=== PATIENT | female | born 1960 | race Caucasian/White ===

== ENCOUNTER → 2016-09-01 | Outpatient (REF) | payer OTHER ==
[~2016-09-01] MED LIST: /ADVA50050 IN; /ESOM40CA PO; /INSU7030 SC; /INSULEV SC; /PREG25CA PO; ACET500C PO; ACTO45TA PO; ADV250INH INH; ALBU17IN INH; ALBU83IN INH; ALEN10TA2 OR; AMBI10TA OR; AMBI10TA PO; AMBI5TAB PO; AMIT10TA PO; AMIT75TA PO; AMIT75TA2 OR; AMOX500T PO; ANOR1AER INH; ASPI81TA13 PO; ASPI81TA85 PO; ATOR40TA PO; AUGM500T34 PO; AUGM875T27 PO; BACITAB PO; BACITAB3 PO; BACL10TA2 PO; BACT2CRE EX; BACT2CRE TOP; BACT800T OR; BACT800T5 PO; BUPR150T5 PO; BUPR300T34 PO; BUPROPION PO; BYETTA SC; CARV6.25 PO; CIPR500T89 PO; CLAR1TAB2 PO; CLAR5CHW OR; COLA100C PO; COLA100C2 OR; DEXT50IN6 IV; DOCQ100C PO; DRIS50002 PO; DULC10SU2 PR; DULC5TAB PO; FENO105T4 PO; FERR325T PO; FERR325T3 PO; FLUC100T PO; FLUC10TA PO; FLUD1TA PO; FOSA70TA PO; GABA-279 PO; GABA-283 PO; GABA300C3 PO; GLUCAGON SC; HUMA100I3 SC; IBUP200C PO; INSUDET SC; INSUH10VL INJ; INSUH10VL SC; INSULIN PEN SC; K-TA1TAB PO; KADIAN OR; KLOR1POW2 PO; KLOR1TAB77 PO; KLOR20TA PO; LACT10SO29 PO; LIDO5DIS36 TD; LIPI20TA OR; LOTR15CR EXT; LYRI150C PO; METH-107 PO; MICO7CR PV; MIRALEX PO; NEXI40CA PO; NIAC1TAB PO; NIAS1TAB PO; NIAS500T2 OR; NIASPAN ER PO; NICO21PAT TD; NITR4TASL SL; NOVOLOG SC; OMEP40CA2 PO; OXYB5TAB5 OR; OXYGEN; PERCOCET PO; PHEN25IN3 PO; PHENERGAN; PREG50CA PO; PROM25TA PO; PROT1TAB2 PO; RISP0.5T16 PO; RISP2TAB3 PO; RISP3TAB16 OR; RISP3TAB18 PO; SENN8.6C PO; SENN8.6T10 PO; SENNSYP PO; SENO8.6T2 PO; SENO8.6T9 PO; SERT100T OR; SPIR25TA2 PO; SUMA125TA OR; SUMA50TA2 PO; TOBRAMYCIN SULFATE IV; TRAM50TA2 PO; TRIC145T19 OR; TRIL135C PO; TYLE325T5 PO; TYLENOL PO; VALI5TAB PO; VENTAER INH; VENTOLIN ROTAHALER INH; VICODINES TAB OR; VIT D 2000 OR; VITA10002 PO; VITA200028 PO; VITA400T15 PO; VITA500046 PO; VITAMIN D PO; XANA0.5T PO; ZANT150T PO; ZOLO100T PO; ZOLO50TA PO; [UNRECOGNIZED DRUG - CODE] PO; [UNRECOGNIZED DRUG - CODE] PO; [UNRECOGNIZED DRUG - OTHER]; [UNRECOGNIZED DRUG - OTHER] PO; [UNRECOGNIZED DRUG - OTHER] SC; byetta; heparin lock flush IV; lantus SC; lortab PO; novolin 70/30 SC; percocet PO; saline lock flush IV
== END ==
LOC: M SMT 12:45
PROVIDERS: ATTEND Nurse Practitioner Women's Health
DX: N39.0 Urinary tract infection, site not specified (principal)

== ENCOUNTER → 2016-09-03 | Outpatient (CLI) | payer OTHER ==
--- NOTE | 2016-09-05 00:03 | ECWPNPC ---
PATIENT NAME: JULIO ONEILL : 1960 GENDER: FEMALE VISIT DATE: 09/03/2016 DISCHARGE DATE: 09/03/16 1140 VISIT LOCKED DATE TIME: PHYSICIAN: SEEMA KIRAN RESOURCE: SEEMA KIRAN REASON FOR APPOINTMENT 1. BACK HISTORY OF PRESENT ILLNESS HISTORY OF PRESENT ILLNESS: PAIN THE PATIENT DESCRIBES THE PAIN... FALL RISK SCREENING: SCREENING :NO FALLS IN THE PAST YEAR TODAY'S VISIT: NOTES: FELL ONE MONTH AGO AND FX LEFT FOOT. IS NOT ABLE TO USE CANE THIS CAUSES FALLS. IS NOT ABLE TO USE WALKER THIS WILL NOT LOCK AND IT "ROLLS AWAY" ON HER AND HAS CAUSED FALLS. HAS VERY POOR BALANCE. REPORTS PAIN , NUMBNESS AND BURNING IN BOTH HANDS AND FEET. CURRENT MEDICATIONS TAKING AMITRIPTYLINE HCL 50 MG TABLET 1 TABLET AT BEDTIME ORALLY ONCE A DAY TAKING VITAMIN B-12 1000 MCG TABLET 1 TABLET ORALLY ONCE A DAY TAKING FLUDROCORTISONE ACETATE 0.1 MG TABLET 1 TABLET ORALLY THREE TIMES A WEEK TAKING LEVEMIR 100 UNIT/ML . 64 UNITS SUBCUTANEOUS DAILYAT BEDTIME TAKING NITROGLYCERIN 0.4 MG TABLET SUBLINGUAL 1 TABLET UNDER THE TONGUE SUBLINGUAL DIRECTED TAKING OMEPRAZOLE 40 MG CAPSULE DELAYED RELEASE 1 CAPSULE ORALLY ONCE A DAY TAKING VITAMIN D 89700 UNIT CAPSULE 1 CAPSULE ORALLY WEEKLY TAKING TRILIPIX 135 MG CAPSULE DELAYED RELEASE 1 CAPSULE ORALLY ONCE A DAY TAKING ALPHA LIPOIC ACID 200 MG CAPSULE ORALLY DAILY TAKING METHOCARBAMOL 500 MG TABLET 1 TAB ORALLY Q 8 HRS NEEDED TAKING SUMATRIPTAN SUCCINATE 50 MG TABLET 1 TABLET NEEDED ORALLY TWICE A DAY TAKING FLUTICASONE PROPIONATE 50 MCG/ACT SUSPENSION 1 SPRAY IN EACH NOSTRIL NASALLY ONCE A DAY TAKING BACLOFEN 10 MG TABLET 1 TABLET WITH FOOD OR MILK ORALLY TWICE DAILY NEEDED FOR SPASMS TAKING BUPROPION HCL (XL) 300 MG TABLET EXTENDED RELEASE 24 HOUR 1 TABLET IN THE MORNING ORALLY ONCE A DAY TAKING FOSAMAX 70 MG TABLET 1 TABLET ORALLY WEEKLY TAKING ASPIR-81 81 MG TABLET DELAYED RELEASE 1 TABLET ORALLY ONCE A DAY TAKING TIZANIDINE HCL 2 MG TABLET 1 TABLET ORALLY THREE TIMES A DAY TAKING LYRICA 150 MG CAPSULE 1 CAPSULE ORALLY TAKE 1 CAP BID MDD=2 TAKING KLOR-CON 20 MEQ TABLET 2 TABLETS WITH FOOD ORALLY TWICE DAILY TAKING ONE TOUCH DELICA 33 GAUGE DIRECTED SUBCUTANEOUSLY DX:E11.9 BID AND PRN FOR SYMPTOMS MDD6 TAKING ONE TOUCH ULTRA TEST STRIPS STRIPS 1 STRIP DX:E11.9 BID AND PRN FOR SYMPTOMS MDD6 TAKING GLUCOMETER DIRECTED DX:E11.9 BID AND PRN FOR SYMPTOMS TAKING URECHOLINE 25 MG TABLET 1 TABLET ON AN EMPTY STOMACH ORALLY THREE TIMES A DAY TAKING VENTOLIN HFA 108 (90 BASE) MCG/ACT AEROSOL SOLUTION 2 PUFFS INHALATION QID PRN TAKING ANORO ELLIPTA UMECLIDINIUM 62.5 MCG AND VILANTEROL 25 MCG INHALATION POWDER 1 INHALATION ORAL ONCE DAILY TAKING TRAMADOL HCL 50 MG TABLET 1 TABLET ORALLY EVERY 6 HRS PRN PAIN MDD=3 MEDICATION LIST REVIEWED AND RECONCILED WITH THE PATIENT PAST MEDICAL HISTORY DM II- DIAGNOSED ABOUT [address] 2ND TO DM HTN ANXIETY/DEPRESSION ASTHMA/COPD PFTS, [facility], 03/08/2015. NONSPECIFIC AIRFLOW REDUCTION, MILD AIR TRAPPING AND MODERATE DIFFUSION IMPAIRMENT. SOME IMPROVEMENT NOTED FOLLOWING BRONCHO-DILATOR ADMINISTRATION DIVERTICULOSIS GERD OSTEOPENIA DEXA 01/04 KIDNEY STONES ATROPHIC KIDNEY (REMOVED) MIGRAINE HEADACHES DIZZINESS HEART MURMUR; DX 2000 (HOLISTIC) ECHOARDIOGRAM08/05/10 ALTERED DIASTOLIC COMPLIANCE EF 65& STRESS NUCLEAR REGADENOSON08/07/10 NORMAL STUDY, NORMAL LV FUNCTION EF72% 03/21/2016, ECHOCARDIOGRAM [facility], NO SIGNIFICANT VALVULAR DISEASE, TRACE MITRAL INSUFFICIENCY, LEFT VENTRICULAR SYSTOLIC FUNCTION NORMAL, LEFT VENTRICULAR DIASTOLIC FUNCTION SHOWS ABNORMAL RELAXATION NO INTRACARDIAC MASSES OR VEGETATIONS OR PERICARDIAL EFFUSION. LEFT ANKLE FX-TX'D WITH BRACE ALLERGIES CIPRO: RASH: ALLERGY SOCIAL HISTORY GENERAL: TOBACCO USE ARE YOU A:NONSMOKER LEARNING BARRIERS / SPECIAL NEEDS ORIENTED TO PLAN OF CARE: PATIENT, PAIN MANAGEMENT PATIENT, ORIENTED TO PLAN OF CARE: PATIENT, PAIN MANAGEMENT PATIENT. NEW PATIENT PAIN DIARY TODAY'S VISITNOTES FROM 0-10, WHAT LEVEL IS YOUR PAIN TODAY?0 PAIN CLINIC PFS, CLERGY, PUBLIC HEALTH REFERRALS PFS REFERRAL NEEDED?NO CLERGY REFERRAL NEEDED?NO PUBLIC HEALTH REFERRAL NEEDED?NO WAS THE PROVIDER NOTIFIED OF ANY PERTINENT INFO?NO PFS REFERRAL NEEDED?NO CLERGY REFERRAL NEEDED?NO PUBLIC HEALTH REFERRAL NEEDED?NO WAS THE PROVIDER NOTIFIED OF ANY PERTINENT INFO?NO REVIEW OF SYSTEMS CONSTITUTIONAL: ANY CHANGE IN YOUR MEDICAL CONDITION? YES FELL 07/2016. FX'D LEFT ANKLE-TX'D WITH BRACE&NBSP;. CHILLS &NBSP;&NBSP; NO&NBSP;. FEVER &NBSP;&NBSP; NO&NBSP;. INFECTION: DO YOU HAVE NEW INFECTIONS? NO . DO YOU HAVE HISTORY OF MRSA? YES-UNSURE OF LOCATION . MUSCULOSKELETAL: ANY NEW PATTERNS OF PAIN OR NUMBNESS? YES RIGHT LOWER ABDOMEN. EVALUATED BY GABRIELE ANDERSON. URINE SPECIMEN SENT. . GASTROENTEROLOGY: ANY NEW CHANGE IN BOWEL CONTROL? NO . GENITOURINARY: ANY NEW CHANGE IN BLADDER CONTROL? NO . IS THERE A CHANCE YOU COULD BE ? NO . HEMATOLOGY/LYMPH: DO YOU TAKE ANY BLOOD THINNERS? (FOR EXAMPLE- COUMADIN, PLAVIX, AGGRENOX, PLATEL, PRADAXA, OR XARELTO) NO . WHEN WAS YOUR LAST DOSE? DATE: TIME: . NEUROLOGY: HAVE YOU FALLEN IN THE PAST 6 MONTHS? YES FELL 07/2016. FX'D LEFT ANKLE.&NBSP;. ANY NEW EXTREMITY NUMBNESS OR WEAKNESS? &NBSP;&NBSP; NO&NBSP;. CARDIOLOGY: DO YOU HAVE A PACEMAKER OR DEFIBRILLATOR? NO . RESPIRATORY: HAVE YOU BEEN SICK IN THE PAST WEEK? NO . FEVER NO . FLU LIKE SYMPTOMS? NO . COUGH YES, PRODUCTIVE, YELLOW SPUTUM . INTEGUMENTARY: DO YOU HAVE ANY RASHES OR OPEN SORES? NO . ALLERGIC/IMMUNO: ARE YOU ALLERGIC TO SHELLFISH OR IV DYE? NO . ANY NEW ALLERGIES? NO . PSYCHIATRIC: DO YOU HAVE THOUGHTS OF HURTING YOURSELF OR SOMEONE ELSE? NO . ARE YOU ABUSED, NEGLECTED, OR IN AN UNSAFE ENVIRONMENT? NO . ENDOCRINOLOGY: ARE YOU DIABETIC? YES . OTHER: DO YOU NEED ANY PRESCRIPTIONS? NO . IF YES, PLEASE LIST: ____ . ANY NEW PROBLEMS WITH YOUR MEDICATIONS? NO . WHEN DID YOU LAST EAT? ____ . WHEN DID YOU LAST DRINK? ____ . WHAT DID YOU LAST DRINK? ____ . NAME OF PERSON DRIVING YOU HOME? ____ . DO YOU HAVE ANY OTHER QUESTIONS OR CONCERNS NO . REVIEWED BY: PROVIDER: SEEMA ARAGON . VITAL SIGNS WT 166.4 LBS, HT 62.5", BMI 29.95 INDEX, BP 147/79 MM HG, HR 79 /MIN, RR 16 /MIN, TEMP 97.3 F, OXYGEN SAT % 94%, NA INITIALS SC 10:42, REVIEWED BY: RINA. EXAMINATION GENERAL EXAMINATION: GENERAL APPEARANCE:GOOD COLOR. PSYCHALERT , ORIENTED X 3 , APPROPRIATE MOOD AND AFFECT . LUNGS:CLEAR TO AUSCULTATION BILATERALLY. HEART:HEART RATE REGULAR, NO MURMURS. MUSCULOSKELETAL:HYPERSENSITIVITY TO LIGHT TOUCH OVER LUMBAR REGION. VERY POOR BALANCE. USING WALL FOR SUPPORT. . EXTREMITIES:WALKING CAST IN PLACE LEFT FOOT. SKIN:FINGER TIPS BOTH HANDS SPLIT, FINGERS ALTERNAT IN COLOR FROM DUSKY BLUE TO WHITE. FINGERS VERY COLD TO TOUCH. ECCYMOTIC AREAS NOTED BILATERAL FOREARMS.. NEUROLOGIC EXAM:MARKED DECREASE IN SENSATION IN STOCKING/GLOVE FASHIN OVER BILATERAL LOWER EXTREMITIES TO LEVEL OF KNEE, AND UPPER EXTREMITIES TO MID FOREARM. ASSESSMENTS LUMBAR SPONDYLOSIS - M47.816 (PRIMARY) RAYNAUD'S DISEASE WITH GANGRENE - I73.01 NEUROPATHY - G62.9 TREATMENT LUMBAR SPONDYLOSIS START NIFEDIPINE CAPSULE, 10 MG, 1 CAPSULE, ORALLY, DAILY, 30 DAY(S), 30 CAPSULE, REFILLS 1 NOTES: USE WALKER. NEW SCRIPT FOR WALKER GIVEN. IF UNABLE TO OBTAIN THIS RECOMMEND CONTACT [facility] SMOKING - ESSENTIAL FOR RAYNAUDS OF HANDS. PREVENTIVE MEDICINE PAIN CLINIC TEACHING: MEDICATIONS PRINTED HANDOUT FOR NIFEDIPINE GIVEN/REVIEWED.. PROCEDURE CODES FA211 ESTABILISHED PATIENT [facility] CHARGE DISPOSITION & COMMUNICATION FOLLOW UP I MONTH ELECTRONICALLY SIGNED BY ASH MYLES ON 09/04/2016 AT 11:17 AM EST DISCLAIMER : THIS IS A VISIT SUMMARY EXTRACTED FROM THE [employer] CHART. IT IS NOT A COPY OF THE [employer] PROGRESS NOTE. MICHAEL
== END ==
LOC: M PAIN 10:40
PROVIDERS: ATTEND Nurse Practitioner Family
DX: Z09 Encounter for follow-up examination after completed treatment for conditions other than malignant neoplasm (principal); G89.29 Other chronic pain; M47.816 Spondylosis without myelopathy or radiculopathy, lumbar region; I73.01 Raynaud's syndrome with gangrene; G62.9 Polyneuropathy, unspecified; E11.9 Type 2 diabetes mellitus without complications; I10 Essential (primary) hypertension; F41.9 Anxiety disorder, unspecified; F32.9 Major depressive disorder, single episode, unspecified; J44.9 Chronic obstructive pulmonary disease, unspecified; K21.9 Gastro-esophageal reflux disease without esophagitis; M85.80 Other specified disorders of bone density and structure, unspecified site; G43.909 Migraine, unspecified, not intractable, without status migrainosus; Z88.8 Allergy status to other drugs, medicaments and biological substances; Z79.82 Long term (current) use of aspirin; Z79.52 Long term (current) use of systemic steroids; Z79.891 Long term (current) use of opiate analgesic; Z79.899 Other long term (current) drug therapy; Z87.81 Personal history of (healed) traumatic fracture; Z86.14 Personal history of Methicillin resistant Staphylococcus aureus infection; Z90.5 Acquired absence of kidney

== ENCOUNTER → 2016-10-24 | Outpatient (CLI) | payer OTHER ==
[~2016-10-24] MED LIST changes: -COLA100C PO; +COLA100C3 PO; +GABA-282 PO; -GABA300C3 PO; +TRIL135C6 PO
[2016-10-24 12:58] LABS: ALBUMIN 2.5 GM/DL (3.2-5.2); CALCIUM LEVEL 9.5 MG/DL (8.5-10.1); CREATININE FOR GFR 1.19 MG/DL (0.55-1.02); GLOMERULAR FILTRATION RATE 50.3 (>51); PHOSPHORUS LEVEL 4.4 MG/DL (2.5-4.9)
[2016-10-24 13:05] LABS: MEAN CORPUSCULAR HGB CONC 33.2 g/dl (32.0-36.5); MEAN CORPUSCULAR VOLUME 90.4 fl (80.0-96.0); RED CELL DISTRIBUTION WIDTH 12.7 % (11.5-14.5); WHITE BLOOD COUNT 11.4 K/mm3 (4.0-10.0)
[2016-10-24 13:34] LABS: BANDS 1 % (< 11); BASOPHILS 1 % (0-4); EOSINOPHILS 1 % (0-5)
[2016-10-24 13:35] LABS: ANISOCYTOSIS 1+
== END ==
LOC: M WUC 11:23
PROVIDERS: ATTEND Physician Assistant
DX: M54.5 Low back pain (principal)

== ENCOUNTER → 2016-10-26 | Outpatient (CLI) | payer OTHER ==
--- NOTE | 2016-10-26 12:44 | REP ---
Chest two views HISTORY: Fever Comparison: 03/10/2016 The lungs are clear. The heart is normal in size. The pulmonary vasculature is normal in appearance. The bony structure is intact. IMPRESSION: No acute disease. Signed by Philip Camargo MD 10/26/2016 12:35 P
[2016-10-26 13:15] LABS: BASO # 0.1 K/mm3 (0.0-0.2); EOS # 0.2 K/mm3 (0.0-0.50); EOS % 2.4 % (0.0-3.0); LARGE UNSTAINED CELL # 0.2 K/mm3 (0.0-0.4); LYMPH # 2.2 K/mm3 (1.5-4.5); LYMPH % 22.1 % (24.0-44.0); MEAN CORPUSCULAR HEMOGLOBIN 29.8 pg (27.0-33.0); MEAN CORPUSCULAR HGB CONC 33.2 g/dl (32.0-36.5); MEAN CORPUSCULAR VOLUME 89.8 fl (80.0-96.0); MONO # 0.6 K/mm3 (0.0-0.8); MONO % 6.3 % (0.0-5.0); NEUTROPHILS # 6.1 K/mm3 (1.8-7.7); NEUTROPHILS % 66.1 % (36.0-66.0); PLATELET COUNT, AUTOMATED 339 k/mm3 (150-450); RED CELL DISTRIBUTION WIDTH 12.6 % (11.5-14.5); WHITE BLOOD COUNT 9.2 K/mm3 (4.0-10.0)
[2016-10-26 13:45] LABS: ALBUMIN 2.5 GM/DL (3.2-5.2); ALBUMIN/GLOBULIN RATIO 0.69 (1.00-1.93); BILIRUBIN,TOTAL 0.2 MG/DL (0.2-1.0); CALCIUM LEVEL 9.6 MG/DL (8.5-10.1); CREATININE FOR GFR 1.19 MG/DL (0.55-1.02); GLOMERULAR FILTRATION RATE 50.3 (>51); POTASSIUM SERUM 5.1 MEQ/L (3.5-5.1); TOTAL PROTEIN 6.1 GM/DL (6.4-8.2)
== END ==
LOC: M WUC 12:00
PROVIDERS: ATTEND Physician Assistant
DX: R50.9 Fever, unspecified (principal)

== ENCOUNTER 2016-10-28 17:43 | Emergency (ER) | payer OTHER ==
[~2016-10-28] VITALS: Ht 157.5 cm; Wt 69.9 kg
[2016-10-28 18:53] LABS: BASO # 0.1 K/mm3 (0.0-0.2); BASO % 0.6 % (0.0-1.0); EOS # 0.3 K/mm3 (0.0-0.50); EOS % 2.8 % (0.0-3.0); LARGE UNSTAINED CELL # 0.3 K/mm3 (0.0-0.4); LARGE UNSTAINED CELL % 2.5 % (0.0-4.0); LYMPH # 2.3 K/mm3 (1.5-4.5); MEAN CORPUSCULAR HEMOGLOBIN 31.9 pg (27.0-33.0); MEAN CORPUSCULAR HGB CONC 34.8 g/dl (32.0-36.5); MEAN CORPUSCULAR VOLUME 91.8 fl (80.0-96.0); MONO # 0.6 K/mm3 (0.0-0.8); MONO % 6.3 % (0.0-5.0); NEUTROPHILS # 6.6 K/mm3 (1.8-7.7); NEUTROPHILS % 64.8 % (36.0-66.0); PLATELET COUNT, AUTOMATED 319 k/mm3 (150-450); RED CELL DISTRIBUTION WIDTH 12.6 % (11.5-14.5); WHITE BLOOD COUNT 10.2 K/mm3 (4.0-10.0)
[2016-10-28 19:05] LABS: ALBUMIN 2.6 GM/DL (3.2-5.2); ALBUMIN/GLOBULIN RATIO 0.63 (1.00-1.93); ALKALINE PHOSPHATASE 111 U/L (45-117); ALT/SGPT 38 U/L (12-78); ANION GAP 9 MEQ/L (8-16); AST/SGOT 31 U/L (15-37); BILIRUBIN,DIRECT < 0.1 MG/DL (0.0-0.2); BILIRUBIN,TOTAL 0.1 MG/DL (0.2-1.0); BLOOD UREA NITROGEN 36 MG/DL (7-18); CALCIUM LEVEL 9.1 MG/DL (8.5-10.1); CARBON DIOXIDE LEVEL 26 MEQ/L (21-32); CHLORIDE LEVEL 103 MEQ/L (98-107); CREATININE FOR GFR 1.08 MG/DL (0.55-1.02); GLOMERULAR FILTRATION RATE 56.3 (>51); GLUCOSE, FASTING 105 MG/DL (70-105); POTASSIUM SERUM 4.4 MEQ/L (3.5-5.1); SODIUM LEVEL 138 MEQ/L (136-145); TOTAL PROTEIN 6.7 GM/DL (6.4-8.2)
--- NOTE | 2016-10-28 20:20 | REPUSA ---
CT of the head Clinical history: Headache. Comparison: 01/29/2014. Technique: Multiple axial CT images were obtained through the head without administration of contrast . Findings: The ventricles and sulci are symmetric bilaterally. There is no evidence of acute hemorrhag e or infarct. There is no midline shift, mass effect, or extra-axial fluid collection. The osseous st ructures are unremarkable. The visualized paranasal sinuses and mastoid air cells are clear. Impression: Negative study.
--- NOTE | 2016-10-28 20:30 | REPUSA ---
Clinical history: Pain, swelling. Findings: The common femoral, superficial femoral, popliteal, and other deep venous structures compre ss normally and demonstrate normal color Doppler flow. Normal venous waveforms with augmentation are seen. Impression: No evidence of deep vein thrombosis in either femoral popliteal venous system.
[2016-10-28 21:36] VITALS: BP 132/88
[2016-10-28] MEDS ORDERED: PERCOCET 5MG/325MG TAB PO ONE (22:00)
[2016-10-28] MEDS ORDERED: OXYCODONE/APAP 5MG/325MG(BULK FOR ED) 1 TABLET PO ONE (22:00)
--- NOTE | 2016-10-29 08:18 | ECGEPIP ---
Stationary ECG Study [facility] - ED Test Date: 2016-10-28 Pat Name: JULIO ONEILL Department: Room: - Gender: F Superintendent Local: ruth : 1960 Requested By: ROMEO Hodges Order Number: [id number] Reading MD: Sylwia Saavedra Measurements Intervals [place] Rate: 69 P: 36 UT: 184 QRS: -7 QRSD: 110 T: 79 QT: 383 QTc: 411 Interpretive Statements SINUS RHYTHM POSSIBLE ANTERIOR MYOCARDIAL INFARCTION, OF INDETERMINATE AGE SIMILAR 01/16/16 Electronically Signed On 10-29-2016 8:18:25 EDT by Sylwia Saavedra
== END 2016-10-28 22:14 | disposition home or self-care (01) ==
LOC: M ED 18:46
DX: R07.9 Chest pain, unspecified (principal); R51 Headache; I51.9 Heart disease, unspecified; I12.9 Hypertensive chronic kidney disease with stage 1 through stage 4 chronic kidney disease, or unspecified chronic kidney disease; E11.22 Type 2 diabetes mellitus with diabetic chronic kidney disease; N18.9 Chronic kidney disease, unspecified; F41.9 Anxiety disorder, unspecified; F32.9 Major depressive disorder, single episode, unspecified; F17.200 Nicotine dependence, unspecified, uncomplicated; Z87.442 Personal history of urinary calculi; Z96.0 Presence of urogenital implants; Z90.5 Acquired absence of kidney

== ENCOUNTER → 2016-10-28 | Outpatient (CLI) | payer OTHER ==
[2016-10-28 14:53] LABS: BASO # 0.1 K/mm3 (0.0-0.2); BASO % 0.6 % (0.0-1.0); EOS # 0.2 K/mm3 (0.0-0.50); EOS % 1.6 % (0.0-3.0); LARGE UNSTAINED CELL # 0.2 K/mm3 (0.0-0.4); LARGE UNSTAINED CELL % 1.3 % (0.0-4.0); LYMPH # 2.4 K/mm3 (1.5-4.5); LYMPH % 19.9 % (24.0-44.0); MEAN CORPUSCULAR HEMOGLOBIN 30.2 pg (27.0-33.0); MEAN CORPUSCULAR HGB CONC 33.6 g/dl (32.0-36.5); MEAN CORPUSCULAR VOLUME 89.9 fl (80.0-96.0); MONO # 0.6 K/mm3 (0.0-0.8); NEUTROPHILS # 8.2 K/mm3 (1.8-7.7); NEUTROPHILS % 71.5 % (36.0-66.0); PLATELET COUNT, AUTOMATED 321 k/mm3 (150-450); RED CELL DISTRIBUTION WIDTH 12.7 % (11.5-14.5); WHITE BLOOD COUNT 11.5 K/mm3 (4.0-10.0)
[2016-10-28 15:11] LABS: ALBUMIN 2.4 GM/DL (3.2-5.2); CALCIUM LEVEL 9.2 MG/DL (8.5-10.1); CREATININE FOR GFR 1.17 MG/DL (0.55-1.02); GLOMERULAR FILTRATION RATE 51.3 (>51); MAGNESIUM LEVEL 1.6 MG/DL (1.8-2.4); PHOSPHORUS LEVEL 3.9 MG/DL (2.5-4.9); POTASSIUM SERUM 4.8 MEQ/L (3.5-5.1)
== END ==
LOC: M WUC 11:58
PROVIDERS: ATTEND Internal Medicine Nephrology
DX: N18.3 Chronic kidney disease, stage 3 (moderate) (principal)

== ENCOUNTER → 2016-10-29 | Outpatient (REF) | payer OTHER | LOC: M SFHCPLAZ 13:08 | PROVIDERS: ATTEND Nurse Practitioner Adult Health | DX: E11.21 Type 2 diabetes mellitus with diabetic nephropathy (principal) ==

== ENCOUNTER → 2016-11-04 | Outpatient (CLI) | payer OTHER ==
[~2016-11-04] MED LIST changes: +ALPH1CAP PO; +ASPI81TAEC PO; +BETH50TA2 PO; +FLON1SPR; +KEFL500C7 PO; +LISI2.5T3 PO; +MAGN1TAB25 PO; +MIRA33504 PO; +NIFE10CA2 PO; +QUES4POW PO; +TIZA2CAP3 PO; +TOUJ1.2I SC
--- NOTE | 2016-11-24 23:43 | ECWPNPC ---
PATIENT NAME: JULIO ONEILL : 1960 GENDER: FEMALE VISIT DATE: 11/04/2016 DISCHARGE DATE: 11/04/16 1133 VISIT LOCKED DATE TIME: PHYSICIAN: SEEMA KIRAN RESOURCE: SEEMA KIRAN REASON FOR APPOINTMENT 1. BACK HISTORY OF PRESENT ILLNESS HISTORY OF PRESENT ILLNESS: PAIN THE PATIENT DESCRIBES THE PAIN... FALL RISK SCREENING: SCREENING :NO FALLS IN THE PAST YEAR TODAY'S VISIT: NOTES: RATES PAIN TODAY 9/10. DESCRIBES PAIN CONSTANT, BURNING AND TENDER. PAIN IS CENTERED TODAY OVER MID AND UPPER BACK. CAME BY AMBULANCE TO HOSPITAL.STATES IS HAVING INTENSE PAIN IN LEGS AND BACK. TELLS ME THAT THE PERCOCET GIVEN IN THE ER HELPED A LOT. TELLS ME THAT SHE WAS STARTED ON MEDICATION BY DR ARAYA FOR LEG PAIN.. CURRENT MEDICATIONS TAKING AMITRIPTYLINE HCL 50 MG TABLET 1 TABLET AT BEDTIME ORALLY ONCE A DAY TAKING FLUDROCORTISONE ACETATE 0.1 MG TABLET 1 TABLET ORALLY THREE TIMES A WEEK TAKING NITROGLYCERIN 0.4 MG TABLET SUBLINGUAL 1 TABLET UNDER THE TONGUE SUBLINGUAL DIRECTED TAKING OMEPRAZOLE 40 MG CAPSULE DELAYED RELEASE 1 CAPSULE ORALLY ONCE A DAY TAKING TRILIPIX 135 MG CAPSULE DELAYED RELEASE 1 CAPSULE ORALLY ONCE A DAY TAKING ALPHA LIPOIC ACID 200 MG CAPSULE ORALLY DAILY TAKING SUMATRIPTAN SUCCINATE 50 MG TABLET 1 TABLET NEEDED ORALLY TWICE A DAY TAKING FLUTICASONE PROPIONATE 50 MCG/ACT SUSPENSION 1 SPRAY IN EACH NOSTRIL NASALLY ONCE A DAY TAKING ASPIR-81 81 MG TABLET DELAYED RELEASE 1 TABLET ORALLY ONCE A DAY TAKING LYRICA 150 MG CAPSULE 1 CAPSULE ORALLY TAKE 1 CAP BID MDD=2 TAKING KLOR-CON 20 MEQ TABLET 2 TABLETS WITH FOOD ORALLY TWICE DAILY TAKING ONE TOUCH DELICA 33 GAUGE DIRECTED SUBCUTANEOUSLY DX:E11.9 BID AND PRN FOR SYMPTOMS MDD6 TAKING ONE TOUCH ULTRA TEST STRIPS STRIPS 1 STRIP DX:E11.9 BID AND PRN FOR SYMPTOMS MDD6 TAKING GLUCOMETER DIRECTED DX:E11.9 BID AND PRN FOR SYMPTOMS TAKING URECHOLINE 25 MG TABLET 1 TABLET ON AN EMPTY STOMACH ORALLY THREE TIMES A DAY TAKING VENTOLIN HFA 108 (90 BASE) MCG/ACT AEROSOL SOLUTION 2 PUFFS INHALATION QID PRN TAKING ANORO ELLIPTA UMECLIDINIUM 62.5 MCG AND VILANTEROL 25 MCG INHALATION POWDER 1 INHALATION ORAL ONCE DAILY TAKING NIFEDIPINE 10 MG CAPSULE 1 CAPSULE ORALLY DAILY TAKING BUPROPION HCL ER (XL) 300 MG TABLET EXTENDED RELEASE 24 HOUR 1 TABLET IN THE MORNING ORALLY ONCE A DAY TAKING FOSAMAX 70 MG TABLET 1 TABLET ORALLY WEEKLY TAKING TIZANIDINE HCL 2 MG TABLET 1 TABLET ORALLY THREE TIMES A DAY TAKING BACLOFEN 10 MG TABLET 1 TABLET WITH FOOD OR MILK ORALLY TWICE DAILY NEEDED FOR SPASMS TAKING TRAMADOL HCL 50 MG TABLET 1-2 TABLET ORALLY EVERY 6 HRS PRN PAIN MDD=4 TAKING TOUJEO SOLOSTAR 300 UNIT/ML SOLUTION PEN-INJECTOR 64 UNITS SUBCUTANEOUS DAILY TAKING PEN NEEDLES 31G X 8 MM MISCELLANEOUS 1 WITH TOUJEO SUBCUTANEOUSLY DAILY - ICD10 - E11.21 TAKING DEPEND ADJUSTABLE UNDERWEAR LG - MISCELLANEOUS 1 ICD10 - E11.21 NEEDED TAKING OXYCODONE-ACETAMINOPHEN 5-325 MG TABLET 1 TABLET NEEDED ORALLY EVERY 6 HRS, NOTES: TAKING ONCE A DAY-FROM ER TAKING [facility] PROTECTIVE UNDERWEAR LGE - MISCELLANEOUS DIRECTED 44-58 RX:N39.3 TAKING LISINOPRIL 10 MG TABLET 1 TABLET ORALLY ONCE A DAY NOT-TAKING VITAMIN B-12 1000 MCG TABLET 1 TABLET ORALLY ONCE A DAY NOT-TAKING VITAMIN D 03509 UNIT CAPSULE 1 CAPSULE ORALLY WEEKLY NOT-TAKING NOVOLOG FLEXPEN 100 UNIT/ML SOLUTION PEN-INJECTOR SS SUBCUTANEOUS THREE TIMES DAILY NOT-TAKING METHOCARBAMOL 500 MG TABLET 1 TAB ORALLY Q 8 HRS NEEDED MEDICATION LIST REVIEWED AND RECONCILED WITH THE PATIENT PAST MEDICAL HISTORY DM II- DIAGNOSED ABOUT [address] [facility] 2ND TO DM HTN ANXIETY/DEPRESSION ASTHMA/COPD PFTS, [facility], 03/08/2015. NONSPECIFIC AIRFLOW REDUCTION, MILD AIR TRAPPING AND MODERATE DIFFUSION IMPAIRMENT. SOME IMPROVEMENT NOTED FOLLOWING BRONCHO-DILATOR ADMINISTRATION DIVERTICULOSIS GERD OSTEOPENIA DEXA 01/04 KIDNEY STONES ATROPHIC KIDNEY (REMOVED) MIGRAINE HEADACHES DIZZINESS HEART MURMUR; DX 2000 (HOLISTIC) ECHOARDIOGRAM08/05/10 ALTERED DIASTOLIC COMPLIANCE EF 65& STRESS NUCLEAR REGADENOSON08/07/10 NORMAL STUDY, NORMAL LV FUNCTION EF72% 03/21/2016, ECHOCARDIOGRAM [facility] [place] [facility], NO SIGNIFICANT VALVULAR DISEASE, TRACE MITRAL INSUFFICIENCY, LEFT VENTRICULAR SYSTOLIC FUNCTION NORMAL, LEFT VENTRICULAR DIASTOLIC FUNCTION SHOWS ABNORMAL RELAXATION NO INTRACARDIAC MASSES OR VEGETATIONS OR PERICARDIAL EFFUSION. LEFT ANKLE FX-TX'D WITH BRACE ALLERGIES CIPRO: RASH: ALLERGY SURGICAL HISTORY NEPHROSTOMY TUBE PLACEMENT UPJ REPAIR ROBOTIC ASSISTED RIGHT RADICAL NEPHRECTOMY; REMOVAL OF RIGHT DOUBLE J STENT 12/20/2013 FAMILY HISTORY FATHER: , UNKNOWN HEALTH MOTHER: , UNKNOWN 6 BROTHERS (2 )- UNKNOWN HEALTH5 SISTERS UNKNOWN HEALTH3 BOYS ( 1 MISSING) HEALTHY1 DAUGHTER, HEALTHY 6 BROTHERS (2 )- UNKNOWN HEALTH5 SISTERS UNKNOWN HEALTH3 BOYS ( 1 MISSING) HEALTHY1 DAUGHTER, HRALTHY. HOSPITALIZATION/MAJOR DIAGNOSTIC PROCEDURE SURGERY RELATED PYELONEPHRITIS UNCONTROLLED DIABETES 08/29/13 DEPRESSION/MENTAL HEALTH 12/2013 [facility]- URINARY RETENTION-NOW RESOLVED, UTI, DIABETIC NEUROPATHY, TYPE 2 DIABETES, HTN, DYSLIPIDEMIA, COPD, CKD STAGE III, CHRONIC LOW BACK PAIN 03/10-03/12/2016 [facility] ER-WEAKNESS 10/28/2016 REVIEW OF SYSTEMS CONSTITUTIONAL: ANY CHANGE IN YOUR MEDICAL CONDITION? NO . CHILLS NO . FEVER NO . INFECTION: DO YOU HAVE NEW INFECTIONS? NO . DO YOU HAVE HISTORY OF MRSA? NO . MUSCULOSKELETAL: ANY NEW PATTERNS OF PAIN OR NUMBNESS? NO . GASTROENTEROLOGY: ANY NEW CHANGE IN BOWEL CONTROL? NO . GENITOURINARY: ANY NEW CHANGE IN BLADDER CONTROL? NO . IS THERE A CHANCE YOU COULD BE ? NO . HEMATOLOGY/LYMPH: DO YOU TAKE ANY BLOOD THINNERS? (FOR EXAMPLE- COUMADIN, PLAVIX, AGGRENOX, PLATEL, PRADAXA, OR XARELTO) NO . WHEN WAS YOUR LAST DOSE? DATE: TIME: . NEUROLOGY: HAVE YOU FALLEN IN THE PAST 6 MONTHS? YES . ANY NEW EXTREMITY NUMBNESS OR WEAKNESS? NO . CARDIOLOGY: DO YOU HAVE A PACEMAKER OR DEFIBRILLATOR? NO . RESPIRATORY: HAVE YOU BEEN SICK IN THE PAST WEEK? NO . FEVER NO . FLU LIKE SYMPTOMS? NO . COUGH NO . INTEGUMENTARY: DO YOU HAVE ANY RASHES OR OPEN SORES? NO . ALLERGIC/IMMUNO: ARE YOU ALLERGIC TO SHELLFISH OR IV DYE? NO . ANY NEW ALLERGIES? NO . PSYCHIATRIC: DO YOU HAVE THOUGHTS OF HURTING YOURSELF OR SOMEONE ELSE? YES . ARE YOU ABUSED, NEGLECTED, OR IN AN UNSAFE ENVIRONMENT? YES . ENDOCRINOLOGY: ARE YOU DIABETIC? YES . OTHER: DO YOU NEED ANY PRESCRIPTIONS? NO . IF YES, PLEASE LIST: ____ . ANY NEW PROBLEMS WITH YOUR MEDICATIONS? NO . WHEN DID YOU LAST EAT? ____ . WHEN DID YOU LAST DRINK? ____ . WHAT DID YOU LAST DRINK? ____ . NAME OF PERSON DRIVING YOU HOME? ____ . DO YOU HAVE ANY OTHER QUESTIONS OR CONCERNS NO . REVIEWED BY: PROVIDER: SEEMA ARAGON . VITAL SIGNS WT 172.6 LBS, HT 62.5", BMI 31.06 INDEX, BP 123/76 MM HG, HR 79 /MIN, RR 18 /MIN, TEMP 97.1 F, OXYGEN SAT % 95%, NA INITIALS SC 10:38. EXAMINATION GENERAL EXAMINATION: GENERAL APPEARANCE:GOOD COLOR. PSYCHALERT , ORIENTED X 3, ANXOIUS. LUNGS:CLEAR TO AUSCULTATION BILATERALLY. HEART:HEART RATE REGULAR, NO MURMURS. MUSCULOSKELETAL:HYPERSENSITIVITY TO LIGHT TOUCH OVER LUMBAR REGION. VERY POOR BALANCE. USIES WALKER. EXTREMITIES:WALKING CAST IN PLACE LEFT FOOT. SKIN:FINGER TIPS BOTH HANDS SPLIT, FINGERS ALTERNAT IN COLOR FROM DUSKY BLUE TO WHITE. FINGERS VERY COLD TO TOUCH. ECCYMOTIC AREAS NOTED BILATERAL FOREARMS.. NEUROLOGIC EXAM:MARKED DECREASE IN SENSATION IN STOCKING/GLOVE FASHIN OVER BILATERAL LOWER EXTREMITIES TO LEVEL OF KNEE, AND UPPER EXTREMITIES TO MID FOREARM. ASSESSMENTS LUMBAR SPONDYLOSIS - M47.816 (PRIMARY) NEUROPATHY - G62.9 CHRONIC USE OF OPIATE FOR THERAPEUTIC PURPOSE - Z79.891 TREATMENT LUMBAR SPONDYLOSIS REFILL TRAMADOL HCL TABLET, 50 MG, 1-2 TABLET, ORALLY, EVERY 6 HRS PRN PAIN MDD=4, 30 DAY(S), 120, REFILLS 1 NOTES: UTOX TODAY. NO CHANGES TO MEDS TODAY. PROCEDURE CODES FA211 ESTABILISHED PATIENT [facility] CHARGE DISPOSITION & COMMUNICATION FOLLOW UP 1 MONTH (REASON: BACK PAIN/LEG PAIN) ELECTRONICALLY SIGNED BY ASH MYLES ON 11/24/2016 AT 03:29 PM EDT DISCLAIMER : THIS IS A VISIT SUMMARY EXTRACTED FROM THE [employer] CHART. IT IS NOT A COPY OF THE [employer] PROGRESS NOTE. MICHAEL
== END ==
LOC: M PAIN 10:20
PROVIDERS: ATTEND Nurse Practitioner Family
DX: G89.29 Other chronic pain (principal); M47.816 Spondylosis without myelopathy or radiculopathy, lumbar region; G62.9 Polyneuropathy, unspecified; E11.21 Type 2 diabetes mellitus with diabetic nephropathy; I10 Essential (primary) hypertension; F41.9 Anxiety disorder, unspecified; F32.9 Major depressive disorder, single episode, unspecified; J44.9 Chronic obstructive pulmonary disease, unspecified; K21.9 Gastro-esophageal reflux disease without esophagitis; M85.80 Other specified disorders of bone density and structure, unspecified site; G43.909 Migraine, unspecified, not intractable, without status migrainosus; Z88.8 Allergy status to other drugs, medicaments and biological substances; Z79.82 Long term (current) use of aspirin; Z79.891 Long term (current) use of opiate analgesic; Z79.4 Long term (current) use of insulin; Z79.899 Other long term (current) drug therapy

== ENCOUNTER 2016-11-16 19:28 | Inpatient (IN) | payer OTHER ==
[~2016-11-16] VITALS: Ht 157.5 cm; Wt 75.7 kg
[~2016-11-16 19:28] MED LIST changes: -ALPH1CAP PO; -ASPI81TAEC PO; -BETH50TA2 PO; -FLON1SPR; -KEFL500C7 PO; -LISI2.5T3 PO; -MAGN1TAB25 PO; -MIRA33504 PO; -NIFE10CA2 PO; -QUES4POW PO; -TIZA2CAP3 PO; -TOUJ1.2I SC
[2016-11-16] MEDS ORDERED: LISI2.5T3 PO (19:41)
[2016-11-16] MEDS ORDERED: ALBU17IN INH (19:41)
[2016-11-16] MEDS ORDERED: NIFE10CA2 PO (19:41)
[2016-11-16] MEDS ORDERED: BETH50TA2 PO (19:41)
[2016-11-16] MEDS ORDERED: TIZA2CAP3 PO (19:41)
[2016-11-16] MEDS ORDERED: MAGN1TAB25 PO (19:41)
[2016-11-16 21:13] LABS: BASO # 0.1 K/mm3 (0.0-0.2); BASO % 0.9 % (0.0-1.0); EOS # 0.3 K/mm3 (0.0-0.50); EOS % 2.8 % (0.0-3.0); LARGE UNSTAINED CELL # 0.2 K/mm3 (0.0-0.4); LARGE UNSTAINED CELL % 1.6 % (0.0-4.0); LYMPH # 2.2 K/mm3 (1.5-4.5); LYMPH % 21.1 % (24.0-44.0); MEAN CORPUSCULAR HEMOGLOBIN 30.7 pg (27.0-33.0); MEAN CORPUSCULAR HGB CONC 33.3 g/dl (32.0-36.5); MEAN CORPUSCULAR VOLUME 92.3 fl (80.0-96.0); MONO # 0.7 K/mm3 (0.0-0.8); MONO % 7.1 % (0.0-5.0); NEUTROPHILS # 6.5 K/mm3 (1.8-7.7); NEUTROPHILS % 66.5 % (36.0-66.0); PLATELET COUNT, AUTOMATED 337 k/mm3 (150-450); RED CELL DISTRIBUTION WIDTH 13.5 % (11.5-14.5); WHITE BLOOD COUNT 9.7 K/mm3 (4.0-10.0)
[2016-11-16 21:32] LABS: ALBUMIN 2.7 GM/DL (3.2-5.2); ALBUMIN/GLOBULIN RATIO 0.61 (1.00-1.93); ALKALINE PHOSPHATASE 136 U/L (45-117); ALT/SGPT 35 U/L (12-78); AMYLASE 117 U/L (25-115); ANION GAP 8 MEQ/L (8-16); AST/SGOT 25 U/L (15-37); BILIRUBIN,DIRECT < 0.1 MG/DL (0.0-0.2); BILIRUBIN,TOTAL 0.2 MG/DL (0.2-1.0); BLOOD UREA NITROGEN 40 MG/DL (7-18); CALCIUM LEVEL 8.3 MG/DL (8.5-10.1); CARBON DIOXIDE LEVEL 19 MEQ/L (21-32); CHLORIDE LEVEL 111 MEQ/L (98-107); CREATININE FOR GFR 1.19 MG/DL (0.55-1.02); GLOMERULAR FILTRATION RATE 50.3 (>51); GLUCOSE, FASTING 123 MG/DL (70-105); POTASSIUM SERUM 5.5 MEQ/L (3.5-5.1); SODIUM LEVEL 138 MEQ/L (136-145); TOTAL PROTEIN 7.1 GM/DL (6.4-8.2)
[2016-11-16] MEDS ORDERED: MORPHINE 4 MG/ML 1ML SYRINGE IV ONE (21:45)
[2016-11-16] MEDS ORDERED: cefTRIAXone SOD 1 GM in D5W MINI-BAG PLUS 50 ML IV ONE (22:00)
[2016-11-16] MEDS ORDERED: ISOVUE-370 76% 100ML VIAL (Q9967) As Ordered ONE (22:07)
[2016-11-16] MEDS ORDERED: NS 1,000 ML IV ONE (22:30)
--- NOTE | 2016-11-16 22:50 | REPUSA ---
CT of the abdomen and pelvis with contrast Clinical statement: Pain. Technique: Multiple axial CT images were obtained from the base of the lungs through the floor of the pelvis utilizing 5 mm axial slices after administration of nonionic intravenous contrast. Coronal an d sagittal reconstructions were also obtained. Comparison: 03/10/2016. Findings: Chest: The visualized lung bases are clear. Abdomen: The liver, spleen, pancreas, gallbladder, and adrenal glands are unremarkable. The left kid helene is unremarkable. The right kidney is absent. The aorta is within normal limits. There is no evide nce of abdominal lymphadenopathy or ascites. Pelvis: The bowel is unremarkable, with no obstructive or inflammatory changes. The appendix is bhavya l. The urinary bladder is within normal limits. The other pelvic structures appear grossly intact. Th ere is no evidence of pelvic lymphadenopathy or ascites. Bones: There are no suspicious osseous abnormalities seen. Impression: 1. No acute findings to explain the patient's pain. 2. No obstructive or inflammatory bowel changes. 3. The left kidney is unremarkable. 4. Overall, stable examination.
[2016-11-16] MEDS ORDERED: MORPHINE 2 MG/ML 1ML SYRINGE IV PRN (23:00)
[2016-11-16] MEDS ORDERED: ONDANSETRON 4MG/2ML VIAL (J2405) IV PRN (23:00)
[2016-11-16] MEDS ORDERED: BISACODYL 5 MG TAB PO PRN (23:00)
[2016-11-16] MEDS ORDERED: CALCIUM GLUCONATE 1,000 MG in D5W MINI-BAG PLUS 100 ML IV ONE (23:15)
[2016-11-16] MEDS ORDERED: GLUCAGON FOR INJ 1 MG VIAL (J1610) SC PRN (23:15)
[2016-11-16] MEDS ORDERED: GLUCOSE 4 GM CHEW TABLET PO PRN (23:15)
[2016-11-16] MEDS ORDERED: SOD POLYSTYRENE SULFONATE SUSP 15 GM/60 ML UD PO ONE (23:15)
[2016-11-16] MEDS ORDERED: FLUD1TA PO (23:30)
[2016-11-16] MEDS ORDERED: ASPI81TAEC PO (23:30)
[2016-11-16] MEDS ORDERED: COLA100C3 PO (23:30)
[2016-11-16] MEDS ORDERED: GABA-279 PO (23:30)
[2016-11-16] MEDS ORDERED: SUMA50TA2 PO (23:30)
[2016-11-16] MEDS ORDERED: TRIL135C6 PO (23:30)
[2016-11-16] MEDS ORDERED: MIRA33504 PO (23:30)
[2016-11-16] MEDS ORDERED: OMEP40CA2 PO (23:30)
[2016-11-16] MEDS ORDERED: TOUJ1.2I SC (23:30)
[2016-11-16] MEDS ORDERED: FLON1SPR (23:30)
[2016-11-16] MEDS ORDERED: LACT10SO29 PO (23:30)
[2016-11-16] MEDS ORDERED: ALPH1CAP PO (23:30)
[2016-11-16] MEDS ORDERED: QUES4POW PO (23:31)
[2016-11-16] MEDS ORDERED: NITROGLYCERIN 0.4 MG SUBL TABLET SL PRN (23:45)
[2016-11-16] MEDS ORDERED: MIRALAX *UNIT DOSE* 17GM PACKET PO PRN (23:45)
[2016-11-16] MEDS ORDERED: DOCUSATE SODIUM 100 MG CAP PO PRN (23:45)
[2016-11-17 00:30] VITALS: BP 141/85
[2016-11-17] MEDS ORDERED: MORPHINE 2 MG/ML 1ML SYRINGE IV PRN (00:30)
[2016-11-17] MEDS ORDERED: PERCOCET 5MG/325MG TAB PO ONE (00:30)
[2016-11-17] MEDS ORDERED: MORPHINE 4 MG/ML 1ML SYRINGE IV ONE (00:30)
[2016-11-17] MEDS ORDERED: MORPHINE 2 MG/ML 1ML SYRINGE IV ONE (00:45)
[2016-11-17] MEDS ORDERED: BACLOFEN 10 MG TAB PO PRN (00:45)
[2016-11-17] MEDS ORDERED: traMADol 50 MG TAB PO PRN (00:45)
[2016-11-17] MEDS ORDERED: FLUTICASONE PROP 0.05% NASAL SPRAY 16 GM (FLONASE) PRN (00:45)
[2016-11-17] MEDS ORDERED: SUMAtriptan SUCCINATE 25 MG TAB PO PRN (00:45)
[2016-11-17] MEDS ORDERED: ALBUTEROL 90 MCG/ACT 8GM HFA INHALER INH PRN (00:45)
[2016-11-17] MEDS: NS 1,000 ML IV SCH ×2 (00:46→06:05)
[2016-11-17] MEDS: HumaLOG INSULIN (NovoLOG) PER UNIT SC SCH ×5 (00:57→23:39)
[2016-11-17] MEDS: PANTOPRAZOLE 40MG INJ (PROTONIX) (C9113) IV SCH ×2 (00:58→21:24)
[2016-11-17] MEDS: PREGABALIN 75 MG CAP(LYRICA) PO SCH ×3 (01:00→21:23)
--- NOTE | 2016-11-17 01:00 | REPUSA ---
CLINICAL HISTORY: RUQ pain. TECHNIQUE: Realtime sonographic images were obtained in multiple projections. COMMENTS: The visualized liver is of uniform echo texture without evidence of mass or defect. There is no intra or extrahepatic biliary ductal dilatation. The common bile duct measures 5.6 mm. The gallbladder is physiologically distended without evidence of calculi. The gallbladder wall is not thickened measurin g 1.7 mm and there is no pericholecystic fluid. Limited evaluation of the pancreas secondary to gaseous bowel distention. Right nephrectomy. IMPRESSION: No evidence of cholelithiasis or cholecystitis. Thank you for your kind referral of this patient.
[2016-11-17] MEDS: AMITRIPTYLINE 50 MG TAB PO SCH ×2 (01:31→21:23)
[2016-11-17] MEDS: GABAPENTIN 100 MG CAP PO SCH ×4 (01:31→21:23)
[2016-11-17] MEDS: BETHANECHOL 25 MG TAB PO SCH ×4 (01:32→21:23)
--- NOTE | 2016-11-17 02:36 | HPE ---
DATE OF ADMISSION: 11/16/2016 PRIMARY CARE PROVIDER: TRIP Castellanos. UROLOGIST: Dr. Nicolas. INPATIENT HOSPITALIST ATTENDING: Wilfredo Thorpe MD. CHIEF COMPLAINT: Abdominal pain, not feeling well since . HISTORY OF PRESENTING ILLNESS: This is a 56-year-old female with prior history of type 2 diabetes, diabetic neuropathy, hypertension, dyslipidemia, chronic obstructive pulmonary disease (COPD), not oxygen dependent, chronic kidney disease stage III, urinary retention, right nephrectomy secondary to recurrent kidney stones and urinary tract infection (UTI), chronic back pain with lumbar spondylosis with neuropathy, follows with pain management, Raynaud's disease with gangrene in August 2016, osteopenia on DEXA scan in December 2008, anxiety, reflux, diverticulosis, left ankle fracture treated with a brace, echocardiogram 2010 with diastolic dysfunction, ejection fraction (EF) of 65% with trace mitral insufficiency, nephrostomy tube placement, right radical robotic-assisted nephrectomy with removal of right double-J stent in November 2013, ureteropelvic junction (UPJ) repair, presents to the emergency room with complaints of abdominal pain diffusely, particularly in bilateral lower quadrants, not feeling well since . Patient had episodes of significant constipation at home and had vomited last night prompting her to present to the emergency room. She complains of significant dysuria, urgency, frequency without chills, bilateral back pain as well. No hematuria. No foul-smelling urine, but states that she has had increasing frequency. She has had decrease in appetite with a bowel movement last with hard stools. No medications were taken for abdominal pain. There is no radiation of the pain. No prior history with gallstones. No colonoscopy in the past and no complaints of diarrhea. Patient denies any fever , chills. No chest pain, pressure, tightness, shortness of breath. No recent weight gain or weight loss. Hospitalist was called for admission for urinary tract infection on routine urinalysis done in the emergency room. CT abdomen and pelvis showed normal pancreas, gallbladder, liver and spleen. Left kidney is unremarkable. Right kidney is absent. Bowel is unremarkable with no obstructive or inflammatory changes. Lipase level was elevated at 1275 with normal bilirubin level. Patient had potassium of 5.5, but was receiving supplementation. Hospitalist service was called for admission for UTI, hyperkalemia and acute kidney injury most likely secondary to medications and decreased oral intake from persistent abdominal pain and vomiting. PAST MEDICAL HISTORY: Significant for: 1. Type 2 diabetes. 2. Diabetic neuropathy. 3. Hypertension. 4. Dyslipidemia. 5. COPD, not oxygen dependent. 6. Chronic kidney disease stage III with right radical nephrectomy, robotic assisted, November 2013. 7. Recurrent kidney stones. 8. UTI. 9. Chronic back pain with lumbar spondylosis with neuropathy. 10. Raynaud's disease with gangrene August 2016. 11. Osteopenia on DEXA scan December 2008. 12. Anxiety. 13. Reflux. 14. Diverticulosis. 15. Left ankle fracture treated with a brace. 16. Diastolic dysfunction, EF of 65% with trace mitral insufficiency on echocardiogram 2010. PAST SURGICAL HISTORY: 1. Tubal ligation. 2. Nephrostomy tube placement. 3. Right robotic-assisted radical nephrectomy due to recurrent kidney stones with removal of the right double-J stent 12/20/2013. 4. UPJ repair. HOME MEDICATIONS: - albuterol two puffs four times a day - alendronate 70 mg daily - amitriptyline 50 mg nightly - aspirin 81 mg daily - Baclofen 10 mg as needed for spasms - Flonase 50 mcg twice a day as needed for nasal congestion - gabapentin 100 mg twice a day - lisinopril 2.5 mg daily - omeprazole 40 mg daily - potassium chloride 20 mEq twice a day - Lyrica 150 mg twice a day - sumatriptan 50 mg as needed for migraines - tramadol 50 mg every 6 hours as needed for pain - lipoic acid 200 mg daily - MagOx 400 daily - tizanidine 2 mg twice a day - Toujeo 34 units subcutaneously daily - Trilipix 135 mg daily - Anoro Ellipta one inhaled daily SOCIAL HISTORY: Smokes tobacco, half a pack a day for more than 30 years. Attempted to quit 08/04/2016. No alcohol use. No drug use. Currently a FULL CODE. 6-8 caffeinated beverages. , lives with son, rents an apartment. [employer] grade education. FAMILY HISTORY: Father . Six brothers unknown medical problems. Five sisters unknown medical problems. Family history positive for diabetes. ALLERGIES: To CIPRO causing a rash. REVIEW OF SYSTEMS: Per history of present illness (HPI), 12-point system otherwise negative. PHYSICAL EXAMINATION: VITAL SIGNS: Temperature 98, pulse 70, respiratory rate 18, blood pressure 148/68, 97% on room air. GENERAL: Patient is awake, alert, oriented times three, answering questions appropriately. HEENT: Anicteric sclerae. No jaundice. Pupils are round and reactive to light and accommodation. Extraocular muscles are intact. Normocephalic, atraumatic. No use of respiratory accessory muscles. Tongue is midline. Speech is fluent. No facial asymmetry. Neck is supple, full range of motion. No cervical lymphadenopathy or thyromegaly. She is edentulous. Dry mucous membranes. No jugular venous distention. LUNGS: Clear to auscultation. No wheezing, rales or rhonchi. HEART: S1, S2, sinus rhythm. ABDOMEN: Soft, tender diffusely. No rebound, guarding. Positive bowel sounds times four quadrants. Negative costovertebral angle (CVA) tenderness. EXTREMITIES: No cyanosis, clubbing or pitting edema. LABORATORY DATA: White count 9.7, hemoglobin 13, hematocrit 39, platelet count 337, 66% neutrophils, 21% lymphocytes, 7% monocytes. Sodium 138, potassium 5.5, chloride 111, bicarbonate 19, BUN 40, creatinine 1.19 , glucose 123, lactic acid is pending, calcium 8.3, total bilirubin 0.2, direct bilirubin less than 0.1, AST 25, ALT 35, alkaline phosphatase 136, total protein 7.1, albumin 2.7, amylase 117, lipase 1275. Urinalysis turbid appearance, 3+ protein, 2+ glucose, negative nitrites, 3+ leukocyte esterase, too numerous to count WBCs, 3+ bacteria. Microbiology: Urine culture is pending. CT abdomen and pelvis 11/16/2016, shows no acute findings to explain the patient's pain, no obstructive or inflammatory bowel changes. Left kidney is unremarkable. Overall stable examination. The liver, spleen, pancreas, gallbladder, adrenal glands are remarkable. Left kidney is unremarkable. Right kidney is absent. The aorta is within normal limits. There is no evidence of abdominal lymphadenopathy or ascites. Bowel is unremarkable with no obstructive or inflammatory changes. Appendix is normal. Urinary bladder is within normal limits. Other pelvic structures appear grossly normal. No evidence of pelvic lymphadenopathy or ascites. No suspicious osseus abnormalities are seen. ASSESSMENT AND PLAN: This is a 56-year-old female with history of recurrent kidney stones with a robotic-assisted right radical nephrectomy, removal of right double-J stent 12/20/2013, type 2 diabetes with neuropathy, hypertension, dyslipidemia, chronic obstructive pulmonary disease (COPD) without oxygen dependency, chronic kidney disease (CKD) stage III, chronic back pain with lumbar spondylosis with neuropathy, Raynaud's disease with gangrene August 2016, osteopenia on DEXA scan December 2008, anxiety, reflux, diverticulosis, and left ankle fracture treated with a brace, diastolic dysfunction, ejection fraction (EF) 65% with trace mitral insufficiency on echocardiogram in 2010, status post tubal ligation, nephrostomy tube placement, previously smoked, tried to quit 08/04/2016, currently a FULL CODE, presents to the emergency room with complaints of diffuse abdominal pain, dysuria, urgency, frequency without fever or chills since , accompanied with one episode of nonbilious, non-projectile vomiting today and decreased oral intake due to severe abdominal pain. No medications were taken at home. She presents for further evaluation and was found to have a urinary tract infection. CT abdomen and pelvis showed no acute abnormalities. Lipase level was elevated. Hospitalist service was called for admission for evaluation of patient's abdominal pain and treatment for urinary tract infection. She was also found to be hyperkalemic with a potassium of 5.5, acute kidney injury with a creatinine of 1.19 with baseline creatinine of 1.08. Patient will be admitted as an inpatient for two midnights, assigned to Dr. Wilfredo Thorpe for the following acute issues. 1. Abdominal pain secondary to urinary tract infection. Patient has one absent kidney on the right secondary to recurrent kidney stones. No obstructive stone noted. She is at baseline creatinine. She will be treated with intravenous (IV ) ceftriaxone due to prior allergic reaction to ciprofloxacin causing a rash. Await urine culture and may discharge home once pain is controlled and vomiting subsides. No acute indication for urology services at this time; therefore, we will not consult them. Continue to monitor for worsening symptoms. There appears to be no acute abnormality found on CT scan of gallstones or inflammation in the colon; therefore, will continue to monitor for now. She has not had a prior cholecystectomy; therefore, with elevated lipase level, will check a right upper quadrant ultrasound to rule out gallstone disease causing possible pancreatitis. No imaging study convincing for inflammation of the pancreas. 2. Hyperkalemia secondary to potassium supplementation, which has been discontinued. Patient has been given Kayexalate, calcium gluconate, IV fluids with repeat level at 6 a.m. No complaints at this time. 3. Metabolic acidosis. Most likely secondary to vomiting. Patient will be given intravenous fluids with repeat basic metabolic panel at 6 a.m. 4. Chronic kidney disease stage III with history of robotic-assisted right radical nephrectomy due to recurrent kidney stones. Currently with a solitary kidney on the left. Avoid nephrotoxins. Renally dose all medications and monitor strict intake and output (I and O), daily weights and monitor for worsening metabolic acidosis and hyperkalemia with discontinuation of patient's potassium supplementation. No acute indication for bicarbonate drip at this time. Depends on whether the patient's bicarbonate worsens over the next 6 hours. 5. Type 2 diabetes. Continue with hyperglycemic protocol, sliding scale every 6 hours while the patient is nothing by mouth. Will hold off on long-acting insulin while the patient is nothing by mouth to prevent hypoglycemia. Advance diet once the patient's abdominal pain has resolved. 6. Hypertension. Stable, may resume home medications. 7. Deep venous thrombosis (DVT) prophylaxis with compression stockings and Lovenox renal dosing. 8. History of reflux. Continue on proton pump inhibitor (PPI). 9. Dyslipidemia. Check fasting lipid profile. Patient will be assigned to Dr. Wilfredo Thorpe in the morning. [facility]
[2016-11-17 06:00] VITALS: BP 110/59
[2016-11-17] MEDS: PERCOCET 5MG/325MG TAB PO PRN ×3 (06:12→21:24)
[2016-11-17 06:25] LABS: BASO # 0.1 K/mm3 (0.0-0.2); BASO % 0.9 % (0.0-1.0); EOS # 0.3 K/mm3 (0.0-0.50); LARGE UNSTAINED CELL # 0.2 K/mm3 (0.0-0.4); LARGE UNSTAINED CELL % 2.4 % (0.0-4.0); LYMPH # 2.6 K/mm3 (1.5-4.5); LYMPH % 29.4 % (24.0-44.0); MONO # 0.6 K/mm3 (0.0-0.8); MONO % 6.9 % (0.0-5.0); NEUTROPHILS # 5.1 K/mm3 (1.8-7.7); NEUTROPHILS % 57.4 % (36.0-66.0); PLATELET COUNT, AUTOMATED 337 k/mm3 (150-450); RED CELL DISTRIBUTION WIDTH 13.4 % (11.5-14.5); WHITE BLOOD COUNT 8.8 K/mm3 (4.0-10.0)
[2016-11-17 06:42] LABS: ALBUMIN 2.1 GM/DL (3.2-5.2); ALBUMIN/GLOBULIN RATIO 0.49 (1.00-1.93); BILIRUBIN,TOTAL 0.1 MG/DL (0.2-1.0); CALCIUM LEVEL 8.2 MG/DL (8.5-10.1); CREATININE FOR GFR 1.04 MG/DL (0.55-1.02); GLOMERULAR FILTRATION RATE 58.8 (>51); POTASSIUM SERUM 5.1 MEQ/L (3.5-5.1); TOTAL PROTEIN 6.4 GM/DL (6.4-8.2)
[2016-11-17 06:46] LABS: AMYLASE 85 U/L (25-115)
[2016-11-17] MEDS ORDERED: POTASSIUM CHLORIDE 10 MEQ SR TABLET PO SCH (09:00)
[2016-11-17] MEDS ORDERED: OMEPRAZOLE 20 MG CAP PO SCH (09:00)
[2016-11-17] MEDS ORDERED: SENOKOT S TAB PO SCH (09:00)
[2016-11-17] MEDS: cefTRIAXone SOD 2 GM in D5W MINI-BAG PLUS 50 ML IV SCH (10:01)
[2016-11-17] MEDS: ENOXAPARIN 30 MG/0.3 ML SYR (J1650) SC SCH (10:01)
[2016-11-17] MEDS: CHOLESTYRAMINE 4 GM PWD PKT PO SCH ×2 (10:02→21:23)
[2016-11-17] MEDS: buPROPion **XL** TABLET 150MG (WELLBUTRIN XL) PO SCH (10:02)
[2016-11-17] MEDS: FLUDROCORTISONE ACETATE 0.1 MG TAB PO SCH (10:03)
[2016-11-17] MEDS: NIFEdipine 10 MG CAP PO SCH (10:05)
[2016-11-17] MEDS: ASPIRIN 81 MG ENTERIC TAB PO SCH (10:05)
[2016-11-17] MEDS: LACTULOSE 20 GM/30 ML SYRUP UD PO SCH (10:05)
[2016-11-17] MEDS ORDERED: MOM 30ML SUSPENSION UDC PO PRN (12:45)
[2016-11-17] MEDS ORDERED: SENOKOT S TAB PO PRN (12:45)
[2016-11-17 14:00] VITALS: BP 107/58
[2016-11-17] MEDS: DEXTROSE 50% 50 ML SYRINGE IV PRN ×2 (18:13→18:35)
[2016-11-17] MEDS ORDERED: DEXTROSE 50% 50 ML SYRINGE IV STA (18:23)
[2016-11-17] MEDS: D5W/0.9% SODIUM CHLORIDE 1,000 ML IV SCH (18:37)
[2016-11-17 22:00] VITALS: BP 112/66
[2016-11-18] MEDS: DEXTROSE 50% 50 ML SYRINGE IV PRN (02:10)
[2016-11-18] MEDS: D5W/0.9% SODIUM CHLORIDE 1,000 ML IV SCH ×2 (03:56→15:35)
[2016-11-18] MEDS: PERCOCET 5MG/325MG TAB PO PRN ×4 (04:03→21:07)
[2016-11-18] MEDS: HumaLOG INSULIN (NovoLOG) PER UNIT SC SCH ×3 (05:58→17:05)
[2016-11-18 06:00] VITALS: BP 109/63
[2016-11-18 07:37] LABS: BASO % 0.6 % (0.0-1.0); EOS # 0.2 K/mm3 (0.0-0.50); EOS % 3.3 % (0.0-3.0); LARGE UNSTAINED CELL # 0.1 K/mm3 (0.0-0.4); LARGE UNSTAINED CELL % 1.8 % (0.0-4.0); LYMPH # 1.4 K/mm3 (1.5-4.5); LYMPH % 19.6 % (24.0-44.0); MEAN CORPUSCULAR HEMOGLOBIN 30.6 pg (27.0-33.0); MEAN CORPUSCULAR HGB CONC 33.1 g/dl (32.0-36.5); MEAN CORPUSCULAR VOLUME 92.2 fl (80.0-96.0); MONO # 0.5 K/mm3 (0.0-0.8); MONO % 7.4 % (0.0-5.0); NEUTROPHILS # 4.5 K/mm3 (1.8-7.7); NEUTROPHILS % 67.4 % (36.0-66.0); PLATELET COUNT, AUTOMATED 300 k/mm3 (150-450); RED CELL DISTRIBUTION WIDTH 13.7 % (11.5-14.5); WHITE BLOOD COUNT 6.6 K/mm3 (4.0-10.0)
[2016-11-18 07:41] LABS: ALBUMIN 2.1 GM/DL (3.2-5.2); ALBUMIN/GLOBULIN RATIO 0.51 (1.00-1.93); BILIRUBIN,TOTAL 0.1 MG/DL (0.2-1.0); CALCIUM LEVEL 7.9 MG/DL (8.5-10.1); CREATININE FOR GFR 1.04 MG/DL (0.55-1.02); GLOMERULAR FILTRATION RATE 58.8 (>51); POTASSIUM SERUM 4.6 MEQ/L (3.5-5.1); TOTAL PROTEIN 6.2 GM/DL (6.4-8.2)
[2016-11-18 08:00] VITALS: BP 109/65
[2016-11-18] MEDS: NIFEdipine 10 MG CAP PO SCH (09:32)
[2016-11-18] MEDS: buPROPion **XL** TABLET 150MG (WELLBUTRIN XL) PO SCH (09:32)
[2016-11-18] MEDS: LACTULOSE 20 GM/30 ML SYRUP UD PO SCH (09:32)
[2016-11-18] MEDS: PREGABALIN 75 MG CAP(LYRICA) PO SCH ×2 (09:32→21:06)
[2016-11-18] MEDS: BETHANECHOL 25 MG TAB PO SCH ×3 (09:32→21:07)
[2016-11-18] MEDS: ASPIRIN 81 MG ENTERIC TAB PO SCH (09:32)
[2016-11-18] MEDS: GABAPENTIN 100 MG CAP PO SCH ×3 (09:32→21:07)
[2016-11-18] MEDS: ENOXAPARIN 30 MG/0.3 ML SYR (J1650) SC SCH (09:33)
[2016-11-18] MEDS: CHOLESTYRAMINE 4 GM PWD PKT PO SCH ×2 (09:33→21:54)
[2016-11-18] MEDS: cefTRIAXone SOD 2 GM in D5W MINI-BAG PLUS 50 ML IV SCH (09:46)
[2016-11-18 16:00] VITALS: BP 154/75
--- NOTE | 2016-11-18 16:34 | IPN ---
DATE: 11/18/2016 56-year-old female seen at bedside resting comfortably. Feels that her abdominal pain is improved. She denies any nausea, vomiting and will try some clear liquids today. OBJECTIVE: Temperature is 98.7, pulse 70, respiratory rate 18, blood pressure 109/65, SpO2 is 98% on room air. GENERAL: The patient appears to be in no acute distress. Is alert, oriented. HEENT: Unremarkable. LUNGS: Clear. HEART: Regular rate and rhythm. ABDOMEN: Soft. Positive bowel sounds. No rebound. EXTREMITIES: No edema. No calf tenderness. LABORATORY DATA: White count is 6.6, hemoglobin 11.8, platelets are 300,000, sodium 143, potassium 4.6, chloride 116, bicarbonate is 19, anion gap 8, BUN 26, creatinine 1.04, glucose 73, calcium 7.9, total bilirubin 0.1, AST 13, ALT 21, alkaline phosphatase 89, albumin is 2.1, lipase 205. Gallbladder ultrasound did not demonstrate any signs of cholelithiasis or cholecystitis and CT abdomen and pelvis showed no findings of pancreatitis. No inflammatory bowel changes. The left kidney was unremarkable and overall exam was negative. ASSESSMENT/PLAN: 1. Abdominal pain likely secondary to urinary tract infection. She did have an elevated lipase with nausea, vomiting, that has all seemed to be improved. Will go ahead and advance her diet as tolerated. She does not show any underlying signs of acute pancreatitis or gallbladder related disease. No prior history of pancreatitis. Therefore I hesitate to call this a true acute pancreatitis, likely her symptomatology is related to underlying urinary tract infection and the lipase is most likely elevated due to gastrointestinal (GI) upset. 2. Hyperkalemia secondary to supplementation, which has been held. She does appear to be trending well. Will continue to follow. 3. Metabolic acidosis likely secondary to vomiting, this is resolved. 4. Chronic kidney disease (CKD) stage III, status post right radical nephrectomy. Avoid nephrotoxins. 5. Diabetes. Continue with fingersticks, sliding scale coverage as needed. 6. Hypertension. Stable on home medications. 7. Gastroesophageal reflux disease (GERD). Continue proton pump inhibitor (PPI). 8. Dyslipidemia. Continue to follow as outpatient. 9. Deep venous thrombosis (DVT) prophylaxis. Thromboembolism deterrents (TEDs) and sequentials. Lovenox has been renally dosed. DISPOSITION: Depending on how she does today she may be ready for home discharge in 24 hours. Her culture is positive for Escherichia (E) coli which is pansensitive. She is allergic to CIPRO, I am going to change her to oral Keflex. Will see how she does over the next 24 hours. If she remains afebrile, tolerating oral intake, we will discharge her tomorrow.
[2016-11-18] MEDS ORDERED: HumaLOG INSULIN (NovoLOG) PER UNIT SC SCH (21:00)
[2016-11-18] MEDS: PANTOPRAZOLE 40MG INJ (PROTONIX) (C9113) IV SCH (21:07)
[2016-11-18] MEDS: CEPHALEXIN 500 MG CAP PO SCH (21:07)
[2016-11-18] MEDS: AMITRIPTYLINE 50 MG TAB PO SCH (21:07)
[2016-11-18 22:00] VITALS: BP 168/90
[2016-11-18 22:35] VITALS: BP 172/88
[2016-11-18] MEDS ORDERED: LISINOPRIL 5 MG TAB PO ONE (22:47)
[2016-11-19 01:25] VITALS: BP 160/78
[2016-11-19] MEDS ORDERED: **hydrALAZINE** 10 MG TAB PO ONE (02:15)
[2016-11-19] MEDS: PERCOCET 5MG/325MG TAB PO PRN (02:39)
[2016-11-19 04:40] VITALS: BP 144/68
[2016-11-19 06:00] VITALS: BP 159/75
[2016-11-19 06:59] LABS: BASO # 0.1 K/mm3 (0.0-0.2); EOS # 0.2 K/mm3 (0.0-0.50); EOS % 4.2 % (0.0-3.0); LARGE UNSTAINED CELL # 0.1 K/mm3 (0.0-0.4); LARGE UNSTAINED CELL % 2.5 % (0.0-4.0); LYMPH # 1.7 K/mm3 (1.5-4.5); LYMPH % 28.8 % (24.0-44.0); MEAN CORPUSCULAR HEMOGLOBIN 30.6 pg (27.0-33.0); MEAN CORPUSCULAR HGB CONC 33.7 g/dl (32.0-36.5); MEAN CORPUSCULAR VOLUME 90.8 fl (80.0-96.0); MONO # 0.5 K/mm3 (0.0-0.8); MONO % 8.3 % (0.0-5.0); NEUTROPHILS # 3.2 K/mm3 (1.8-7.7); NEUTROPHILS % 55.2 % (36.0-66.0); PLATELET COUNT, AUTOMATED 306 k/mm3 (150-450); RED CELL DISTRIBUTION WIDTH 13.1 % (11.5-14.5); WHITE BLOOD COUNT 5.8 K/mm3 (4.0-10.0)
[2016-11-19] MEDS ORDERED: PERCOCET PO (07:09)
[2016-11-19] MEDS ORDERED: KEFL500C7 PO (07:11)
[2016-11-19] MEDS: HumaLOG INSULIN (NovoLOG) PER UNIT SC SCH (07:30)
[2016-11-19 07:36] LABS: ALBUMIN 2.4 GM/DL (3.2-5.2); ALBUMIN/GLOBULIN RATIO 0.67 (1.00-1.93); ALKALINE PHOSPHATASE 128 U/L (45-117); ALT/SGPT 27 U/L (12-78); AMYLASE 67 U/L (25-115); ANION GAP 5 MEQ/L (8-16); AST/SGOT 16 U/L (15-37); BILIRUBIN,TOTAL 0.1 MG/DL (0.2-1.0); BLOOD UREA NITROGEN 18 MG/DL (7-18); CALCIUM LEVEL 8.3 MG/DL (8.5-10.1); CARBON DIOXIDE LEVEL 24 MEQ/L (21-32); CHLORIDE LEVEL 111 MEQ/L (98-107); CREATININE FOR GFR 1.01 MG/DL (0.55-1.02); GLOMERULAR FILTRATION RATE > 60.0 (>51); GLUCOSE, FASTING 96 MG/DL (70-105); POTASSIUM SERUM 4.5 MEQ/L (3.5-5.1); SODIUM LEVEL 140 MEQ/L (136-145)
[2016-11-19] MEDS: LACTULOSE 20 GM/30 ML SYRUP UD PO SCH (08:22)
[2016-11-19] MEDS: buPROPion **XL** TABLET 150MG (WELLBUTRIN XL) PO SCH (08:22)
[2016-11-19 08:23] VITALS: BP 138/83
[2016-11-19] MEDS: PREGABALIN 75 MG CAP(LYRICA) PO SCH (08:23)
[2016-11-19] MEDS: BETHANECHOL 25 MG TAB PO SCH (08:23)
[2016-11-19] MEDS: CHOLESTYRAMINE 4 GM PWD PKT PO SCH ×2 (08:23→08:27)
[2016-11-19] MEDS: CEPHALEXIN 500 MG CAP PO SCH (08:23)
[2016-11-19] MEDS: NIFEdipine 10 MG CAP PO SCH (08:23)
[2016-11-19] MEDS: ASPIRIN 81 MG ENTERIC TAB PO SCH (08:23)
[2016-11-19] MEDS: FLUDROCORTISONE ACETATE 0.1 MG TAB PO SCH (08:23)
[2016-11-19] MEDS: ENOXAPARIN 30 MG/0.3 ML SYR (J1650) SC SCH (08:24)
[2016-11-19] MEDS: GABAPENTIN 100 MG CAP PO SCH (08:25)
[2016-11-19] MEDS ORDERED: LISINOPRIL 5 MG TAB PO SCH (09:00)
--- NOTE | 2016-11-19 14:51 | DSES ---
DATE OF ADMISSION: 11/16/2016 DATE OF DISCHARGE: 11/19/2016 PRIMARY CARE PROVIDER: Opal Peters UROLOGIST: Dr. Mcdonald CONSULTANTS: None. PROCEDURES: None. COMPLICATIONS: None. ADMISSION/DISCHARGE DIAGNOSES: 1. Abdominal pain 2. Urinary tract infection. 3. Elevated lipase 4. Diabetes. 5. Diabetic neuropathy. 6. Hypertension. 7. Dyslipidemia. 8. Chronic obstructive pulmonary disease (COPD), not oxygen dependent. 9. Chronic kidney disease stage III with right radical nephrectomy, robotic assisted. 10. Recurrent kidney stones. 11. Recurrent urinary tract infections. 12. Chronic back pain with lumbar spondylosis and neuropathy. 13. Raynaud's. 14. Osteopenia. 15. Anxiety. 16. Gastroesophageal reflux disease (GERD). 17. History of diverticulosis. 18. Left ankle fracture treated with a brace. 19. Congestive heart failure (CHF) with a diastolic dysfunction and ejection fraction (EF) of 65% on echocardiogram in 2010. BRIEF HOSPITAL COURSE: Ms. Cabrrea is a pleasant 56-year-old female who presented to the emergency department with abdominal pain, not feeling well, nausea, vomiting for 3-4 days prior to coming to the emergency department. Her workup did demonstrate that she had some diffusely tender areas in her abdomen, normoactive bowel sounds, no rebound, no costovertebral angle (CVA) tenderness. LABORATORY DATA: She had a urinalysis with 3+ leukocyte esterase, too numerous to count WBCs. Her white count was normal at 9.7. Her electrolytes were unremarkable. However, her lipase was elevated at 1275. CT of the abdomen and pelvis: No acute findings were described. Appendix was normal. No signs of bowel obstruction. Urinary bladder was within normal limits. She was ultimately admitted for urinary tract infection. She was made nothing by mouth given intravenous (IV) fluids. She did respond favorably. Her abdominal pain did seem to improve. On the morning of discharge, she was able tolerate a regular diet and did appear to be doing much better and appropriate for discharge. For further information regarding intake, physical laboratories, diagnostics, please refer the history and physical (H and P) by Braulio on 11/16/2016. PHYSICAL EXAMINATION: Temperature 97.4, pulse 72 and regular, respiratory rate 18, blood pressure (BP) 138/83, SpO2 is 98% on room air. General: The patient appears to be in no acute distress. Is alert, oriented. HEENT: Unremarkable. Lungs: Clear. Heart: Regular rate and rhythm. Abdomen: Soft. Extremities: No edema. No calf tenderness. LABORATORY DATA: White count is 5.8, hemoglobin 12.0, platelets are 306. Sodium 140, potassium 4.5, chloride 111, bicarbonate 24, anion gap 5, BUN is 18, creatinine 1.01, glucose is 96, lipase is 250. DISCHARGE CONDITION: Is good. DISPOSITION: Discharge to home. DISCHARGE MEDICATIONS: - Keflex 500 mg twice a day - Percocet 5/325 one tablet every 4 hours as needed #14 with no refills, maximum daily dose is six - Ventolin inhaler as directed - Flomax 70 mg weekly - amitriptyline 50 mg nightly - Anoro Ellipta one inhalation daily - aspirin 81 mg daily - baclofen 10 mg twice a day as needed spasms - bethanechol 50 mg 1/2 tablet three times a day - bupropion XL 300 mg daily - Questran 4 grams twice a day - Colace 100 mg three times a day as needed constipation - Flonase nasal spray as directed twice a day - fludrocortisone 0.1 mg three times weekly - gabapentin 100 mg three times a day - lactulose 15 mL daily - lipoic acid 200 mg daily - lisinopril 2.5 mg daily - magnesium 400 mg daily - nifedipine 10 mg daily - sublingual nitroglycerin 0.4 mg every 5 minutes as needed chest pain - omeprazole 40 mg daily - MiraLAX 17 grams daily as needed - potassium chloride 20 mEq twice a day - Lyrica 150 mg twice a day - sumatriptan 50 mg as directed for migraines - Tizanidine 2 mg three times a day - Toujeo SoloStar 34 units subcutaneous daily - tramadol 50 mg every 6 hours as needed - trilipix 135 mg daily DISCHARGE INSTRUCTIONS: Discharge to home. Activity as tolerated. Followup with family doctor within the next week. She should followup with pain management in the next week or so. She did describe having some new skin lesions in her scalp. These do not appear to be acutely infected, and she is encouraged to see her primary care provider. She will likely need a dermatology referral for further investigation. Otherwise, she appears to be stable today. She is tolerating her meal. She can return home. Activity as tolerated. Regular diet. Seek medical attention is symptoms should worsen or progress. She voices understanding. The discharge took approximately 35 minutes.
== END 2016-11-19 10:00 | disposition home or self-care (01) | DRG 463 ==
LOC: M ED 21:11 → M ED INP 22:57 → M MS4PR 11-17 00:30
PROVIDERS: ADMIT General Practice; ATTEND Internal Medicine
DX: N39.0 Urinary tract infection, site not specified (principal); I13.0 Hypertensive heart and chronic kidney disease with heart failure and stage 1 through stage 4 chronic kidney disease, or unspecified chronic kidney disease; E87.2 Acidosis; I50.30 Unspecified diastolic (congestive) heart failure; E11.40 Type 2 diabetes mellitus with diabetic neuropathy, unspecified; E87.5 Hyperkalemia; J44.9 Chronic obstructive pulmonary disease, unspecified; N18.3 Chronic kidney disease, stage 3 (moderate); B96.20 Unspecified Escherichia coli [E. coli] as the cause of diseases classified elsewhere; R33.9 Retention of urine, unspecified; E78.5 Hyperlipidemia, unspecified; M85.80 Other specified disorders of bone density and structure, unspecified site; F17.210 Nicotine dependence, cigarettes, uncomplicated; K21.9 Gastro-esophageal reflux disease without esophagitis; F41.9 Anxiety disorder, unspecified; M47.896 Other spondylosis, lumbar region; Z79.82 Long term (current) use of aspirin; Z87.442 Personal history of urinary calculi; Z87.440 Personal history of urinary (tract) infections; Z90.5 Acquired absence of kidney; Z79.899 Other long term (current) drug therapy; Z98.51 Tubal ligation status; Z83.3 Family history of diabetes mellitus; Z88.1 Allergy status to other antibiotic agents

== ENCOUNTER → 2016-11-25 | Outpatient (CLI) | payer OTHER ==
[~2016-11-25] MED LIST changes: +ALPH1CAP PO; +ASPI81TAEC PO; +BETH50TA2 PO; +FLON1SPR; +KEFL500C7 PO; +LISI2.5T3 PO; +MAGN1TAB25 PO; +MIRA33504 PO; +NIFE10CA2 PO; +QUES4POW PO; +TIZA2CAP3 PO; +TOUJ1.2I SC
--- NOTE | 2016-12-14 23:40 | ECWPNPC ---
PATIENT NAME: JULIO ONEILL : 1960 GENDER: FEMALE VISIT DATE: 11/25/2016 DISCHARGE DATE: 11/25/16 0951 VISIT LOCKED DATE TIME: PHYSICIAN: SEEMA KIRAN RESOURCE: SEEMA KIRAN REASON FOR APPOINTMENT 1. BACK HISTORY OF PRESENT ILLNESS HISTORY OF PRESENT ILLNESS: PAIN THE PATIENT DESCRIBES THE PAIN... FALL RISK SCREENING: SCREENING :NO FALLS IN THE PAST YEAR TODAY'S VISIT: NOTES: WAS RECENTLY IN HOSPITAL FOR UTI. STATES SHE WAS RECENTLY IN [place] AND LEFT HER NOVALOG THERE. STATES BLOOD SUGARS REMAIN UNDER CONTROL. STATES SHE IS TAKING HER ANTIBIOTIC. STATES SHE IS TAKING HER BLOOD SUGARS EVERY DAY. . CURRENT MEDICATIONS TAKING COLACE 100 MG CAPSULE 1 CAPSULE NEEDED ORALLY THREE TIMES DAILY NEEDED TAKING MIRALAX - PACKET 1 PACKET MIXED WITH 8 OUNCES OF FLUID ORALLY ONCE A DAY TAKING IMITREX 50 MG TABLET 1 TABLET NEEDED ORALLY TWICE A DAY TAKING GABAPENTIN 100 MG CAPSULE 1 CAP ORALLY TID TAKING VITAMIN B-12 1000 MCG TABLET 1 TABLET ORALLY ONCE A DAY TAKING VITAMIN D 69808 UNIT CAPSULE 1 CAPSULE ORALLY WEEKLY TAKING METHOCARBAMOL 500 MG TABLET 1 TAB ORALLY Q 8 HRS NEEDED TAKING LACTULOSE 10 GM/15ML SOLUTION 15 ML ORALLY ONCE A DAY TAKING MAGNESIUM OXIDE 400 MG TABLET 1 TABLET NEEDED ORALLY ONCE A DAY TAKING QUESTRAN 4 GM PACKET 1 PACKET MIXED WITH WATER OR NON-CARBONATED DRINK ORALLY TWICE A DAY TAKING AMITRIPTYLINE HCL 50 MG TABLET 1 TABLET AT BEDTIME ORALLY ONCE A DAY TAKING NITROGLYCERIN 0.4 MG TABLET SUBLINGUAL 1 TABLET UNDER THE TONGUE SUBLINGUAL DIRECTED TAKING FOSAMAX 70 MG TABLET 1 TABLET ORALLY WEEKLY TAKING BUPROPION HCL ER (XL) 300 MG TABLET EXTENDED RELEASE 24 HOUR 1 TABLET IN THE MORNING ORALLY ONCE A DAY TAKING OMEPRAZOLE 40 MG CAPSULE DELAYED RELEASE 1 CAPSULE ORALLY ONCE A DAY TAKING TRILIPIX 135 MG CAPSULE DELAYED RELEASE 1 CAPSULE ORALLY ONCE A DAY TAKING KLOR-CON 20 MEQ TABLET 2 TABLETS WITH FOOD ORALLY TWICE DAILY TAKING FLUTICASONE PROPIONATE 50 MCG/ACT SUSPENSION 1 SPRAY IN EACH NOSTRIL NASALLY ONCE A DAY TAKING LYRICA 150 MG CAPSULE 1 CAPSULE ORALLY TAKE 1 CAP BID MDD=2 TAKING TRAMADOL HCL 50 MG TABLET 1-2 TABLET ORALLY EVERY 6 HRS PRN PAIN MDD=4 TAKING ALPHA LIPOIC ACID 200 MG CAPSULE ORALLY DAILY TAKING ASPIR-81 81 MG TABLET DELAYED RELEASE 1 TABLET ORALLY ONCE A DAY TAKING ONE TOUCH DELICA 33 GAUGE DIRECTED SUBCUTANEOUSLY DX:E11.9 BID AND PRN FOR SYMPTOMS MDD6 TAKING ONE TOUCH ULTRA TEST STRIPS STRIPS 1 STRIP DX:E11.9 BID AND PRN FOR SYMPTOMS MDD6 TAKING GLUCOMETER DIRECTED DX:E11.9 BID AND PRN FOR SYMPTOMS TAKING VENTOLIN HFA 108 (90 BASE) MCG/ACT AEROSOL SOLUTION 2 PUFFS INHALATION QID PRN TAKING BACLOFEN 10 MG TABLET 1 TABLET WITH FOOD OR MILK ORALLY TWICE DAILY NEEDED FOR SPASMS TAKING TOUJEO SOLOSTAR 300 UNIT/ML SOLUTION PEN-INJECTOR 64 UNITS SUBCUTANEOUS DAILY TAKING PEN NEEDLES 31G X 8 MM MISCELLANEOUS 1 WITH TOUJEO SUBCUTANEOUSLY DAILY - ICD10 - E11.21 TAKING DEPEND ADJUSTABLE UNDERWEAR LG - MISCELLANEOUS 1 ICD10 - E11.21 NEEDED TAKING [employer] PROTECTIVE UNDERWEAR LGE - MISCELLANEOUS DIRECTED 44-58 RX:N39.3 TAKING LISINOPRIL 2.5 MG TABLET 1 TABLET ORALLY ONCE A DAY TAKING NOVOLOG FLEXPEN 100 UNIT/ML SOLUTION PEN-INJECTOR SS SUBCUTANEOUS THREE TIMES DAILY TAKING NIFEDIPINE 10 MG CAPSULE 1 CAPSULE ORALLY DAILY TAKING TIZANIDINE HCL 2 MG TABLET 1 TABLET ORALLY THREE TIMES A DAY TAKING PERCOCET 5-325 MG TABLET 1 TABLET NEEDED ORALLY EVERY 6 HRS NOT-TAKING OXYCODONE-ACETAMINOPHEN 5-325 MG TABLET 1 TABLET NEEDED ORALLY EVERY 6 HRS, NOTES: TAKING ONCE A DAY-FROM ER UNKNOWN FLUDROCORTISONE ACETATE 0.1 MG TABLET 1 TABLET ORALLY THREE TIMES A WEEK UNKNOWN SUMATRIPTAN SUCCINATE 50 MG TABLET 1 TABLET NEEDED ORALLY TWICE A DAY UNKNOWN URECHOLINE 25 MG TABLET 1 TABLET ON AN EMPTY STOMACH ORALLY THREE TIMES A DAY UNKNOWN ANORO ELLIPTA UMECLIDINIUM 62.5 MCG AND VILANTEROL 25 MCG INHALATION POWDER 1 INHALATION ORAL ONCE DAILY MEDICATION LIST REVIEWED AND RECONCILED WITH THE PATIENT PAST MEDICAL HISTORY DM II- DIAGNOSED ABOUT [address] [facility] 2ND TO DM HTN ANXIETY/DEPRESSION ASTHMA/COPD PFTS, [facility], 03/08/2015. NONSPECIFIC AIRFLOW REDUCTION, MILD AIR TRAPPING AND MODERATE DIFFUSION IMPAIRMENT. SOME IMPROVEMENT NOTED FOLLOWING BRONCHO-DILATOR ADMINISTRATION DIVERTICULOSIS GERD OSTEOPENIA DEXA 01/04 KIDNEY STONES ATROPHIC KIDNEY (REMOVED) MIGRAINE HEADACHES DIZZINESS HEART MURMUR; DX 2000 (HOLISTIC) ECHOARDIOGRAM08/05/10 ALTERED DIASTOLIC COMPLIANCE EF 65& STRESS NUCLEAR REGADENOSON08/07/10 NORMAL STUDY, NORMAL LV FUNCTION EF72% 03/21/2016, ECHOCARDIOGRAM [facility] [place] [facility], NO SIGNIFICANT VALVULAR DISEASE, TRACE MITRAL INSUFFICIENCY, LEFT VENTRICULAR SYSTOLIC FUNCTION NORMAL, LEFT VENTRICULAR DIASTOLIC FUNCTION SHOWS ABNORMAL RELAXATION NO INTRACARDIAC MASSES OR VEGETATIONS OR PERICARDIAL EFFUSION. LEFT ANKLE FX-TX'D WITH BRACE ALLERGIES CIPRO: RASH: ALLERGY REVIEW OF SYSTEMS CONSTITUTIONAL: ANY CHANGE IN YOUR MEDICAL CONDITION? NO . CHILLS NO . FEVER NO . INFECTION: DO YOU HAVE NEW INFECTIONS? NO . DO YOU HAVE HISTORY OF MRSA? NO . MUSCULOSKELETAL: ANY NEW PATTERNS OF PAIN OR NUMBNESS? NO . GASTROENTEROLOGY: ANY NEW CHANGE IN BOWEL CONTROL? NO . GENITOURINARY: ANY NEW CHANGE IN BLADDER CONTROL? NO . IS THERE A CHANCE YOU COULD BE ? NO . HEMATOLOGY/LYMPH: DO YOU TAKE ANY BLOOD THINNERS? (FOR EXAMPLE- COUMADIN, PLAVIX, AGGRENOX, PLATEL, PRADAXA, OR XARELTO) NO . WHEN WAS YOUR LAST DOSE? DATE: TIME: . NEUROLOGY: HAVE YOU FALLEN IN THE PAST 6 MONTHS? NO . ANY NEW EXTREMITY NUMBNESS OR WEAKNESS? NO . CARDIOLOGY: DO YOU HAVE A PACEMAKER OR DEFIBRILLATOR? NO . RESPIRATORY: HAVE YOU BEEN SICK IN THE PAST WEEK? NO . FEVER NO . FLU LIKE SYMPTOMS? NO . COUGH NO . INTEGUMENTARY: DO YOU HAVE ANY RASHES OR OPEN SORES? NO . ALLERGIC/IMMUNO: ARE YOU ALLERGIC TO SHELLFISH OR IV DYE? NO . ANY NEW ALLERGIES? NO . PSYCHIATRIC: DO YOU HAVE THOUGHTS OF HURTING YOURSELF OR SOMEONE ELSE? NO . ARE YOU ABUSED, NEGLECTED, OR IN AN UNSAFE ENVIRONMENT? NO . ENDOCRINOLOGY: ARE YOU DIABETIC? YES - DOES NOT HAVE GOOD CONTROL . OTHER: DO YOU NEED ANY PRESCRIPTIONS? NO . IF YES, PLEASE LIST: ____ . ANY NEW PROBLEMS WITH YOUR MEDICATIONS? NO . WHEN DID YOU LAST EAT? ____ . WHEN DID YOU LAST DRINK? ____ . WHAT DID YOU LAST DRINK? ____ . NAME OF PERSON DRIVING YOU HOME? ____ . DO YOU HAVE ANY OTHER QUESTIONS OR CONCERNS NO . REVIEWED BY: PROVIDER: SEEMA ARAGON . VITAL SIGNS WT 167.6 LBS, HT 62.5", BMI 30.16 INDEX, BP 130/64 MM HG, HR 88 /MIN, RR 18 /MIN, TEMP 97.8 F, OXYGEN SAT % 94%, NA INITIALS TL 0855, REVIEWED BY: AD. EXAMINATION GENERAL EXAMINATION: GENERAL APPEARANCE:GOOD COLOR. PSYCHALERT , ORIENTED X 3, ANXOIUS. LUNGS:CLEAR TO AUSCULTATION BILATERALLY. HEART:HEART RATE REGULAR, NO MURMURS. MUSCULOSKELETAL:HYPERSENSITIVITY TO LIGHT TOUCH OVER LUMBAR REGION. VERY POOR BALANCE. USIES WALKER. EXTREMITIES:WALKING CAST IN PLACE LEFT FOOT. SKIN:FINGER TIPS BOTH HANDS WELL HEALED, HANDS WARM.ECCYMOTIC AREAS NOTED BILATERAL FOREARMS.. NEUROLOGIC EXAM:MARKED DECREASE IN SENSATION IN STOCKING/GLOVE FASHIN OVER BILATERAL LOWER EXTREMITIES TO LEVEL OF KNEE, AND UPPER EXTREMITIES TO MID FOREARM. ASSESSMENTS LUMBAR SPONDYLOSIS - M47.816 (PRIMARY) NEUROPATHY - G62.9 CHRONIC USE OF OPIATE FOR THERAPEUTIC PURPOSE - Z79.891 TREATMENT LUMBAR SPONDYLOSIS REFILL GABAPENTIN CAPSULE, 100 MG, 1 CAP, ORALLY, TID, 30 DAY(S), 90 CAPSULE, REFILLS 1 NOTES: UTOX TODAY. MUST BRING MEDS TO ALL APPOINTMENTS. NO MEDS - WILL BE SENT HOME. OTHERS REFILL PERCOCET TABLET, 5-325 MG, 1 TABLET NEEDED, ORALLY, EVERY 8 - 12 HRS PRN PAIN MDD=2, 15 DAYS, 30, REFILLS 0 PROCEDURE CODES FA211 ESTABILISHED PATIENT [facility] CHARGE DISPOSITION & COMMUNICATION FOLLOW UP 12-14 DAYS ELECTRONICALLY SIGNED BY ASH MYLES ON 12/14/2016 AT 02:35 PM EDT DISCLAIMER : THIS IS A VISIT SUMMARY EXTRACTED FROM THE [employer] CHART. IT IS NOT A COPY OF THE [employer] PROGRESS NOTE. MTDD
== END ==
LOC: M PAIN 08:40
PROVIDERS: ATTEND Nurse Practitioner Family
DX: M47.816 Spondylosis without myelopathy or radiculopathy, lumbar region (principal); G62.9 Polyneuropathy, unspecified; Z79.891 Long term (current) use of opiate analgesic; Z79.82 Long term (current) use of aspirin; Z79.899 Other long term (current) drug therapy; Z79.2 Long term (current) use of antibiotics; Z79.4 Long term (current) use of insulin; Z88.1 Allergy status to other antibiotic agents; E11.65 Type 2 diabetes mellitus with hyperglycemia; J44.9 Chronic obstructive pulmonary disease, unspecified; K21.9 Gastro-esophageal reflux disease without esophagitis; E55.9 Vitamin D deficiency, unspecified; F41.9 Anxiety disorder, unspecified; Z90.5 Acquired absence of kidney; M85.80 Other specified disorders of bone density and structure, unspecified site; E87.6 Hypokalemia; G25.0 Essential tremor; I73.00 Raynaud's syndrome without gangrene; G43.009 Migraine without aura, not intractable, without status migrainosus

== ENCOUNTER → 2016-12-09 | Outpatient (CLI) | payer OTHER ==
[~2016-12-09] MED LIST changes: -ALPH1CAP PO; +ALPH200C2 PO; -ASPI81TA13 PO; +ASPI81TA24 PO; +ATOR1TAB21 PO; -ATOR40TA PO; +ATOR40TA75 PO; -AUGM875T27 PO; +AUGM875T28 PO; -BACITAB3 PO; +CIPR-249 PO; -CIPR500T89 PO; +CITRSOL8 PO; -COLA100C3 PO; +COLA100C5 PO; +FERR1TAB8 PO; +FLUD0.1T PO; -FLUD1TA PO; +GLUC1CHW11 PO; -IBUP200C PO; +IBUP200C10 PO; +KEFL500C17 PO; -KEFL500C7 PO; -LIDO5DIS36 TD; +LIDO5DIS41 TD; +MACR100C43 PO; -METH-107 PO; +METH1TAB40 PO; +OXYC1TAB23 PO; -RISP0.5T16 PO; +RISP0.5T21 PO; -RISP3TAB18 PO; +RISP3TAB20 PO; +SENN1TAB10 PO; -SENN8.6T10 PO; -SENO8.6T2 PO; +SENO8.6T5 PO; -[UNRECOGNIZED DRUG - CODE] PO
--- NOTE | 2016-12-27 00:14 | ECWPNPC ---
PATIENT NAME: JULIO ONEILL : 1960 GENDER: FEMALE VISIT DATE: 12/09/2016 DISCHARGE DATE: 12/09/16 0957 VISIT LOCKED DATE TIME: PHYSICIAN: SEEMA KIRAN RESOURCE: SEEMA KIRAN REASON FOR APPOINTMENT 1. BACK HISTORY OF PRESENT ILLNESS HISTORY OF PRESENT ILLNESS: PAIN THE PATIENT DESCRIBES THE PAIN... FALL RISK SCREENING: SCREENING :NO FALLS IN THE PAST YEAR TODAY'S VISIT: NOTES: STATES HAS LOST PAIN MEDS AND SEVERAL OTHERS. HAS NOT BEEN ABLE TO FIND PERCOCET SINCE THURSDAY. NOTES IS HAVING INTENSE PAIN ACROSS LOW BACK AND INTO LEGS. LEGS ARE BURNING AND THROBBING. HAS FALLEN SEVERAL TIMES. IS ASKING FOR MORE PAIN MEDS. . CURRENT MEDICATIONS TAKING COLACE 100 MG CAPSULE 1 CAPSULE NEEDED ORALLY THREE TIMES DAILY NEEDED TAKING MIRALAX - PACKET 1 PACKET MIXED WITH 8 OUNCES OF FLUID ORALLY ONCE A DAY TAKING VITAMIN B-12 1000 MCG TABLET 1 TABLET ORALLY ONCE A DAY TAKING VITAMIN D 45400 UNIT CAPSULE 1 CAPSULE ORALLY WEEKLY TAKING MAGNESIUM OXIDE 400 MG TABLET 1 TABLET NEEDED ORALLY ONCE A DAY TAKING AMITRIPTYLINE HCL 50 MG TABLET 1 TABLET AT BEDTIME ORALLY ONCE A DAY TAKING NITROGLYCERIN 0.4 MG TABLET SUBLINGUAL 1 TABLET UNDER THE TONGUE SUBLINGUAL DIRECTED TAKING FOSAMAX 70 MG TABLET 1 TABLET ORALLY WEEKLY TAKING BUPROPION HCL ER (XL) 300 MG TABLET EXTENDED RELEASE 24 HOUR 1 TABLET IN THE MORNING ORALLY ONCE A DAY TAKING KLOR-CON 20 MEQ TABLET 2 TABLETS WITH FOOD ORALLY TWICE DAILY TAKING FLUTICASONE PROPIONATE 50 MCG/ACT SUSPENSION 1 SPRAY IN EACH NOSTRIL NASALLY ONCE A DAY TAKING LYRICA 200 MG CAPSULE 1 CAPSULE ORALLY TAKE 1 CAP BID MDD=2 TAKING TRAMADOL HCL 50 MG TABLET 1-2 TABLET ORALLY EVERY 6 HRS PRN PAIN MDD=4 TAKING ASPIR-81 81 MG TABLET DELAYED RELEASE 1 TABLET ORALLY ONCE A DAY TAKING ONE TOUCH DELICA 33 GAUGE DIRECTED SUBCUTANEOUSLY DX:E11.9 BID AND PRN FOR SYMPTOMS MDD6 TAKING ONE TOUCH ULTRA TEST STRIPS STRIPS 1 STRIP DX:E11.9 BID AND PRN FOR SYMPTOMS MDD6 TAKING GLUCOMETER DIRECTED DX:E11.9 BID AND PRN FOR SYMPTOMS TAKING VENTOLIN HFA 108 (90 BASE) MCG/ACT AEROSOL SOLUTION 2 PUFFS INHALATION QID PRN TAKING BACLOFEN 10 MG TABLET 1 TABLET WITH FOOD OR MILK ORALLY TWICE DAILY NEEDED FOR SPASMS TAKING TOUJEO SOLOSTAR 300 UNIT/ML SOLUTION PEN-INJECTOR 34 UNITS SUBCUTANEOUS DAILY, NOTES: PER DR. DAO NOTE11/21/16 TAKING PEN NEEDLES 31G X 8 MM MISCELLANEOUS 1 WITH TOUJEO SUBCUTANEOUSLY DAILY - ICD10 - E11.21 TAKING DEPEND ADJUSTABLE UNDERWEAR LG - MISCELLANEOUS 1 ICD10 - E11.21 NEEDED TAKING [employer] PROTECTIVE UNDERWEAR LGE - MISCELLANEOUS DIRECTED 44-58 RX:N39.3 TAKING LISINOPRIL 2.5 MG TABLET 1 TABLET ORALLY ONCE A DAY TAKING NOVOLOG FLEXPEN 100 UNIT/ML SOLUTION PEN-INJECTOR SS SUBCUTANEOUS THREE TIMES DAILY TAKING TIZANIDINE HCL 2 MG TABLET 1 TABLET ORALLY THREE TIMES A DAY TAKING PERCOCET 5-325 MG TABLET 1 TABLET NEEDED ORALLY EVERY 8 - 12 HRS PRN PAIN MDD=2 TAKING GABAPENTIN 100 MG CAPSULE 1 CAP ORALLY TID TAKING BETHANECHOL CHLORIDE 25 MG TABLET 1 TABLET ORALLY THREE TIMES A DAY TAKING ANORO ELLIPTA 62.5-25 MCG/INH AEROSOL POWDER BREATH ACTIVATED 1 PUFF INHALATION ONCE A DAY NOT-TAKING METHOCARBAMOL 500 MG TABLET 1 TAB ORALLY Q 8 HRS NEEDED NOT-TAKING OMEPRAZOLE 40 MG CAPSULE DELAYED RELEASE 1 CAPSULE ORALLY ONCE A DAY NOT-TAKING OXYCODONE-ACETAMINOPHEN 5-325 MG TABLET 1 TABLET NEEDED ORALLY EVERY 6 HRS, NOTES: TAKING ONCE A DAY-FROM ER UNKNOWN FLUDROCORTISONE ACETATE 0.1 MG TABLET 1 TABLET ORALLY THREE TIMES A WEEK UNKNOWN SUMATRIPTAN SUCCINATE 50 MG TABLET 1 TABLET NEEDED ORALLY TWICE A DAY UNKNOWN URECHOLINE 25 MG TABLET 1 TABLET ON AN EMPTY STOMACH ORALLY THREE TIMES A DAY MEDICATION LIST REVIEWED AND RECONCILED WITH THE PATIENT PAST MEDICAL HISTORY DM II- DIAGNOSED ABOUT [address] [facility] 2ND TO DM HTN ANXIETY/DEPRESSION ASTHMA/COPD PFTS, [facility], 03/08/2015. NONSPECIFIC AIRFLOW REDUCTION, MILD AIR TRAPPING AND MODERATE DIFFUSION IMPAIRMENT. SOME IMPROVEMENT NOTED FOLLOWING BRONCHO-DILATOR ADMINISTRATION DIVERTICULOSIS GERD OSTEOPENIA DEXA 01/04 KIDNEY STONES ATROPHIC KIDNEY (REMOVED) MIGRAINE HEADACHES DIZZINESS HEART MURMUR; DX 2000 (HOLISTIC) ECHOARDIOGRAM08/05/10 ALTERED DIASTOLIC COMPLIANCE EF 65& STRESS NUCLEAR REGADENOSON08/07/10 NORMAL STUDY, NORMAL LV FUNCTION EF72% 03/21/2016, ECHOCARDIOGRAM [facility], NO SIGNIFICANT VALVULAR DISEASE, TRACE MITRAL INSUFFICIENCY, LEFT VENTRICULAR SYSTOLIC FUNCTION NORMAL, LEFT VENTRICULAR DIASTOLIC FUNCTION SHOWS ABNORMAL RELAXATION NO INTRACARDIAC MASSES OR VEGETATIONS OR PERICARDIAL EFFUSION. LEFT ANKLE FX-TX'D WITH BRACE ALLERGIES CIPRO: RASH: ALLERGY REVIEW OF SYSTEMS REVIEWED BY: PROVIDER: SEEMA ARAGON . CONSTITUTIONAL: ANY CHANGE IN YOUR MEDICAL CONDITION? NO . CHILLS NO . FEVER NO . INFECTION: DO YOU HAVE NEW INFECTIONS? NO . DO YOU HAVE HISTORY OF MRSA? NO . MUSCULOSKELETAL: ANY NEW PATTERNS OF PAIN OR NUMBNESS? NO . GASTROENTEROLOGY: ANY NEW CHANGE IN BOWEL CONTROL? NO . GENITOURINARY: ANY NEW CHANGE IN BLADDER CONTROL? NO . IS THERE A CHANCE YOU COULD BE ? NO . HEMATOLOGY/LYMPH: DO YOU TAKE ANY BLOOD THINNERS? (FOR EXAMPLE- COUMADIN, PLAVIX, AGGRENOX, PLATEL, PRADAXA, OR XARELTO) NO . WHEN WAS YOUR LAST DOSE? DATE: TIME: . NEUROLOGY: HAVE YOU FALLEN IN THE PAST 6 MONTHS? NO . ANY NEW EXTREMITY NUMBNESS OR WEAKNESS? NO . CARDIOLOGY: DO YOU HAVE A PACEMAKER OR DEFIBRILLATOR? NO . RESPIRATORY: HAVE YOU BEEN SICK IN THE PAST WEEK? NO . FEVER NO . FLU LIKE SYMPTOMS? NO . COUGH NO . INTEGUMENTARY: DO YOU HAVE ANY RASHES OR OPEN SORES? NO . ALLERGIC/IMMUNO: ARE YOU ALLERGIC TO SHELLFISH OR IV DYE? NO . ANY NEW ALLERGIES? NO . PSYCHIATRIC: DO YOU HAVE THOUGHTS OF HURTING YOURSELF OR SOMEONE ELSE? NO . ARE YOU ABUSED, NEGLECTED, OR IN AN UNSAFE ENVIRONMENT? NO . ENDOCRINOLOGY: ARE YOU DIABETIC? YES . OTHER: DO YOU NEED ANY PRESCRIPTIONS? NO . IF YES, PLEASE LIST: ____ . ANY NEW PROBLEMS WITH YOUR MEDICATIONS? NO . WHEN DID YOU LAST EAT? ____ . WHEN DID YOU LAST DRINK? ____ . WHAT DID YOU LAST DRINK? ____ . NAME OF PERSON DRIVING YOU HOME? ____ . DO YOU HAVE ANY OTHER QUESTIONS OR CONCERNS NO . VITAL SIGNS WT 167.0 LBS, HT 62.5", BMI 30.05 INDEX, BP 128/73 MM HG, HR 81 /MIN, RR 16 /MIN, TEMP 98.0 F, OXYGEN SAT % 96%, NA INITIALS [id number], REVIEWED BY: CS. EXAMINATION GENERAL EXAMINATION: GENERAL APPEARANCE:GOOD COLOR. PSYCHALERT , ORIENTED X 3, ANXOIUS. LUNGS:CLEAR TO AUSCULTATION BILATERALLY. HEART:HEART RATE REGULAR, NO MURMURS. MUSCULOSKELETAL:HYPERSENSITIVITY TO LIGHT TOUCH OVER LUMBAR REGION. VERY POOR BALANCE. USIES WALKER. NEUROLOGIC EXAM:MARKED DECREASE IN SENSATION IN STOCKING/GLOVE FASHIN OVER BILATERAL LOWER EXTREMITIES TO LEVEL OF KNEE, AND UPPER EXTREMITIES TO MID FOREARM. ASSESSMENTS LUMBAR SPONDYLOSIS - M47.816 (PRIMARY) NEUROPATHY - G62.9 CHRONIC USE OF OPIATE FOR THERAPEUTIC PURPOSE - Z79.891 GAIT INSTABILITY - R26.81 TREATMENT LUMBAR SPONDYLOSIS NOTES: DUE TO INABILITY TO SAFELY MANAGE PAIN MEDS WILL NOT BE ABLE TO CONTINUE PERCOCET OR OTHER OPIODS. WILL WORK TO WEAN DONE MANY MEDS POSSIBLE. 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 CLINICAL NOTES: ISTOP REGISTRY REVIEWED AND DEMNOSTRATES COMPLLIANCE. DOES NOT BRING IN MEDICATION?PERCOCET WHICH SHOULD BE REMAINING - STATES SHE HAS LOT IT AND CAN NOT FIND IT. RECENT URINE TOXICOLOGY REVIEWED. OTHERS STOP BACLOFEN TABLET, 10 MG, 1 TABLET WITH FOOD OR MILK, ORALLY, TWICE DAILY NEEDED FOR SPASMS STOP OXYCODONE-ACETAMINOPHEN TABLET, 5-325 MG, 1 TABLET NEEDED, ORALLY, EVERY 6 HRS, NOTES: TAKING ONCE A DAY-FROM ER NOTES: DISPOSE OF BACLOFEN. PROCEDURE CODES FA211 ESTABILISHED PATIENT [facility] CHARGE DISPOSITION & COMMUNICATION FOLLOW UP 3 WEEKS (REASON: CHECK AUTH FOR PHYSICAL THERAPY) ELECTRONICALLY SIGNED BY ASH MYLES ON 12/26/2016 AT 08:46 AM EDT DISCLAIMER : THIS IS A VISIT SUMMARY EXTRACTED FROM THE [employer] CHART. IT IS NOT A COPY OF THE [employer] PROGRESS NOTE. LAURAD
== END ==
LOC: M PAIN 08:40
PROVIDERS: ATTEND Nurse Practitioner Family
DX: M47.816 Spondylosis without myelopathy or radiculopathy, lumbar region (principal); G62.9 Polyneuropathy, unspecified; R26.81 Unsteadiness on feet; Z79.891 Long term (current) use of opiate analgesic; Z79.84 Long term (current) use of oral hypoglycemic drugs; Z79.82 Long term (current) use of aspirin; Z79.4 Long term (current) use of insulin; Z88.1 Allergy status to other antibiotic agents

== ENCOUNTER 2016-12-19 14:38 | Inpatient (IN) | payer OTHER ==
[~2016-12-19] VITALS: Ht 157.5 cm; Wt 76.6 kg
[~2016-12-19 14:38] MED LIST changes: +ALPH1CAP PO; -ALPH200C2 PO; +ASPI81TA13 PO; -ASPI81TA24 PO; -ATOR1TAB21 PO; +ATOR40TA PO; -ATOR40TA75 PO; +AUGM875T27 PO; -AUGM875T28 PO; +BACITAB3 PO; -CIPR-249 PO; +CIPR500T89 PO; -CITRSOL8 PO; +COLA100C3 PO; -COLA100C5 PO; -FERR1TAB8 PO; -FLUD0.1T PO; +FLUD1TA PO; -GLUC1CHW11 PO; +IBUP200C PO; -IBUP200C10 PO; -KEFL500C17 PO; +KEFL500C7 PO; +LIDO5DIS36 TD; -LIDO5DIS41 TD; -MACR100C43 PO; +METH-107 PO; -METH1TAB40 PO; -OXYC1TAB23 PO; +RISP0.5T16 PO; -RISP0.5T21 PO; +RISP3TAB18 PO; -RISP3TAB20 PO; -SENN1TAB10 PO; +SENN8.6T10 PO; +SENO8.6T2 PO; -SENO8.6T5 PO; +[UNRECOGNIZED DRUG - CODE] PO
[2016-12-19] MEDS ORDERED: ONDANSETRON 4MG/2ML VIAL (J2405) As Ordered ONE (14:59)
[2016-12-19] MEDS ORDERED: NS 500 ML IV ONE (15:00)
[2016-12-19] MEDS ORDERED: ONDANSETRON 4MG/2ML VIAL (J2405) IV ONE (15:15)
[2016-12-19 15:49] LABS: ABG BASE EXCESS -3.6 (-2.0-2.0); ABG HCO3 21.7 MEQ/L (22.0-26.0); ABG PARTIAL PRESSURE CO2 40.3 mmHg (35.0-45.0); ABG PARTIAL PRESSURE O2 73.8 mmHg (75.0-100.0); ABG STANDARD HCO3 21.4 MEQ/L (22.0-26.0); ABG TOTAL CO2 22.9 MEQ/L (22.0-29.0); ABG pH (ARTERIAL) 7.349 UNITS (7.350-7.450)
--- NOTE | 2016-12-19 15:56 | REP ---
REASON: Altered mental status. COMPARISON: 10/28/2016. TECHNIQUE: 4.5 mm contiguous transaxial sections were obtained from the skull base to the cerebral convexities with thin cuts through the posterior fossa without the administration of intravenous contrast. FINDINGS: The ventricles and sulci are consistent with the patient's age. There are no extra-axial fluid collections. There is no mass effect. The deep cerebral white matter is consistent with the patient's age. The orbital and petrous structures, cerebellopontine angles, and posterior fossa are unremarkable. The sella turcica, cavernous, and paracavernous structures are essentially unremarkable. The visualized portions of the paranasal sinuses and mastoid air cells are clear. Images of the skull base show no gross abnormality. IMPRESSION: Essentially unremarkable CT examination of the brain. There has been no significant change from the prior exam. Signed by Kurt Gordon DO 12/19/2016 04:24 P
--- NOTE | 2016-12-19 15:59 | REP ---
REASON: Altered mental status. COMPARISON: 10/26/2016 FINDINGS: The technique utilized in obtaining the radiograph has magnified the cardiac silhouette and accentuated the interstitial markings. The superior mediastinal structures are midline. The cardiac silhouette is unremarkable in size, shape, and position. The diaphragmatic surfaces of the lungs are regular, and the costophrenic angles are clear. The pulmonary rose are clear. The imaged osseous structures are intact. IMPRESSION: There is no acute cardiopulmonary disease. Signed by Kurt Gordon DO 12/19/2016 04:24 P
[2016-12-19 16:01] LABS: BASO # 0.1 K/mm3 (0.0-0.2); BASO % 0.5 % (0.0-1.0); EOS # 0.1 K/mm3 (0.0-0.50); EOS % 0.7 % (0.0-3.0); LARGE UNSTAINED CELL # 0.1 K/mm3 (0.0-0.4); LARGE UNSTAINED CELL % 0.5 % (0.0-4.0); LYMPH # 0.8 K/mm3 (1.5-4.5); LYMPH % 6.9 % (24.0-44.0); MEAN CORPUSCULAR HEMOGLOBIN 30.8 pg (27.0-33.0); MEAN CORPUSCULAR HGB CONC 34.6 g/dl (32.0-36.5); MONO # 0.3 K/mm3 (0.0-0.8); MONO % 2.5 % (0.0-5.0); NEUTROPHILS # 9.4 K/mm3 (1.8-7.7); NEUTROPHILS % 88.9 % (36.0-66.0); PLATELET COUNT, AUTOMATED 297 k/mm3 (150-450); RED CELL DISTRIBUTION WIDTH 13.1 % (11.5-14.5); WHITE BLOOD COUNT 10.6 K/mm3 (4.0-10.0)
--- NOTE | 2016-12-19 16:04 | REP ---
CT ABDOMEN AND PELVIS WITHOUT CONTRAST: CT abdomen and pelvis was performed without oral or IV contrast. Sagittal and coronal reconstruction images are performed. Comparison made with multiple prior exams, the most recent 11/16/2016. In the visualized lung bases there is mild patchy atelectasis or infiltrate in the left lower lobe. Liver, gallbladder, spleen, left adrenal and pancreas are grossly unremarkable. Left kidney is grossly unremarkable. Patient has had a prior right nephrectomy. Mild atherosclerotic calcifications are see of the abdominal aorta without aneurysm. There is no adenopathy. There is no free air or free fluid. There is no bowel wall thickening. There is air in the urinary bladder, likely from recent catheterization. No pelvic mass is seen. There are small bilateral inguinal hernias containing fat. IMPRESSION: Mild patchy left lower lobe atelectasis/infiltrate. Small bilateral inguinal hernias containing fat. Air in the urinary bladder likely from recent catheterization. No free air or free fluid and no evidence of bowel obstruction. Signed by Curtis Verdugo MD 12/19/2016 04:47 P
[2016-12-19 16:30] LABS: METHADONE URINE NEGATIVE (NEGATIVE)
[2016-12-19 16:31] LABS: ALBUMIN 2.8 GM/DL (3.2-5.2); ALBUMIN/GLOBULIN RATIO 0.67 (1.00-1.93); ALKALINE PHOSPHATASE 107 U/L (45-117); ALT/SGPT 29 U/L (12-78); ANION GAP 8 MEQ/L (8-16); AST/SGOT 19 U/L (15-37); BILIRUBIN,DIRECT < 0.1 MG/DL (0.0-0.2); BILIRUBIN,TOTAL 0.2 MG/DL (0.2-1.0); BLOOD UREA NITROGEN 30 MG/DL (7-18); CALCIUM LEVEL 8.5 MG/DL (8.5-10.1); CARBON DIOXIDE LEVEL 24 MEQ/L (21-32); CHLORIDE LEVEL 105 MEQ/L (98-107); CREATININE FOR GFR 1.17 MG/DL (0.55-1.02); GLOMERULAR FILTRATION RATE 51.3 (>51); GLUCOSE, FASTING 186 MG/DL (70-105); POTASSIUM SERUM 4.2 MEQ/L (3.5-5.1); SODIUM LEVEL 137 MEQ/L (136-145)
[2016-12-19] MEDS ORDERED: AZITHROMYCIN INJ 500 MG, VIAL MATE ADAPTER 1 EACH in D5W 250 ML IV ONE (17:30)
[2016-12-19] MEDS ORDERED: cefTRIAXone SOD 1 GM in D5W MINI-BAG PLUS 50 ML IV ONE (17:30)
[2016-12-19] MEDS ORDERED: NS 1,000 ML IV ONE (17:45)
[2016-12-19] MEDS ORDERED: OXYC1TAB23 PO (18:21)
[2016-12-19] MEDS ORDERED: INSUH10VL SC (18:30)
[2016-12-19] MEDS ORDERED: NS 1,000 ML IV SCH (18:38)
[2016-12-19] MEDS ORDERED: NITROGLYCERIN 0.4 MG SUBL TABLET SL PRN (18:45)
[2016-12-19] MEDS ORDERED: ONDANSETRON 4MG/2ML VIAL (J2405) IV PRN (18:45)
[2016-12-19] MEDS ORDERED: MIRALAX *UNIT DOSE* 17GM PACKET PO PRN (18:45)
[2016-12-19] MEDS ORDERED: FLUTICASONE PROP 0.05% NASAL SPRAY 16 GM (FLONASE) PRN (18:45)
[2016-12-19] MEDS ORDERED: GLUCAGON FOR INJ 1 MG VIAL (J1610) SC PRN (18:45)
[2016-12-19] MEDS ORDERED: DEXTROSE 50% 50 ML SYRINGE IV PRN (18:45)
[2016-12-19] MEDS ORDERED: GLUCOSE 4 GM CHEW TABLET PO PRN (18:45)
[2016-12-19] MEDS ORDERED: AMMONIA AROMATIC INHALANT (FLOOR STOCK) As Ordered ONE (18:47)
[2016-12-19] MEDS ORDERED: hydrALAZINE INJ 20 MG/ML VIAL IV ONE (19:15)
[2016-12-19] MEDS: cefTRIAXone SOD 1 GM in D5W MINI-BAG PLUS 50 ML IV SCH (20:00)
[2016-12-19] MEDS: CHOLESTYRAMINE 4 GM PWD PKT PO SCH (21:00)
[2016-12-19] MEDS: POTASSIUM CHLORIDE 10 MEQ SR TABLET PO SCH (21:00)
[2016-12-19] MEDS: DOCUSATE SODIUM 100 MG CAP PO SCH (21:00)
[2016-12-19] MEDS: HumaLOG INSULIN (NovoLOG) PER UNIT SC SCH (21:00)
--- NOTE | 2016-12-19 21:00 | HPEPDOC ---
General Date of Admission Dec 19, 2016 at 19:13 Primary Care Physician: Opal Peters R.N., A.N.P. Other Providers Credit Collections Clerk: Dr. Meek Attending Physician: WOLFGANG JANG DO Chief Complaint The patient is a 56-year-old female admitted with a reason for visit of Metabolic Encephalopathy;Uti. Source: Family Exam Limitations: Other (unresponsive) Severity: Moderate Associated Symptoms: Unobtainable History of Present Illness PRIMARY CARE PROVIDER: Opal Peters ECONOMIC SPECIALIST Internal Medicine at [facility] CHIEF COMPLAINT: found unresponsive/altered mental status HISTORY OF PRESENT ILLNESS: Miss Cabrera is a 56-year-old female with a past medical history significant for type 2 diabetes and diabetic neuropathy, hypertension, dyslipidemia, non-oxygen dependent COPD, CKD stage III with right radical nephrectomy secondary to recurrent kidney stones and recurrent urinary tract infections, hx of urinary retention, chronic back pain with lumbar spondylosis and neuropathy, osteopenia on DEXA scan in December 2008, Raynaud's disease with gangrene in August 2016, anxiety, GERD, and CHF with diastolic dysfunction (echocardiogram 2010 with EF 65% diastolic dysfunction with trace mitral insufficiency), diverticulosis, L ankle fracture treated with a brace, who presented to the [facility] ED via EMS for unresponsiveness at approximately 1400. At the patient's home, she was given 2 mg of Narcan via EMS intranasally without any response. According to ED note, patient's blood glucose was 149, the patient began vomiting, and was given 4 mg of Zofran IV push. The EMS report that the patient did not seem that she took anything other than her prescribed medications. Patient did at one point states that she was hot to EMS, but felt cold to the touch. Patient was reported to be incontinent of urine on arrival, reported to be answering some questions and denying taking anything. All of the rest of the history per HPI was given by the patient's sister. Sister states that patient Had Called Her regarding the Patient Not Doing Good and Not Responding Appropriately. Sister states that son said that patient had called him "mom." This occurred around 12:30 in the afternoon. After this phone call, the patient' s sister came over to the patient's house and around 15 minutes and saw the patient laying in bed and vomiting. Sister is a home health aide and took vital signs his blood pressure, respiratory rate and a fingerstick sugar level which was 112. All other vital signs to her left normal. However, patient continued to not respond to anything at the sister had tried to do to stimulate her. Sister try to move her physically and had tried to tickle her feet, but nothing affected her. She then told the patient's son to call 911. EMS came and took the patient to the [facility] ED where she arrived later in the afternoon. Furthermore , patient's sister states that patient was shaking when she was having a seizure in the hospital. He was bouncing her head off of the pillow and her whole body was shaking. No bruising or bleeding was seen or noted. Sensation denied that the patient was sick at all to this point. Denied recent illnesses or medication changes that she knew of. States the patient has a psychiatric social worker who keeps an eye on the patient and reports to the patient's doctor and ALSO to the state once a month. The patient lives at home with a son who is round in his 30s. Sister states that the patient has never had an episode of unresponsiveness before. This was the first time. She admits the patient is homebound, and that she has some weakness in her legs that makes her legs give out and cause patient to fall once in a while. The last time the patient fell around 2-3 months ago. The sister reports that patient does not stand for long periods of time otherwise her legs are too weak and give out. Patient does walk with using a walker but she just had gotten this around one year or so ago. In addition, sister states she thinks the patient has bowel/bladder incontinence and normally wears diapers. Admits the patient has some forgetfulness and will forget things that she has done throughout the day and at what time. States the patient does not work and is homebound. Review of systems as per patient were not obtainable due to her state of unconsciousness. Sr. reports that she does not believe there was any trauma. Of note, patient did awaken by using ammonia salt near nose in the ED. And patient's BP at 7:11 PM was taken, and noted to be 201/97 in the ED by OMS III. PAST MEDICAL HISTORY: Recurrent urinary tract infections Diabetes mellitus type 2 diagnosed about [address] Magallanes [facility] Diabetic neuropathy Hypertension Dyslipidemia GERD Non-oxygen dependent COPD Asthma PFTs from [facility] 03/08/15 showing Nonspecific airflow reduction, mild air trapping, and moderate diffusion impairment. Some improvement noted following bronchodilator administration. CKD stage III with robotic-assisted right radical nephrectomy for atrophic kidney Migraine headaches Heart murmur diagnosed 2000 Recurrent kidney stones PAST SURGICAL HISTORY: Robotic-assisted right radical nephrectomy with removal of R double-J stent in November 2013 Ureteropelvic Junction Repair Nephrostomy tube placement MEDICATIONS: Please see list below for home meds. ALLERGIES: Chronic back pain with lumbar spondylosis and neuropathy Raynaud's Disease Osteopenia Dexa-01/04 Anxiety Depression GERD History of diverticulosis Left ankle fracture treated with a brace Congestive heart failure with diastolic dysfunction and ejection fraction of 65 % on echocardiogram in 2010 Ciprofloxacin: rash SOCIAL HISTORY: Lives at home but son. Smokes cigarettes and started around 18 or 19 years old. Smokes around one pack per day. Has not quit. EtOH: Never No illicit drug use ever. No pets in the home. No recent travel. Patient does not have her own vehicle. Immunizations up-to-date. FAMILY HISTORY: Positive for UT, strokes, DM type I and 2, throat cancer in maternal grandmother , glaucoma, Graves disease Sister: Hypothyroid, hypercholesterolemia Aunt: Hypercholesterolemia CODE STATUS: Full code Healthcare proxy: Unclear. However, sister giving hx states she may be one. Her name is Mona Escalona. She states children of patient may also be healthcare proxies and said that they would all have the last name Rick. REVIEW OF SYSTEMS: Unobtainable. Please see HPI. PHYSICAL EXAMINATION: Initial ED Vitals: T: 96.7 BP: 199/103 RR: 17 P: 73 O2 Saturation: 97% room air General: Unarousable adult female lying in gurney. Will not wake to sternal rub or shouting her name in her ear or palpating finger nailbeds hard. From time to time, patient will mumble things out loud that are not clear sentences. She also opens her eyes at times but does not answer questions or follow commands. HEENT: Head: normocephalic, atraumatic. Eyes: PERRL ~2 mm, sclera are nonicteric, no conjunctival pallor. Nose: No external lesions Throat: no pharyngeal erythema or exudates, moist buccal mucosa Neck: No cervical LAD Bilaterally. No thyromegaly. Respiratory: clear to auscultation bilaterally with no wheezes, rales, or rhonchi. Cardiovascular: regular rate and rhythm, with no appreciable murmurs, rubs or gallops. Abdomen: soft, nondistended, no hepatosplenomegaly appreciated. Bowel sounds hypoactive Extremities: no swelling in either lower extremity bilaterally Neurological: unable to test sensation. Reflexes: +2 biceps, +2 achilles, and normal babinski's sign bilaterally. No ankle clonus noted. Pt not following commands. Integumentary: skin free from rashes, lesions, abrasions. No unusual bruising or bleeding noted from head to toe in exposed areas. Vascular: +2 dorsalis pedis and posterior tibialis pulses palpable and symmetrical in upper and lower extremities bilaterally. LABORATORY DATA: Please see below for full labs. CBC remarkable for WBC 10.6, Neut %: 88.9, Lymph%: 6.9 CMP remarkable for: BUN 30, Cr 1.17, fasting glucose: 186, lactic acid: 0.9, Total bili: 0.2, Direct bili: <0.1, AST: 19, ALT: 29, Alk phos: 107, ammonia: 48 , CK-MB: 3.9, Troponin I: <0.02, Albumin: 2.8, TSH: 1.390 ABG: pH 7.349/pCO2 40.3/pO2: 73.8, base excess: -3.6 Urine Tox: essentially (-), only (+) salicylates: 4.1 and (+) for acetaminophen : <2.0, but (-) for opiates and everything else. UA: cloudy, 3+ protein, Leuk esterase: 1+, WBCs: 38, RBC: 9, bacteria: 3+, and squamous epithelial cells: 0 MICROBIOLOGY: Blood cx pending Urine cx pending ELECTROCARDIOGRAM: Sinus Rhythm with no ST elevation or depression. Some possible intraventricular conduction delay. Rate: 70 VT interval: 168 QRS Duration: 116 QTc Interval: 424 RADIOLOGY: CT Head without contrast: (-) Portable CXR: (-) CT Abdomen/Pelvis Without Contrast: LLL atelectasis/infiltrate. No free air or free fluid or obstruction. Air in bladder likely from catheter. Small bilateral inguinal hernias contain fat. ASSESSMENT: Miss Cabrera is a 56-year-old female with a past medical history significant for type 2 diabetes and diabetic neuropathy, hypertension, dyslipidemia, non-oxygen dependent COPD, CKD stage III with right radical nephrectomy secondary to recurrent kidney stones and recurrent urinary tract infections, hx of urinary retention, chronic back pain with lumbar spondylosis and neuropathy, osteopenia on DEXA scan in December 2008, Raynaud's disease with gangrene in August 2016, anxiety, GERD, and CHF with diastolic dysfunction (echocardiogram 2010 with EF 65% diastolic dysfunction with trace mitral insufficiency), diverticulosis, L ankle fracture treated with a brace, who presented to the [facility] ED via EMS for unresponsiveness. At the patient's home, she was given 2 mg of Narcan via EMS intranasally without any response. Suspect AMS/metabolic encephalopathy secondary to UTI. PLAN: Will admit to telemetry or Med/Surg unit. Metabolic encephalopathy secondary to UTI: Ammonia level slightly elevated at 48. At this point in time, we will monitor. We will hold all sedating medications, hold all pain medications, hold wellbutrin, neurontin, amitriptylene, baclofen. If mentation does not improve, may consider contacting Neurology for a consult. Will give IVF. Will tx with rocephin. Have obtained blood cx and will follow up when available. Will consult PT for evaluation and treatment as well. UTI: treating with rocephin. Will follow up urine cx when available. Hypertensive Urgency vs. Emergency: elevated BPs 200s/100s. Will give one-time dose of 5 mg IV hydralazine. Recheck BP. Will obtain MRI of brain. Will follow up when results available. Hypertension: Will give nitrostat sublingual PRN, nifedipine, and lisinopril. Diabetes mellitus type 2: will start ISS and check fingersticks at AC and HS. Check BMPs daily. Diabetic neuropathy: will discontinue amitriptylene, neurontin, and lyrica. Dyslipidemia: continue aspirin and cholestyramine Non-oxygen dependent COPD: ABG came back showing some mild possible respiratory acidosis. Will continue to monitor clinically. Asthma: chronic. Monitor clinically. CKD stage III with robotic-assisted right radical nephrectomy for atrophic kidney: BUN and Cr at baseline for now. Continue gentle IVF hydration and continue to monitor daily BMPs. GERD: continue omeprazole. Migraine headaches: chronic. Continue to monitor. Heart murmur diagnosed 2000: continue to monitor. Recurrent kidney stones: monitor clinically. PT consulted. DVT ppx: heparin FULL CODE STATUS Immunizations as per protocol. My preceptor for this patient encounter was Dr. Wolfgang Jang, and was physically present in the building during the encounter and was fully available. As needed, all aspects of the patient interview, examination, medical decision making process, and medical care plan development were reviewed and approved by the preceptor. Preceptor is aware and concurs with the plan as stated in the body of this note and will attest to such by his/her cosignature. Home Medications Scheduled (Anoro Ellipta 62.5-25 Mcg/INH) 1 Aer Aer, 1 AER INH DAILY, (Reported) (Trilipix) 135 Mg Cap, 135 MG PO DAILY, (Reported) (Toujeo Solostar) 300 Unit/Ml Inj, 64 UNIT SC DAILY, (Reported) Alendronate Sodium (Fosamax) 70 Mg Tab, 70 MG PO QWEEK, (Reported) MONDAYS Amitriptyline HCl (Amitriptyline HCl) 10 Mg Tab, 50 MG PO QHS, (Reported) Aspirin (Aspirin EC) 81 Mg Tabec, 81 MG PO DAILY, (Reported) Bethanechol Chl (Bethanechol Chloride) 50 Mg Tab, 25 MG PO TID, (Reported) Bupropion HCl (Bupropion HCl Xl) 300 Mg Tab, 300 MG PO DAILY, (Reported) Cholestyramine (Questran) 4 Gm Pow, 4 GM PO BID, (Reported) Fludrocortisone Acetate (Fludrocortisone Acetate) 0.1 Mg Tab, 0.1 MG PO 3XW, ( Reported) MONDAYS, WEDNESDAYS AND FRIDAYS Gabapentin (Gabapentin) 100 Mg Cap, 100 MG PO TID, (Reported) Insulin Aspart (Novolog) 100 U/Ml Inj, 1 DOSE SC TID, (Reported) per sliding scale Lactulose (Lactulose) 10 Gm/15 Ml Kanwal, 15 ML PO DAILY, (Reported) Lipoic Acid (Thioctic Acid) (Alpha Lipoic Acid) 200 Mg Cap, 200 MG PO DAILY, ( Reported) Lisinopril (Lisinopril) 2.5 Mg Tab, 2.5 MG PO DAILY, (Reported) Magnesium Oxide (Magnesium) 400 Mg Tab, 400 MG PO DAILY, (Reported) Nifedipine (Nifedipine) 10 Mg Cap, 10 MG PO DAILY, (Reported) Omeprazole (Omeprazole) 40 Mg Cap, 40 MG PO DAILY, (Reported) Potassium Chloride (K-Tab) 20 Meq Tab, 20 MEQ PO BID, (Reported) Pregabalin (Lyrica) 150 Mg Cap, 150 MG PO BID, (Reported) Tizanidine Hydrochloride (Tizanidine HCl) 2 Mg Cap, 2 MG PO TID, (Reported) Scheduled PRN (Flonase Allergy Relief) 50 Mcg/Act Spr, 50 MCG NA BID PRN for NASAL CONGESTION , (Reported) Albuterol Sulfate (Ventolin Hfa) 200 Puff/8 Gm Aers, 2 PUFF INH QID PRN for SHORTNESS OF BREATH, (Reported) Baclofen (Baclofen) 10 Mg Tab, 10 MG PO BID PRN for SPASMS, (Reported) Docusate Sodium (Colace) 100 Mg Cap, 100 MG PO TID PRN for CONSTIPATION, ( Reported) Nitroglycerin (Nitrostat) 0.4 Mg Subl, 0.4 MG SL NITRO PRN for CHEST PAIN, ( Reported) Oxycodone/Acetaminophen (Oxycodone/Acetaminophen 5-325 mg) 1 Tab Tab, 1 TAB PO Q4H PRN for PAIN, (Reported) Polyethylene Glycol (Miralax) 1 Pow Pow, 17 GM PO DAILY PRN for CONSTIPATION, ( Reported) Sumatriptan Succinate (Sumatriptan Succinate) 50 Mg Tab, 50 MG PO ASDIRECTED PRN for MIGRAINE, (Reported) Tramadol HCl (Tramadol HCl) 50 Mg Tab, 50 MG PO Q6HP PRN for PAIN, (Reported) Allergies Coded Allergies: Ciprofloxacin (Verified Allergy, Intermediate, RASH, 10/28/16) Vital Signs Vital Signs Date Time Temp Pulse Resp B/P (MAP) Pulse Ox O2 Delivery O2 Flow Rate FiO2 12/19/16 19:49 201/97 12/19/16 19:20 74 98 12/19/16 17:35 16 12/19/16 16:14 Room Air 12/19/16 14:44 96.7 Laboratory Data Labs 24H Laboratory Tests 2 12/19/16 15:33: Blood Gas Bicarbonate Standard 21.4L, Arterial Blood pH 7.349L, Arterial Blood Partial Pressure CO2 40.3, Arterial Blood Partial Pressure O2 73.8L, Arterial Blood Total CO2 22.9, Arterial Blood HCO3 21.7L, Arterial Blood Base Excess - 3.6L, Arterial Blood Oxygen Saturation 94.6L 12/19/16 15:49: Urine Appearance CLOUDYH, Urine Color YELLOW, Urine pH 6.0, Urine Specific [place] 1.009, Urine Protein 3+H, Urine Glucose (UA) NEGATIVE, Urine Ketones NEGATIVE, Urine Urobilinogen 0.2, Urine Bilirubin NEGATIVE, Urine Leukocyte Esterase 1+H, Urine Blood NEGATIVE, Urine Nitrite NEGATIVE, Urine WBC (Auto) 38H , Urine RBC (Auto) 9H, Urine Hyaline Casts (Auto) 0, Urine Bacteria (Auto) 3+H, Urine Squamous Epithelial Cells 0, Urine Sperm (Auto) , Urine Amphetamines Screen NEGATIVE, Urine Benzodiazepines Screen NEGATIVE, Urine Opiates Screen NEGATIVE, Urine Methadone Screen NEGATIVE, Urine Barbiturates Screen NEGATIVE, Urine Phencyclidine Screen NEGATIVE, Urine Cocaine Metabolite Screen NEGATIVE, Urine Cannabinoids Screen NEGATIVE 12/19/16 15:50: White Blood Count 10.6H, Red Blood Count 4.51, Hemoglobin 13.9, Hematocrit 40.1 , Mean Corpuscular Volume 89.0, Mean Corpuscular Hemoglobin 30.8, Mean Corpuscular Hemoglobin Concent 34.6, Red Cell Distribution Width 13.1, Platelet Count 297, Neutrophils (%) (Auto) 88.9H, Lymphocytes (%) (Auto) 6.9L, Monocytes (%) (Auto) 2.5, Eosinophils (%) (Auto) 0.7, Basophils (%) (Auto) 0.5, Neutrophils # (Auto) 9.4H, Lymphocytes # (Auto) 0.8L, Monocytes # (Auto) 0.3, Eosinophils # (Auto) 0.1, Basophils # (Auto) 0.1, Large Unclassified Cells % 0.5 , Large Unclassified Cells # 0.1, Anion Gap 8, Glomerular Filtration Rate 51.3, Lactic Acid Level 0.9, Calcium Level 8.5, Magnesium Level 2.0, Aspartate Amino Transf (AST/SGOT) 19, Alanine Aminotransferase (ALT/SGPT) 29, Alkaline Phosphatase 107, Total Bilirubin 0.2, Direct Bilirubin < 0.1, Ammonia 48H, Total Creatine Kinase 149, Creatine Kinase MB 3.9H, Creatine Kinase MB Relative Index 2.61, Troponin I < 0.02, Total Protein 7.0, Albumin 2.8L, Albumin/ Globulin Ratio 0.67L, Thyroid Stimulating Hormone (TSH) 1.590, Salicylates Level 4.1L, Acetaminophen Level < 2.0L, Ethyl Alcohol Level < 0.003 CBC/BMP Laboratory Tests 12/19/16 15:50 Red Blood Count 4.51, Mean Corpuscular Volume 89.0, Mean Corpuscular Hemoglobin 30.8, Mean Corpuscular Hemoglobin Concent 34.6, Red Cell Distribution Width 13.1 , Neutrophils (%) (Auto) 88.9 H, Lymphocytes (%) (Auto) 6.9 L, Monocytes (%) ( Auto) 2.5, Eosinophils (%) (Auto) 0.7, Basophils (%) (Auto) 0.5, Neutrophils # ( Auto) 9.4 H, Lymphocytes # (Auto) 0.8 L, Monocytes # (Auto) 0.3, Eosinophils # ( Auto) 0.1, Basophils # (Auto) 0.1 Microbiology Microbiology 12/19/16 Blood Culture, Received Pending 12/19/16 Blood Culture, Received Pending 12/19/16 Urine Culture, Received Pending Plan / VTE VTE Prophylaxis Ordered?: Yes (heparin SC) TASHA CALHOUN OGME-1 Dec 19, 2016 21:00
--- NOTE | 2016-12-19 21:50 | REPUSA ---
MRI brain Clinical history: Unresponsive. Comparison: CT, 10/28/2016. Technique: Multiecho multiplanar MRI images of the brain were obtained without administration of cont rast. Diffusion weighted images with ADC mapping was also obtained. Findings: The ventricles and sulci are symmetric bilaterally. There is a small area of restricted di ffusion demonstrated in the head of the left corpus callosum. There is also a very tiny focus of rest ricted diffusion in the left basal ganglia. There is no midline shift, mass effect, or extra-axial fl uid collection. The midline intracranial structures do not demonstrate any gross abnormalities. The c ervical cranial junction is intact. The orbits are unremarkable. The visualized paranasal sinuses and mastoid air cells are clear. The osseous structures and superficial soft tissues are unremarkable. T he vascular structures demonstrate appropriate flow voids. Impression: Two small areas of restricted diffusion in the head of the left corpus callosum and in th e left basal ganglia, consistent with tiny acute infarcts. Report will be called in by our crawler dragline operator.
[2016-12-19] MEDS ORDERED: amLODIPine 5 MG TAB PO ONE (22:00)
[2016-12-19 22:30] VITALS: BP 185/89
[2016-12-19] MEDS ORDERED: hydrALAZINE INJ 20 MG/ML VIAL IV PRN (23:15)
[2016-12-19] MEDS: ONDANSETRON 4MG/2ML VIAL (J2405) IV PRN (23:31)
[2016-12-20] VITALS (11 sets, daily range): BP systolic 115–162; BP diastolic 66–91
[2016-12-20] MEDS: ONDANSETRON 4MG/2ML VIAL (J2405) IV PRN ×4 (03:15→22:42)
[2016-12-20] MEDS: ACETAMINOPHEN TAB 650MG DOSE (2X325MG) PO PRN ×4 (03:49→22:24)
[2016-12-20 05:50] LABS: BASO % 0.2 % (0.0-1.0); EOS % 0.4 % (0.0-3.0); LARGE UNSTAINED CELL # 0.1 K/mm3 (0.0-0.4); LARGE UNSTAINED CELL % 0.7 % (0.0-4.0); LYMPH # 0.7 K/mm3 (1.5-4.5); LYMPH % 6.5 % (24.0-44.0); MEAN CORPUSCULAR HEMOGLOBIN 31.5 pg (27.0-33.0); MEAN CORPUSCULAR HGB CONC 35.5 g/dl (32.0-36.5); MEAN CORPUSCULAR VOLUME 88.8 fl (80.0-96.0); MONO # 0.4 K/mm3 (0.0-0.8); MONO % 4.4 % (0.0-5.0); NEUTROPHILS # 8.5 K/mm3 (1.8-7.7); NEUTROPHILS % 87.9 % (36.0-66.0); PLATELET COUNT, AUTOMATED 330 k/mm3 (150-450); RED CELL DISTRIBUTION WIDTH 13.2 % (11.5-14.5); WHITE BLOOD COUNT 9.7 K/mm3 (4.0-10.0)
--- NOTE | 2016-12-20 06:00 | ECGEPIP ---
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
[2016-12-20] MEDS: HEPARIN SOD (PORCINE) 5000 UNITS/ML VIAL SC SCH ×3 (06:10→22:24)
[2016-12-20] MEDS ORDERED: ASPIRIN 81 MG ENTERIC TAB PO SCH (09:00)
[2016-12-20] MEDS: HumaLOG INSULIN (NovoLOG) PER UNIT SC SCH ×4 (09:29→20:51)
[2016-12-20] MEDS: ASPIRIN 81 MG ENTERIC TAB PO SCH (09:34)
[2016-12-20] MEDS: LACTULOSE 20 GM/30 ML SYRUP UD PO SCH (09:34)
[2016-12-20] MEDS: LISINOPRIL *2.5 MG* TAB PO SCH (09:34)
[2016-12-20] MEDS: OMEPRAZOLE 20 MG CAP PO SCH (09:34)
[2016-12-20] MEDS: DOCUSATE SODIUM 100 MG CAP PO SCH ×2 (09:35→20:52)
[2016-12-20] MEDS: POTASSIUM CHLORIDE 10 MEQ SR TABLET PO SCH ×2 (09:35→20:53)
[2016-12-20] MEDS: amLODIPine 5 MG TAB PO SCH (09:35)
[2016-12-20] MEDS: NIFEdipine 10 MG CAP PO SCH (11:46)
[2016-12-20] MEDS: CHOLESTYRAMINE 4 GM PWD PKT PO SCH ×2 (11:47→20:52)
[2016-12-20] MEDS: NS 1,000 ML IV SCH ×2 (11:47→22:26)
[2016-12-20 12:11] LABS: CALCIUM LEVEL 8.6 MG/DL (8.5-10.1); CREATININE FOR GFR 1.33 MG/DL (0.55-1.02); GLOMERULAR FILTRATION RATE 44.3 (>51)
--- NOTE | 2016-12-20 15:10 | IPNPDOC ---
Subjective Date Seen The patient was seen on 12/20/16. Subjective Chief Complaint/HPI The patient is a 56-year-old female admitted with a reason for visit of Metabolic Encephalopathy;Uti. General: Reports: ROS Unobtainable Objective Physical Examination General Exam: Positive: No Acute Distress Eye Exam: Positive: PERRLA, Conjunctiva & lids normal Neck Exam: Positive: Supple, Negative: JVD, thyromegaly Chest Exam: Positive: Clear to auscultation, Normal air movement Heart Exam: Positive: Rate Normal, Regular Rhythm, Normal S1, Normal S2, Negative: Murmurs, Rubs Abdomen Exam: Positive: Normal bowel sounds, Soft, Negative: Tenderness, Hepatospenomegaly Extremity Exam: Positive: Normal pulses, Negative: Clubbing, Cyanosis, Edema Assessment /Plan Problems (1) Metabolic encephalopathy Problem Text: * pt was found unresponsive yesterday, after her son called the pt's sister stating she is not feeling well * pt was found not answering question only vomiting and shaking, she was thought to be having a seizure, * this morning pt is very groggy but answering questions, she is oriented to self and place * MRI showed 2 tiny acute infarcts, neurology consulted * EEG for thursday * echo pending * continue neuro checks Q4 hours (2) UTI (urinary tract infection) Status: Acute Problem Text: * culture pending * continue ceftriaxone (3) Increased ammonia level Status: Acute Problem Text: * pt has no known liver disease * will repeat * continue lactulose (4) CKD (chronic kidney disease) Status: Chronic Response to Treatment: Stable (5) Chronic back pain Status: Chronic Response to Treatment: Stable (6) Headache Status: Acute (7) DM (diabetes mellitus) Status: Chronic (8) COPD (chronic obstructive pulmonary disease) Status: Chronic (9) Anxiety Status: Chronic (10) Hyperlipidemia Status: Chronic Plan/VTE VTE Prophylaxis Ordered?: Yes VS, I&O, 24H, Fishbone Vital Signs/I&O Vital Signs Date Time Temp Pulse Resp B/P (MAP) Pulse Ox O2 Delivery O2 Flow Rate FiO2 12/20/16 14:05 98.5 82 18 151/85 (107) 98 Room Air I&O- Last 24 Hours up to 6 AM 12/20/16 06:00 Intake Total 480 ml Balance 480 ml Laboratory Data 24H LABS Laboratory Tests 2 12/19/16 15:33: Blood Gas Bicarbonate Standard 21.4L, Arterial Blood pH 7.349L, Arterial Blood Partial Pressure CO2 40.3, Arterial Blood Partial Pressure O2 73.8L, Arterial Blood Total CO2 22.9, Arterial Blood HCO3 21.7L, Arterial Blood Base Excess - 3.6L, Arterial Blood Oxygen Saturation 94.6L 12/19/16 15:49: Urine Appearance CLOUDYH, Urine Color YELLOW, Urine pH 6.0, Urine Specific [place] 1.009, Urine Protein 3+H, Urine Glucose (UA) NEGATIVE, Urine Ketones NEGATIVE, Urine Urobilinogen 0.2, Urine Bilirubin NEGATIVE, Urine Leukocyte Esterase 1+H, Urine Blood NEGATIVE, Urine Nitrite NEGATIVE, Urine WBC (Auto) 38H , Urine RBC (Auto) 9H, Urine Hyaline Casts (Auto) 0, Urine Bacteria (Auto) 3+H, Urine Squamous Epithelial Cells 0, Urine Sperm (Auto) , Urine Amphetamines Screen NEGATIVE, Urine Benzodiazepines Screen NEGATIVE, Urine Opiates Screen NEGATIVE, Urine Methadone Screen NEGATIVE, Urine Barbiturates Screen NEGATIVE, Urine Phencyclidine Screen NEGATIVE, Urine Cocaine Metabolite Screen NEGATIVE, Urine Cannabinoids Screen NEGATIVE 12/19/16 15:50: White Blood Count 10.6H, Red Blood Count 4.51, Hemoglobin 13.9, Hematocrit 40.1 , Mean Corpuscular Volume 89.0, Mean Corpuscular Hemoglobin 30.8, Mean Corpuscular Hemoglobin Concent 34.6, Red Cell Distribution Width 13.1, Platelet Count 297, Neutrophils (%) (Auto) 88.9H, Lymphocytes (%) (Auto) 6.9L, Monocytes (%) (Auto) 2.5, Eosinophils (%) (Auto) 0.7, Basophils (%) (Auto) 0.5, Neutrophils # (Auto) 9.4H, Lymphocytes # (Auto) 0.8L, Monocytes # (Auto) 0.3, Eosinophils # (Auto) 0.1, Basophils # (Auto) 0.1, Large Unclassified Cells % 0.5 , Large Unclassified Cells # 0.1, Anion Gap 8, Glomerular Filtration Rate 51.3, Lactic Acid Level 0.9, Calcium Level 8.5, Magnesium Level 2.0, Aspartate Amino Transf (AST/SGOT) 19, Alanine Aminotransferase (ALT/SGPT) 29, Alkaline Phosphatase 107, Total Bilirubin 0.2, Direct Bilirubin < 0.1, Ammonia 48H, Total Creatine Kinase 149, Creatine Kinase MB 3.9H, Creatine Kinase MB Relative Index 2.61, Troponin I < 0.02, Total Protein 7.0, Albumin 2.8L, Albumin/ Globulin Ratio 0.67L, Thyroid Stimulating Hormone (TSH) 1.590, Salicylates Level 4.1L, Acetaminophen Level < 2.0L, Ethyl Alcohol Level < 0.003 12/19/16 23:43: Bedside Glucose (Misc Panel) 220H 12/20/16 05:09: White Blood Count 9.7, Red Blood Count 4.12, Hemoglobin 13.0, Hematocrit 36.6, Mean Corpuscular Volume 88.8, Mean Corpuscular Hemoglobin 31.5, Mean Corpuscular Hemoglobin Concent 35.5, Red Cell Distribution Width 13.2, Platelet Count 330, Neutrophils (%) (Auto) 87.9H, Lymphocytes (%) (Auto) 6.5L, Monocytes (%) (Auto) 4.4, Eosinophils (%) (Auto) 0.4, Basophils (%) (Auto) 0.2, Neutrophils # (Auto) 8.5H, Lymphocytes # (Auto) 0.7L, Monocytes # (Auto) 0.4, Eosinophils # (Auto) 0.0, Basophils # (Auto) 0.0, Large Unclassified Cells % 0.7 , Large Unclassified Cells # 0.1, Triglycerides Level 244H, LDL Cholesterol 140.2H, Total Cholesterol 246H, Non-HDL Cholesterol (LDL + VLDL) 189, Total HDL Cholesterol 57, Cholesterol/HDL Ratio 4.315 12/20/16 08:16: Bedside Glucose (Misc Panel) 266H 12/20/16 11:41: Anion Gap 8, Glomerular Filtration Rate 44.3L, Blood Urea Nitrogen 28H, Creatinine 1.33H, Sodium Level 138, Potassium Level 4.0, Chloride Level 108H, Carbon Dioxide Level 22, Calcium Level 8.6 CBC/BMP Laboratory Tests 12/19/16 15:50 Red Blood Count 4.51, Mean Corpuscular Volume 89.0, Mean Corpuscular Hemoglobin 30.8, Mean Corpuscular Hemoglobin Concent 34.6, Red Cell Distribution Width 13.1 , Neutrophils (%) (Auto) 88.9 H, Lymphocytes (%) (Auto) 6.9 L, Monocytes (%) ( Auto) 2.5, Eosinophils (%) (Auto) 0.7, Basophils (%) (Auto) 0.5, Neutrophils # ( Auto) 9.4 H, Lymphocytes # (Auto) 0.8 L, Monocytes # (Auto) 0.3, Eosinophils # ( Auto) 0.1, Basophils # (Auto) 0.1 12/20/16 05:09 Red Blood Count 4.12, Mean Corpuscular Volume 88.8, Mean Corpuscular Hemoglobin 31.5, Mean Corpuscular Hemoglobin Concent 35.5, Red Cell Distribution Width 13.2 , Neutrophils (%) (Auto) 87.9 H, Lymphocytes (%) (Auto) 6.5 L, Monocytes (%) ( Auto) 4.4, Eosinophils (%) (Auto) 0.4, Basophils (%) (Auto) 0.2, Neutrophils # ( Auto) 8.5 H, Lymphocytes # (Auto) 0.7 L, Monocytes # (Auto) 0.4, Eosinophils # ( Auto) 0.0, Basophils # (Auto) 0.0 12/20/16 11:41 Calcium Level 8.6 Microbiology Microbiology 12/19/16 Blood Culture, Received Pending 12/19/16 Blood Culture, Received Pending 12/19/16 Urine Culture, Received Pending LAURO FREDERICK DO Dec 20, 2016 15:10
[2016-12-20 19:34] LABS: CALCIUM LEVEL 8.3 MG/DL (8.5-10.1); CREATININE FOR GFR 1.21 MG/DL (0.55-1.02); GLOMERULAR FILTRATION RATE 49.4 (>51); POTASSIUM SERUM 3.8 MEQ/L (3.5-5.1)
[2016-12-20] MEDS: cefTRIAXone SOD 1 GM in D5W MINI-BAG PLUS 50 ML IV SCH (20:52)
[2016-12-21] MEDS: ONDANSETRON 4MG/2ML VIAL (J2405) IV PRN ×2 (03:22→07:41)
[2016-12-21] MEDS: ACETAMINOPHEN TAB 650MG DOSE (2X325MG) PO PRN ×3 (03:22→11:46)
[2016-12-21 03:28] VITALS: BP 150/82
[2016-12-21 05:46] LABS: BASO % 0.6 % (0.0-1.0); EOS # 0.2 K/mm3 (0.0-0.50); EOS % 1.8 % (0.0-3.0); LARGE UNSTAINED CELL # 0.2 K/mm3 (0.0-0.4); LARGE UNSTAINED CELL % 2.1 % (0.0-4.0); LYMPH # 1.6 K/mm3 (1.5-4.5); LYMPH % 20.3 % (24.0-44.0); MEAN CORPUSCULAR HEMOGLOBIN 30.6 pg (27.0-33.0); MEAN CORPUSCULAR HGB CONC 34.3 g/dl (32.0-36.5); MEAN CORPUSCULAR VOLUME 89.1 fl (80.0-96.0); MONO # 0.5 K/mm3 (0.0-0.8); MONO % 6.3 % (0.0-5.0); NEUTROPHILS # 5.4 K/mm3 (1.8-7.7); NEUTROPHILS % 68.9 % (36.0-66.0); PLATELET COUNT, AUTOMATED 318 k/mm3 (150-450); WHITE BLOOD COUNT 7.9 K/mm3 (4.0-10.0)
[2016-12-21 05:49] LABS: CALCIUM LEVEL 8.3 MG/DL (8.5-10.1); CREATININE FOR GFR 1.08 MG/DL (0.55-1.02); GLOMERULAR FILTRATION RATE 56.3 (>51); POTASSIUM SERUM 3.7 MEQ/L (3.5-5.1)
[2016-12-21] MEDS: HEPARIN SOD (PORCINE) 5000 UNITS/ML VIAL SC SCH ×3 (05:53→21:12)
--- NOTE | 2016-12-21 07:05 | REP ---
CT BRAIN WITHOUT CONTRAST: 12/20/2016 COMPARISON: MRI brain 12/19/2016, CT brain 12/19/2016, 10/28/2016. CLINICAL HISTORY: Altered mental status. Acute ischemic changes in the left side of the corpus callosum and basal ganglia on diffusion weighted images from last night's MRI. FINDINGS: Ventricles are midline symmetric and without dilatation or displacement. The anterior corpus callosum lesion on MRI does not have a definite CT correlate. Likewise, more posteriorly in the left basal ganglia, the diffusion weighted images lesion is poorly depicted by CT. I cannot yet discern of there are infarctions in this region. There is no vascular territory infarct, hemorrhage, mass or mass effect. Cortical stripe, sulci and ventricles proportionate for age. No midline shift or dilatation. Lateral ventricles, third and fourth ventricles intact. Posterior fossa intact. IMPRESSION: 1. There is no intracranial hemorrhage, acute infarct, mass or mass effect identified. The tiny areas of abnormality seen on the diffusion weighted images on last night's MRI do not have CT correlation and there is no bleed or mass effect. Signed by Jamshid La MD 12/21/2016 09:28 A
[2016-12-21] MEDS: HumaLOG INSULIN (NovoLOG) PER UNIT SC SCH ×4 (07:26→21:00)
[2016-12-21 07:30] VITALS: BP 168/83
[2016-12-21] MEDS ORDERED: ALBUTEROL 90 MCG/ACT 8GM HFA INHALER INH PRN (07:45)
[2016-12-21] MEDS: LACTULOSE 20 GM/30 ML SYRUP UD PO SCH (08:11)
[2016-12-21] MEDS: LISINOPRIL *2.5 MG* TAB PO SCH (08:12)
[2016-12-21] MEDS: POTASSIUM CHLORIDE 10 MEQ SR TABLET PO SCH ×2 (08:12→20:07)
[2016-12-21] MEDS: PREGABALIN 100 MG CAP (LYRICA) PO SCH ×2 (08:12→20:07)
[2016-12-21] MEDS: CYANOCOBALAMIN 500 MCG TAB PO SCH (08:12)
[2016-12-21] MEDS: NIFEdipine 10 MG CAP PO SCH (08:13)
[2016-12-21] MEDS: traMADol 50 MG TAB PO PRN ×2 (08:13→14:51)
[2016-12-21] MEDS: ASPIRIN 81 MG ENTERIC TAB PO SCH (08:14)
[2016-12-21] MEDS: DOCUSATE SODIUM 100 MG CAP PO SCH ×2 (08:14→20:06)
[2016-12-21] MEDS: amLODIPine 5 MG TAB PO SCH (08:14)
[2016-12-21] MEDS: buPROPion **XL** TABLET 150MG (WELLBUTRIN XL) PO SCH (08:14)
[2016-12-21] MEDS: OMEPRAZOLE 20 MG CAP PO SCH (08:14)
--- NOTE | 2016-12-21 08:29 | IPN ---
DATE OF SERVICE: 12/21/2016 Noa is seen while rounding for the hospitalists. She was admitted with altered mental status. Two tiny acute infarcts were seen on MRI scan. Neurology has been consulted. Their note is pending. Today, she is just complaining about leg pain bilateral. She denies any focal weakness. She seems very anxious, which is chronic, but is alert and oriented. She knows where she is, the month, and the year. PHYSICAL EXAMINATION: 150/82, pulse 78, respiratory rate 22, 97% oxygen (O2) saturation, 98.3 degrees. General appearance: Resting comfortably, in no distress. Neck supple. Lungs clear. Heart: Regular rate and rhythm without murmur. Abdomen: Soft, nontender, no masses. No peripheral edema. Normal strength in the arms and legs. Normal coordination. No facial droop or weakness. LABORATORIES: CBC and BMP unremarkable. Creatinine is down to 1.0. Acute renal failure has resolved. MRI showed two small areas suggesting tiny acute infarcts left corpus callosum and left basal ganglia. IMPRESSION: 1. Stroke. She is on aspirin. Will start statin therapy. Stop the Questran, which has not been shown to reduce vascular events. Begin atorvastatin 40 mg daily. Neurology has been consulted. Electroencephalogram (EEG) is pending. Echocardiogram has been ordered. She did have an echocardiogram at [facility] in February 2016 that was essentially normal. Normal ejection fraction. Mildly elevated left atrium at 40 mm. 2. Enterobacter urinary tract infection. Continue ceftriaxone. 3. Chronic kidney disease, status post right nephrectomy. Is followed by Dr. Meek as an outpatient. Her creatinine is back to baseline. 4. Acute renal failure. This has resolved, and her creatinine is back to baseline. 5. Diabetes, under good control. She has problems with compliance as an outpatient, and her diabetic control is poor with a hemoglobin A1c in May 2016 of 13.5 and October 2016 of 12.2. She is noncompliant with insulin regimens as outpatient and refuses to do coverage, relying only on a daily dose of basal insulin, which was recently changed to [place] due to her insurance purposes. Dr. Jaida Alston actually manages her diabetes as an outpatient. 6. Elevated ammonia level. Etiology is unknown. It is back to baseline at this time. There is no history of cirrhosis. There is no cirrhosis noted on the liver on imaging studies. 7. Chronic anxiety/depression. She is followed by neurology. Estelle Beach sees her for neurology. Neurology has been consulted during this hospitalization. Their note is pending. 8. Chronic pain problems. She sees Mary Woodson at the pain clinic. The patient's Lyrica has been discontinued during this hospitalization. I would advise restarting this, as she does have this prescribed through the pain clinic. She also is on Tramadol as needed for pain and bupropion ER 300 mg daily for anxiety and depression, and I do not see where these have been restarted, and some of her current altered mental status could be due to withdrawal from these medications, which I will restart.
--- NOTE | 2016-12-21 11:23 | ECHO ---
DATE OF PROCEDURE: 12/20/2016 REFERRING PROVIDER: Dr. Wolfgang Major PATIENT LOCATION: Room 3218 REASON FOR THE ECHOCARDIOGRAM: CVA. 2D MEASUREMENT: IVS - 1.2 cm LV - 4.7 cm LVPW - 1.2 cm LA - 3.4 cm Aorta - 2.9 cm DOPPLER MEASUREMENT: Peak velocity across the aortic valve 1.7 m/s Peak velocity across the LVOT - 1.0 m/s Peak gradient across the aortic valve - 12 mmHg Mean gradient across the aortic valve - 7 mmHg Mitral E - 0.67, Mitral A - 0.81 with a ratio of 0.8. 2D COMMENTS: 1. Normal left ventricular size, wall thickness, and normal global left ventricular systolic function. The estimated global left ventricular systolic ejection fraction is 65-70%. 2. Normal left atrium. Normal right atrium and right ventricle. 3. The atrial septum appeared to be normal without evidence of defect or shunt. 4. Normal aortic root. 5. Trace pericardial effusion noted. No evidence of cardiac tamponade. 6. Mildly calcified aortic valve, leaflet excursion appeared to be normal. Normal mitral valve and tricuspid valve. The pulmonic valve and proximal pulmonary artery branches appear to be normal in limited views. 7. The inferior vena cava subjectively appear to be normal in size, central venous pressure is probably normal. DOPPLER: It detects trace to mild mitral regurgitation. Abnormal relaxation pattern was noted across the mitral valve leaflets as well as the mitral valve annulus consistent with grade 1 left ventricular diastolic dysfunction. IMPRESSION: 1. Normal global left ventricular systolic function. There were features of left ventricular diastolic dysfunction, grade 1. 2. Possible trivial aortic stenosis noted, no evidence of aortic regurgitation. 3. Trace pericardial effusion. 4. Trace to mild mitral regurgitation. MTDD
[2016-12-21 11:30] VITALS: BP 158/60
[2016-12-21 15:40] VITALS: BP 147/66
[2016-12-21 19:42] VITALS: BP 136/64
[2016-12-21] MEDS: cefTRIAXone SOD 1 GM in D5W MINI-BAG PLUS 50 ML IV SCH (20:06)
[2016-12-21] MEDS: ATORVASTATIN 20 MG TAB PO SCH (20:06)
[2016-12-21] MEDS: AMITRIPTYLINE 50 MG TAB PO SCH (20:06)
[2016-12-22 00:11] VITALS: BP 123/69
[2016-12-22 04:00] VITALS: BP 138/77
[2016-12-22] MEDS: traMADol 50 MG TAB PO PRN ×2 (04:48→20:20)
[2016-12-22] MEDS: HEPARIN SOD (PORCINE) 5000 UNITS/ML VIAL SC SCH ×3 (04:48→21:25)
[2016-12-22 05:11] LABS: BASO % 0.7 % (0.0-1.0); EOS # 0.3 K/mm3 (0.0-0.50); LARGE UNSTAINED CELL # 0.1 K/mm3 (0.0-0.4); LARGE UNSTAINED CELL % 2.4 % (0.0-4.0); LYMPH # 1.6 K/mm3 (1.5-4.5); LYMPH % 24.8 % (24.0-44.0); MEAN CORPUSCULAR HEMOGLOBIN 31.7 pg (27.0-33.0); MEAN CORPUSCULAR HGB CONC 34.6 g/dl (32.0-36.5); MEAN CORPUSCULAR VOLUME 91.6 fl (80.0-96.0); MONO # 0.6 K/mm3 (0.0-0.8); MONO % 9.3 % (0.0-5.0); NEUTROPHILS # 3.5 K/mm3 (1.8-7.7); NEUTROPHILS % 57.8 % (36.0-66.0); PLATELET COUNT, AUTOMATED 278 k/mm3 (150-450); RED CELL DISTRIBUTION WIDTH 13.3 % (11.5-14.5); WHITE BLOOD COUNT 6.1 K/mm3 (4.0-10.0)
[2016-12-22 05:22] LABS: CALCIUM LEVEL 8.4 MG/DL (8.5-10.1); CREATININE FOR GFR 1.17 MG/DL (0.55-1.02); GLOMERULAR FILTRATION RATE 51.3 (>51); POTASSIUM SERUM 4.1 MEQ/L (3.5-5.1)
[2016-12-22 07:15] VITALS: BP 141/75
[2016-12-22] MEDS ORDERED: FLUDROCORTISONE ACETATE 0.1 MG TAB PO SCH (09:00)
[2016-12-22] MEDS: DOCUSATE SODIUM 100 MG CAP PO SCH ×2 (09:01→20:22)
[2016-12-22] MEDS: ACETAMINOPHEN TAB 650MG DOSE (2X325MG) PO PRN ×2 (09:01→15:29)
[2016-12-22] MEDS: buPROPion **XL** TABLET 150MG (WELLBUTRIN XL) PO SCH (09:01)
[2016-12-22] MEDS: LACTULOSE 20 GM/30 ML SYRUP UD PO SCH (09:01)
[2016-12-22] MEDS: CYANOCOBALAMIN 500 MCG TAB PO SCH (09:02)
[2016-12-22] MEDS: NIFEdipine 10 MG CAP PO SCH (09:02)
[2016-12-22] MEDS: POTASSIUM CHLORIDE 10 MEQ SR TABLET PO SCH ×2 (09:02→20:23)
[2016-12-22] MEDS: OMEPRAZOLE 20 MG CAP PO SCH (09:02)
[2016-12-22] MEDS: PREGABALIN 100 MG CAP (LYRICA) PO SCH ×2 (09:02→20:22)
[2016-12-22] MEDS: ASPIRIN 81 MG ENTERIC TAB PO SCH (09:02)
[2016-12-22] MEDS: amLODIPine 5 MG TAB PO SCH (09:03)
[2016-12-22] MEDS: LISINOPRIL *2.5 MG* TAB PO SCH (09:03)
[2016-12-22] MEDS: HumaLOG INSULIN (NovoLOG) PER UNIT SC SCH ×4 (09:04→21:00)
[2016-12-22 12:00] VITALS: BP 119/74
--- NOTE | 2016-12-22 12:11 | IPN ---
DATE: 12/19/2016 This is a 56-year-old female admitted for metabolic encephalopathy. She was noted to have hypertension while in the emergency department, which we have addressed with modifying her medication. Her head CT was negative. However, she did continue to have issues with her mentation with normal lab work other than what appeared to be a mild urinary tract infection. MRI of the brain was performed and did show two small areas of restricted diffusion of the head and left corpus callosum and the left basal ganglia, consistent with tiny acute infarcts. I will discuss this case further with neurology. Will go ahead and continue to watch her blood pressure, leave her on telemetry, and would like to get a 2D echocardiogram and will see if neurology can see her sometime tomorrow as well as check a lipid panel and start her on low-dose aspirin.
--- NOTE | 2016-12-22 12:13 | IPN ---
DATE: 12/22/2016 Noa is seen in progressive care unit (PCU). She is much better today. She was anxious, tremulous and confused yesterday. I think that this was due to not getting her typical psychiatric medications and restarted yesterday. Today, she is calm, focused and feels and looks much better. EXAMINATION: 141/75, pulse 70, respiratory rate 20, 99% oxygen saturation, 97.2 degrees. General appearance: Alert , conversant, in no distress. Answers are appropriate and goal directed. She is no longer tremulous. She has no pressured speech. Heart: Regular rate and rhythm without murmur. I/ systolic ejection murmur. Lungs clear. Abdomen: Soft, nontender. Neurologic exam show cranial nerves II-XII to be intact. Strength normal in the arms and legs. Sensation normal to light touch. Reflexes normal biceps, patellar, Achilles site. Coordination normal [id number] testing. Normal coordination. No facial droop or weakness. Romberg is borderline positive. She has quite a bit of truncal instability, but I think that may be from her peripheral neuropathy as when we gave her a task of [id number] testing she ceased to waiver or sway and had normal Romberg with distraction. LABORATORIES: CBC is unremarkable and unchanged. Chemistry profile is unremarkable. Creatinine is 1. (dictation cut off) IMPRESSION: 1. Stroke. Confirmed by MRI. She is asymptomatic neurologically and seems to have had a full recovery. She did not pass her physical therapy evaluation. Nurses however, indicate that she actually ambulated independently this morning. Hopefully, she will be stable for discharge tomorrow. She is on statin with atorvastatin, aspirin 81mg daily. Continue physical therapy. 2. Enterobacter urinary tract infection (UTI). Continue ceftriaxone. I would like to avoid quinolones due to her anxiety and psychiatric problems. Provide another day of ceftriaxone, then change to oral antibiotics. 3. Chronic kidney disease, status post right nephrectomy. Creatinine is back to baseline. Follows with nephrology as an outpatient. 4. Acute renal failure. This has resolved. 5. Diabetes. Good control in the hospital, not compliant as an outpatient. Hemoglobin A1c is between 12-13. Blood sugars are in generally the 150 range, a little higher after eating. We will increase her basal insulin dose today based on her coverage yesterday. 5. Chronic anxiety/depression. I restarted her medication. She is much calmer today. Would continue these upon discharge. 6. Chronic pain problems with peripheral neuropathy. She is followed by the pain clinic. Restarted her tramadol, Lyrica, as well as her Wellbutrin yesterday, and she has less pain in her legs and feels better. Plan is for discharge tomorrow if she passes her home safety evaluation.
[2016-12-22] MEDS ORDERED: diphenhydrAMINE 25 MG CAP PO PRN (13:30)
[2016-12-22 16:00] VITALS: BP 117/69
[2016-12-22 20:00] VITALS: BP 162/90
[2016-12-22] MEDS: cefTRIAXone SOD 1 GM in D5W MINI-BAG PLUS 50 ML IV SCH (20:19)
[2016-12-22] MEDS: AMITRIPTYLINE 50 MG TAB PO SCH (20:22)
[2016-12-22] MEDS: ATORVASTATIN 20 MG TAB PO SCH (20:22)
[2016-12-22] MEDS ORDERED: LEVEMIR (INSULIN DETEMIR) 1 UNITS/0.01ML SC SCH (21:00)
[2016-12-23] VITALS: BP 129/76
[2016-12-23 04:00] VITALS: BP 141/81
[2016-12-23] MEDS: HEPARIN SOD (PORCINE) 5000 UNITS/ML VIAL SC SCH (05:29)
[2016-12-23 06:02] LABS: BASO % 0.9 % (0.0-1.0); EOS # 0.3 K/mm3 (0.0-0.50); EOS % 5.3 % (0.0-3.0); LARGE UNSTAINED CELL # 0.1 K/mm3 (0.0-0.4); LARGE UNSTAINED CELL % 2.2 % (0.0-4.0); LYMPH # 1.5 K/mm3 (1.5-4.5); LYMPH % 25.5 % (24.0-44.0); MEAN CORPUSCULAR HEMOGLOBIN 31.1 pg (27.0-33.0); MEAN CORPUSCULAR VOLUME 91.4 fl (80.0-96.0); MONO # 0.5 K/mm3 (0.0-0.8); NEUTROPHILS # 3.1 K/mm3 (1.8-7.7); PLATELET COUNT, AUTOMATED 312 k/mm3 (150-450); RED CELL DISTRIBUTION WIDTH 13.1 % (11.5-14.5); WHITE BLOOD COUNT 5.5 K/mm3 (4.0-10.0)
[2016-12-23 06:23] LABS: CALCIUM LEVEL 8.5 MG/DL (8.5-10.1); CREATININE FOR GFR 1.28 MG/DL (0.55-1.02); GLOMERULAR FILTRATION RATE 46.3 (>51); POTASSIUM SERUM 4.4 MEQ/L (3.5-5.1)
[2016-12-23 07:15] VITALS: BP 168/82
[2016-12-23] MEDS: traMADol 50 MG TAB PO PRN (07:43)
[2016-12-23] MEDS: LACTULOSE 20 GM/30 ML SYRUP UD PO SCH (07:49)
[2016-12-23] MEDS: PREGABALIN 100 MG CAP (LYRICA) PO SCH (07:50)
[2016-12-23] MEDS: DOCUSATE SODIUM 100 MG CAP PO SCH (07:50)
[2016-12-23] MEDS: CYANOCOBALAMIN 500 MCG TAB PO SCH (07:50)
[2016-12-23] MEDS: POTASSIUM CHLORIDE 10 MEQ SR TABLET PO SCH (07:50)
[2016-12-23] MEDS: OMEPRAZOLE 20 MG CAP PO SCH (07:50)
[2016-12-23 07:51] VITALS: BP 168/82
[2016-12-23] MEDS: NIFEdipine 10 MG CAP PO SCH (07:51)
[2016-12-23] MEDS: LISINOPRIL *2.5 MG* TAB PO SCH (07:51)
[2016-12-23] MEDS: HumaLOG INSULIN (NovoLOG) PER UNIT SC SCH (07:52)
[2016-12-23] MEDS: buPROPion **XL** TABLET 150MG (WELLBUTRIN XL) PO SCH (07:52)
[2016-12-23] MEDS: amLODIPine 5 MG TAB PO SCH (07:52)
[2016-12-23] MEDS: ASPIRIN 81 MG ENTERIC TAB PO SCH (07:52)
[2016-12-23] MEDS ORDERED: MACR100C3 PO (10:39)
[2016-12-23] MEDS ORDERED: ATOR1TAB21 PO (10:39)
--- NOTE | 2016-12-23 14:22 | DS.PDOC ---
Discharge Summary General Date of Admission Dec 19, 2016 at 19:13 Date of Discharge 12/23/16 Primary Care Physician: Opal Peters R.N., A.N.P. Discharge Summary PROCEDURES PERFORMED DURING STAY: None. ADMITTING DIAGNOSES: 1. . 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 . Urinary tract infection DISCHARGE DIAGNOSES: 1. . 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 . Urinary tract infection COMPLICATIONS/CHIEF COMPLAINT: Metabolic Encephalopathy;Uti. HISTORY OF PRESENT ILLNESS: . 56-year-old female with a past medical history significant for type 2 diabetes and diabetic neuropathy, hypertension, dyslipidemia, non-oxygen dependent COPD, CKD stage III with right radical nephrectomy secondary to recurrent kidney stones and recurrent urinary tract infections, hx of urinary retention, chronic back pain with lumbar spondylosis and neuropathy, osteopenia on DEXA scan in December 2008, Raynaud's disease with gangrene in August 2016, anxiety, GERD, and CHF with diastolic dysfunction (echocardiogram 2010 with EF 65% diastolic dysfunction with trace mitral insufficiency), and diverticulosis presents to the ER with a chief complaint of altered mental status. Apparently the patient had been complaining of some generalized weakness in her lower extremities with multiple falls during this time. Prior to presenting to the hospital the patient was noted to be found unresponsive to the prompting of her family. The patient was subsequently brought to the emergency room for further evaluation and management. In the ER, a CT scan of the head revealed no acute findings. The patient was noted to have a urinalysis suggestive of a urinary tract infection with an elevated white blood cell count as well. The patient was admitted to the hospitalist service for further evaluation and management. During hospitalization, an MRI of the brain revealed two small areas of restricted diffusion in the head of the left corpus callosum and in the left basal ganglia, consistent with tiny acute infarcts. The patient was subsequently continued on aspirin 81 mg and atorvastatin. The patient was seen by physical therapy for further functional optimization, and was cleared to return home on 12/23/16. In addition, the patient was treated for urinary tract infection for 3 days with IV antibiotic therapy, which we will continue by transitioning to by mouth antibiotics for an additional 5 days. At this time, the patient's mentation and functional status has returned back to baseline, and she has no residual deficits. I did discuss at length with the patient's need to abstain from further tobacco use. I have advised the patient to follow- up with her primary care physician within one week for further optimalization of medical care. DISCHARGE MEDICATIONS: Please see below. ALLERGIES: Please see below. PHYSICAL EXAMINATION ON DISCHARGE: VITAL SIGNS: Please see below. GENERAL: Awake, alert, in no acute distress HEENT: Normocephalic, and atraumatic NECK: No JVD CARDIOVASCULAR EXAMINATION: Normal rate, normal rhythm RESPIRATORY EXAMINATION: Clear to auscultation bilaterally ABDOMINAL EXAMINATION: Soft, nontender, nondistended EXTREMITIES: 5/5 strength in all extremities, cranial nerves intact LABORATORY DATA: Please see below. IMAGING: MRI brain Clinical history: Unresponsive. Comparison: CT, 10/28/2016. Technique: Multiecho multiplanar MRI images of the brain were obtained without administration of contrast. Diffusion weighted images with ADC mapping was also obtained. Findings: The ventricles and sulci are symmetric bilaterally. There is a small area of restricted diffusion demonstrated in the head of the left corpus callosum. There is also a very tiny focus of restricted diffusion in the left basal ganglia. There is no midline shift, mass effect, or extra-axial fluid collection. The midline intracranial structures do not demonstrate any gross abnormalities. The cervical cranial junction is intact. The orbits are unremarkable. The visualized paranasal sinuses and mastoid air cells are clear. The osseous structures and superficial soft tissues are unremarkable. The vascular structures demonstrate appropriate flow voids. Impression: Two small areas of restricted diffusion in the head of the left corpus callosum and in the left basal ganglia, consistent with tiny acute infarcts. PROGNOSIS: Medically stable ACTIVITY: As tolerated. DIET: . 2 g low sodium diet DISCHARGE PLAN: DISPOSITION: 01 Home, Self-Care. DISCHARGE INSTRUCTIONS: 1. . Follow-up with primary care physician within one week 2. . Abstain from further tobacco use DISCHARGE CONDITION: Stable. TIME SPENT ON DISCHARGE: Greater than 30 minutes. Vital Signs/I&Os Vital Signs Date Time Temp Pulse Resp B/P (MAP) Pulse Ox O2 Delivery O2 Flow Rate FiO2 12/23/16 08:13 20 12/23/16 07:51 168/82 12/23/16 07:43 Room Air 12/23/16 07:15 97.8 85 95 I&O- Last 24 Hours up to 6 AM 12/23/16 05:59 Intake Total 1130 ml Output Total 400 ml Balance 730 ml Laboratory Data Labs 24H Laboratory Tests 2 12/22/16 16:58: Bedside Glucose (Misc Panel) 284H 12/22/16 21:18: Bedside Glucose (Misc Panel) 259H 12/23/16 05:17: White Blood Count 5.5, Red Blood Count 3.74L, Hemoglobin 11.6L, Hematocrit 34.2L , Mean Corpuscular Volume 91.4, Mean Corpuscular Hemoglobin 31.1, Mean Corpuscular Hemoglobin Concent 34.0, Red Cell Distribution Width 13.1, Platelet Count 312, Neutrophils (%) (Auto) 57.0, Lymphocytes (%) (Auto) 25.5, Monocytes ( %) (Auto) 9.0H, Eosinophils (%) (Auto) 5.3H, Basophils (%) (Auto) 0.9, Neutrophils # (Auto) 3.1, Lymphocytes # (Auto) 1.5, Monocytes # (Auto) 0.5, Eosinophils # (Auto) 0.3, Basophils # (Auto) 0.0, Large Unclassified Cells % 2.2 , Large Unclassified Cells # 0.1, Anion Gap 7L, Glomerular Filtration Rate 46.3L , Blood Urea Nitrogen 23H, Creatinine 1.28H, Sodium Level 140, Potassium Level 4.4, Chloride Level 110H, Carbon Dioxide Level 23, Calcium Level 8.5 CBC/BMP Laboratory Tests 12/23/16 05:17 Red Blood Count 3.74 L, Mean Corpuscular Volume 91.4, Mean Corpuscular Hemoglobin 31.1, Mean Corpuscular Hemoglobin Concent 34.0, Red Cell Distribution Width 13.1, Neutrophils (%) (Auto) 57.0, Lymphocytes (%) (Auto) 25.5, Monocytes (%) (Auto) 9.0 H, Eosinophils (%) (Auto) 5.3 H, Basophils (%) ( Auto) 0.9, Neutrophils # (Auto) 3.1, Lymphocytes # (Auto) 1.5, Monocytes # (Auto ) 0.5, Eosinophils # (Auto) 0.3, Basophils # (Auto) 0.0, Calcium Level 8.5 FSBS Laboratory Tests Test 12/22/16 16:58 12/22/16 21:18 Range/Units Bedside Glucose (Misc Panel) 284 259 70-105 MG/DL Microbiology Microbiology 12/19/16 Blood Culture - Preliminary, Resulted No Growth after 72 hours. All specime... 12/19/16 Blood Culture - Preliminary, Resulted No Growth after 72 hours. All specime... 12/19/16 Urine Culture - Final, Complete Enterobacter Cloacae Complex Discharge Medications Scheduled (Anoro Ellipta 62.5-25 Mcg/INH) 1 Aer Aer, 1 AER INH DAILY, (Reported) (Trilipix) 135 Mg Cap, 135 MG PO DAILY, (Reported) (Toujeo Solostar) 300 Unit/Ml Inj, 64 UNIT SC DAILY, (Reported) Alendronate Sodium (Fosamax) 70 Mg Tab, 70 MG PO QWEEK, (Reported) MONDAYS Amitriptyline HCl (Amitriptyline HCl) 10 Mg Tab, 50 MG PO QHS, (Reported) Aspirin (Aspirin EC) 81 Mg Tabec, 81 MG PO DAILY, (Reported) Atorvastatin Calcium (Atorvastatin Calcium) 20 Mg Tab, 40 MG PO QHS Bethanechol Chl (Bethanechol Chloride) 50 Mg Tab, 25 MG PO TID, (Reported) Bupropion HCl (Bupropion HCl Xl) 300 Mg Tab, 300 MG PO DAILY, (Reported) Cholestyramine (Questran) 4 Gm Pow, 4 GM PO BID, (Reported) Fludrocortisone Acetate (Fludrocortisone Acetate) 0.1 Mg Tab, 0.1 MG PO 3XW, ( Reported) MONDAYS, WEDNESDAYS AND FRIDAYS Gabapentin (Gabapentin) 100 Mg Cap, 100 MG PO TID, (Reported) Insulin Aspart (Novolog) 100 U/Ml Inj, 1 DOSE SC TID, (Reported) per sliding scale Lactulose (Lactulose) 10 Gm/15 Ml Kanwal, 15 ML PO DAILY, (Reported) Lipoic Acid (Thioctic Acid) (Alpha Lipoic Acid) 200 Mg Cap, 200 MG PO DAILY, ( Reported) Lisinopril (Lisinopril) 2.5 Mg Tab, 2.5 MG PO DAILY, (Reported) Magnesium Oxide (Magnesium) 400 Mg Tab, 400 MG PO DAILY, (Reported) Nifedipine (Nifedipine) 10 Mg Cap, 10 MG PO DAILY, (Reported) Nitrofurantoin Monohydrate Mac (Macrobid) 100 Mg Cap, 100 MG PO BID Omeprazole (Omeprazole) 40 Mg Cap, 40 MG PO DAILY, (Reported) Potassium Chloride (K-Tab) 20 Meq Tab, 20 MEQ PO BID, (Reported) Pregabalin (Lyrica) 150 Mg Cap, 150 MG PO BID, (Reported) Tizanidine Hydrochloride (Tizanidine HCl) 2 Mg Cap, 2 MG PO TID, (Reported) Scheduled PRN (Flonase Allergy Relief) 50 Mcg/Act Spr, 50 MCG NA BID PRN for NASAL CONGESTION , (Reported) Albuterol Sulfate (Ventolin Hfa) 200 Puff/8 Gm Aers, 2 PUFF INH QID PRN for SHORTNESS OF BREATH, (Reported) Baclofen (Baclofen) 10 Mg Tab, 10 MG PO BID PRN for SPASMS, (Reported) Docusate Sodium (Colace) 100 Mg Cap, 100 MG PO TID PRN for CONSTIPATION, ( Reported) Nitroglycerin (Nitrostat) 0.4 Mg Subl, 0.4 MG SL NITRO PRN for CHEST PAIN, ( Reported) Oxycodone/Acetaminophen (Oxycodone/Acetaminophen 5-325 mg) 1 Tab Tab, 1 TAB PO Q4H PRN for PAIN, (Reported) Polyethylene Glycol (Miralax) 1 Pow Pow, 17 GM PO DAILY PRN for CONSTIPATION, ( Reported) Sumatriptan Succinate (Sumatriptan Succinate) 50 Mg Tab, 50 MG PO ASDIRECTED PRN for MIGRAINE, (Reported) Tramadol HCl (Tramadol HCl) 50 Mg Tab, 50 MG PO Q6HP PRN for PAIN, (Reported) Allergies Coded Allergies: Ciprofloxacin (Verified Allergy, Intermediate, RASH, 10/28/16) TASHA MEDEIROS MD Dec 23, 2016 14:22
--- NOTE | 2016-12-24 06:26 | EEG ---
DATE OF PROCEDURE: 12/22/2016 DIAGNOSIS: Seizure. EEG NUMBER: [id number] HISTORY: The patient is a 56-year-old woman who presented to the emergency department due to unresponsiveness. She was incontinent of urine on arrival. The patient is homebound and was found unresponsive by her sister. This EEG was done to rule out epileptic potential. She is currently taking aspirin, nifedipine, lisinopril, amlodipine, Lyrica, etc. TECHNICAL DESCRIPTION: This digital EEG was recorded by 21 scalp, ear and two EKG electrodes and was reviewed in bipolar and referential montages following reformatting in 10-20 international electrode placement system. INTERPRETATION: The patient was noted to be in awake state during this EEG. Resting awake background rhythm consisted of well-formed posterior dominant rhythm with anterior/posterior gradient comprising of 10 Hz alpha activity measuring 15-40 microvolts in amplitude which was symmetric and reactive to eye opening. No sleep was achieved. Hyperventilation elicited mild theta slowing of background rhythm. Photic stimulation at the 3-30 Hz elicited symmetric photic driving especially at mid frequencies. EKG revealed normal sinus rhythm. No focal, lateralizing or epileptiform abnormalities were seen. No clinical or electrographic seizures were recorded. CONCLUSION: This EEG in awake state is within normal limits.
== END 2016-12-23 11:20 | disposition home or self-care (01) | DRG 45 ==
LOC: M ED 19:07 → M ED INP 19:13 → M PCU 22:16
PROVIDERS: ADMIT Hospitalist; ATTEND Internal Medicine
DX: I63.59 Cerebral infarction due to unspecified occlusion or stenosis of other cerebral artery (principal); G93.41 Metabolic encephalopathy; N17.9 Acute kidney failure, unspecified; I13.0 Hypertensive heart and chronic kidney disease with heart failure and stage 1 through stage 4 chronic kidney disease, or unspecified chronic kidney disease; I50.32 Chronic diastolic (congestive) heart failure; E87.2 Acidosis; N18.3 Chronic kidney disease, stage 3 (moderate); E11.42 Type 2 diabetes mellitus with diabetic polyneuropathy; N39.0 Urinary tract infection, site not specified; E78.5 Hyperlipidemia, unspecified; K21.9 Gastro-esophageal reflux disease without esophagitis; J44.9 Chronic obstructive pulmonary disease, unspecified; J45.909 Unspecified asthma, uncomplicated; G43.709 Chronic migraine without aura, not intractable, without status migrainosus; Z87.442 Personal history of urinary calculi; M43.16 Spondylolisthesis, lumbar region; I73.00 Raynaud's syndrome without gangrene; M85.80 Other specified disorders of bone density and structure, unspecified site; F41.9 Anxiety disorder, unspecified; F32.9 Major depressive disorder, single episode, unspecified; F17.210 Nicotine dependence, cigarettes, uncomplicated; R32 Unspecified urinary incontinence; R15.9 Full incontinence of feces; I16.0 Hypertensive urgency; Z90.5 Acquired absence of kidney; Z79.4 Long term (current) use of insulin; Z79.82 Long term (current) use of aspirin; Z79.899 Other long term (current) drug therapy; Z88.1 Allergy status to other antibiotic agents; B96.89 Other specified bacterial agents as the cause of diseases classified elsewhere; Z91.14 Patient's other noncompliance with medication regimen; G89.29 Other chronic pain

== ENCOUNTER → 2017-01-07 | Outpatient (CLI) | payer OTHER ==
[~2017-01-07] MED LIST changes: -ALPH1CAP PO; +ALPH200C2 PO; -ASPI81TA13 PO; +ASPI81TA24 PO; +ATOR1TAB21 PO; -ATOR40TA PO; +ATOR40TA75 PO; -AUGM875T27 PO; +AUGM875T28 PO; -BACITAB3 PO; +CIPR-249 PO; -CIPR500T89 PO; +CITRSOL8 PO; -COLA100C3 PO; +COLA100C5 PO; +FERR1TAB8 PO; +FLUD0.1T PO; -FLUD1TA PO; +GLUC1CHW11 PO; -IBUP200C PO; +IBUP200C10 PO; +KEFL500C17 PO; -KEFL500C7 PO; -LIDO5DIS36 TD; +LIDO5DIS41 TD; +MACR100C43 PO; -METH-107 PO; +METH1TAB40 PO; +OXYC1TAB23 PO; -RISP0.5T16 PO; +RISP0.5T21 PO; -RISP3TAB18 PO; +RISP3TAB20 PO; +SENN1TAB10 PO; -SENN8.6T10 PO; -SENO8.6T2 PO; +SENO8.6T5 PO; -[UNRECOGNIZED DRUG - CODE] PO
--- NOTE | 2017-01-07 16:05 | REP ---
REASON: Abdominal tenderness. COMPARISON: Abdominal series of 03/10/2016. FINDINGS: KUB shows the intestinal gas pattern to be nonspecific. The organ silhouettes insofar as delineated are unremarkable. There is no evidence of free intraperitoneal air. IMPRESSION: Nonspecific. Signed by Kurt Gordon DO 01/08/2017 09:03 A
[2017-01-07 20:09] LABS: ALBUMIN 2.4 GM/DL (3.2-5.2); ALBUMIN/GLOBULIN RATIO 0.62 (1.00-1.93); BILIRUBIN,TOTAL 0.2 MG/DL (0.2-1.0); CALCIUM LEVEL 9.4 MG/DL (8.5-10.1); CREATININE FOR GFR 1.31 MG/DL (0.55-1.02); TOTAL PROTEIN 6.3 GM/DL (6.4-8.2)
[2017-01-07 20:12] LABS: POTASSIUM SERUM 5.2 MEQ/L (3.5-5.1)
[2017-01-07 20:26] LABS: BASO # 0.1 K/mm3 (0.0-0.2); BASO % 1.2 % (0.0-1.0); EOS # 0.2 K/mm3 (0.0-0.50); EOS % 2.2 % (0.0-3.0); LARGE UNSTAINED CELL # 0.2 K/mm3 (0.0-0.4); LYMPH # 1.7 K/mm3 (1.5-4.5); LYMPH % 17.5 % (24.0-44.0); MEAN CORPUSCULAR HEMOGLOBIN 30.7 pg (27.0-33.0); MEAN CORPUSCULAR VOLUME 90.3 fl (80.0-96.0); MONO # 0.6 K/mm3 (0.0-0.8); MONO % 5.7 % (0.0-5.0); NEUTROPHILS % 71.5 % (36.0-66.0); PLATELET COUNT, AUTOMATED 370 k/mm3 (150-450); RED CELL DISTRIBUTION WIDTH 12.8 % (11.5-14.5); WHITE BLOOD COUNT 9.8 K/mm3 (4.0-10.0)
== END ==
LOC: M WUC 15:16
PROVIDERS: ATTEND Physician Assistant
DX: R10.814 Left lower quadrant abdominal tenderness (principal)

== ENCOUNTER → 2017-01-08 | Outpatient (CLI) | payer OTHER | LOC: M PAIN 10:40 | PROVIDERS: ATTEND Nurse Practitioner Family | DX: M47.816 Spondylosis without myelopathy or radiculopathy, lumbar region (principal) ==

== ENCOUNTER 2017-01-09 16:39 | Emergency (ER) | payer OTHER ==
[~2017-01-09] VITALS: Ht 154.9 cm; Wt 73.6 kg
[~2017-01-09 16:39] MED LIST changes: -CITRSOL8 PO
[2017-01-09] MEDS ORDERED: KETOROLAC 30 MG/ML VIAL (J1885) IV ONE (17:15)
[2017-01-09] MEDS ORDERED: NS 500 ML IV ONE (17:15)
[2017-01-09 17:27] LABS: BASO # 0.1 K/mm3 (0.0-0.2); BASO % 0.9 % (0.0-1.0); EOS # 0.3 K/mm3 (0.0-0.50); EOS % 3.5 % (0.0-3.0); LARGE UNSTAINED CELL # 0.2 K/mm3 (0.0-0.4); LARGE UNSTAINED CELL % 2.3 % (0.0-4.0); LYMPH # 2.5 K/mm3 (1.5-4.5); MEAN CORPUSCULAR HEMOGLOBIN 30.5 pg (27.0-33.0); MEAN CORPUSCULAR HGB CONC 34.2 g/dl (32.0-36.5); MEAN CORPUSCULAR VOLUME 89.2 fl (80.0-96.0); MONO # 0.6 K/mm3 (0.0-0.8); MONO % 6.4 % (0.0-5.0); NEUTROPHILS # 5.8 K/mm3 (1.8-7.7); PLATELET COUNT, AUTOMATED 363 k/mm3 (150-450); RED CELL DISTRIBUTION WIDTH 12.7 % (11.5-14.5); WHITE BLOOD COUNT 9.5 K/mm3 (4.0-10.0)
[2017-01-09 17:50] LABS: ALBUMIN 2.5 GM/DL (3.2-5.2); ALBUMIN/GLOBULIN RATIO 0.63 (1.00-1.93); ALKALINE PHOSPHATASE 132 U/L (45-117); ALT/SGPT 45 U/L (12-78); ANION GAP 8 MEQ/L (8-16); AST/SGOT 21 U/L (15-37); BILIRUBIN,DIRECT < 0.1 MG/DL (0.0-0.2); BILIRUBIN,TOTAL 0.2 MG/DL (0.2-1.0); BLOOD UREA NITROGEN 34 MG/DL (7-18); CALCIUM LEVEL 9.3 MG/DL (8.5-10.1); CARBON DIOXIDE LEVEL 23 MEQ/L (21-32); CHLORIDE LEVEL 103 MEQ/L (98-107); CREATININE FOR GFR 1.32 MG/DL (0.55-1.02); GLOMERULAR FILTRATION RATE 44.6 (>51); GLUCOSE, FASTING 218 MG/DL (70-105); POTASSIUM SERUM 4.5 MEQ/L (3.5-5.1); SODIUM LEVEL 134 MEQ/L (136-145); TOTAL PROTEIN 6.5 GM/DL (6.4-8.2)
[2017-01-09] MEDS ORDERED: CITRSOL8 PO (19:06)
[2017-01-09 19:10] VITALS: BP 119/79
--- NOTE | 2017-01-09 21:42 | REP ---
CT ABDOMEN AND PELVIS WITHOUT CONTRAST: HISTORY: Hematuria. COMPARISON: 12/19/2016. The patient is status-post right nephrectomy and adrenalectomy. The liver, gallbladder, pancreas, spleen left adrenal gland and left kidney are normal in appearance. There is no mass, adenopathy, or free fluid. The visualized lungs are clear. IMPRESSION: The patient is status-post right nephrectomy and adrenalectomy. CT PELVIS: The urinary bladder is normal in appearance. There is no mass, adenopathy, or free fluid. Degenerative change is present in the spine. IMPRESSION: Negative CT pelvis. Signed by Philip Camargo MD 01/10/2017 07:56 A
== END 2017-01-09 19:26 | disposition home or self-care (01) ==
LOC: M ED 16:39
DX: R10.30 Lower abdominal pain, unspecified (principal); K59.00 Constipation, unspecified; N18.9 Chronic kidney disease, unspecified; F17.210 Nicotine dependence, cigarettes, uncomplicated; Z87.442 Personal history of urinary calculi; Z79.899 Other long term (current) drug therapy; Z79.82 Long term (current) use of aspirin; Z79.4 Long term (current) use of insulin; Z88.1 Allergy status to other antibiotic agents
CPT/HCPCS: 74176; 80048; 80076; 81001; 83690; 85025; 96374; 99283; J1885

== ENCOUNTER → 2017-01-19 | Outpatient (REF) ==
[~2017-01-19] MED LIST changes: +CITRSOL8 PO
== END ==
LOC: M LAB 12:05
DX: Z02.89 Encounter for other administrative examinations (principal)